=== PATIENT | female | born 1940 | race African-American/Black ===

== ENCOUNTER 2017-02-17 20:01 | Inpatient (IN) | payer OTHER ==
[~2017-02-17] VITALS: Ht 142.2 cm; Wt 43.3 kg
[~2017-02-17 20:01] MED LIST: ALLO100T PO; AMIO200T2 PO; AMLO5TAB2 PO; CLON0.1T PO; FURO20TA3 PO; LISI-334 PO; POTA10TA5 PO
[2017-02-17 21:21] LABS: BASO # 0.1 x10^3/uL (0.0-0.2); BASO % 1 % (0-3); EOS % 3 % (0-3); HEMATOCRIT 33.9 % (36.0-47.0); LYMPH # 1.4 x10^3/uL (1.0-4.8); LYMPH % 26 % (24-48); MEAN CORPUSCULAR HEMOGLOBIN 29 pg (25-35); MEAN CORPUSCULAR HGB CONC 33 g/dL (31-37); MEAN CORPUSCULAR VOLUME 90 fL (79-100); MONO % 9 % (0-9); NEUT % 61 % (31-73); PLATELET COUNT 222 x10^3/uL (140-400); RED BLOOD COUNT 3.77 x10^6/uL (3.50-5.40); RED CELL DISTRIBUTION WIDTH 16.3 % (11.5-14.5); WHITE BLOOD COUNT 5.4 x10^3/uL (4.0-11.0)
[2017-02-17 21:38] LABS: ALBUMIN 3.7 g/dL (3.4-5.0); ALBUMIN/GLOBULIN RATIO 0.8 (1.0-1.7); CALCIUM 11.3 mg/dL (8.5-10.1); CREATININE 1.4 mg/dL (0.6-1.0); GFR 43.9; PROTHROMBIN TIME PATIENT 12.1 SEC (11.7-14.0); TOTAL BILIRUBIN 0.6 mg/dL (0.2-1.0); TOTAL PROTEIN 8.4 g/dL (6.4-8.2)
[2017-02-17 21:40] LABS: POTASSIUM 2.9 mmol/L (3.5-5.1)
--- NOTE | 2017-02-17 21:42 | RAD ---
INDICATION: 77-year-old female with right-sided weakness COMPARISON: None TECHNIQUE: Axial, noncontrast CT images obtained through the head. One or more of the following individualized dose reduction techniques were utilized for this examination: 1. Automated exposure control; 2. Adjustment of the mA and/or kV according to patient size; 3. Use of iterative reconstruction technique. FINDINGS: No acute intracranial process is identified, specifically no acute blood products, midline shift, mass effect or extra-axial fluid collections. Ventricles and sulci appear appropriate for patient's age. Basilar cisterns are maintained. Diffuse periventricular and subcortical white matter low attenuation is nonspecific although likely sequelae of chronic microvascular ischemia. Intracranial vascular calcifications are present. The visualized paranasal sinuses are clear. Mastoid air cells are clear. No calvarial fracture is present. Overlying scalp is intact. IMPRESSION: No acute intracranial process. Findings suggestive of chronic microvascular ischemia. Electronically signed by: Ernestine Osborn (Feb 17, 2017 21:40:29)
[2017-02-17 22:16] LABS: BILIRUBIN,URINE NEGATIVE (NEG); GLUCOSE,URINE NEGATIVE (NEG); NITRITE,URINE NEGATIVE (NEG); PH,URINE 6.5; PROTEIN,URINE NEGATIVE (NEG-TRACE)
[2017-02-17 22:24] LABS: BACTERIA,URINE 0 /HPF (0-FEW); RBC,URINE OCC /HPF (0-2); SQUAMOUS EPITHELIAL CELL,UR FEW /LPF; WBC,URINE OCC /HPF (0-4)
[2017-02-17 22:31] LABS: BARBITURATES NEG (NEG); BENZODIAZEPINES NEG (NEG); CANNABINOIDS NEG (NEG); COCAINE NEG (NEG); METHADONE NEG (NEG); OPIATES NEG (NEG); PHENCYCLIDINE NEG (NEG)
[2017-02-17 22:32] LABS: ETHANOL, URINE NEG (NEG)
[2017-02-17] MEDS ORDERED: POTASSIUM CL 40MEQ IN 0.9%NACL 1,000 ML IV ONE (23:30)
[2017-02-17] MEDS ORDERED: POTASSIUM CHLORIDE 20 MEQ/15 ML ORAL LIQUID. PO ONE (23:30)
[2017-02-17] MEDS ORDERED: ASPIRIN 81 MG TAB.CHEW PO ONE (23:30)
[2017-02-18] VITALS (7 sets, daily range): BP systolic 139–170; BP diastolic 58–82
[2017-02-18] MEDS ORDERED: ACETAMINOPHEN 325 MG TABLET. PO PRN (01:15)
[2017-02-18] MEDS ORDERED: ONDANSETRON PF 4 MG/2 ML VIAL. IV PRN (01:15)
--- NOTE | 2017-02-18 02:13 | ED.ADGEN ---
Past Medical History Past Medical History: Hypertension, Other Past Surgical History: Hysterectomy Alcohol Use: Occasionally Drug Use: None Adult General Chief Complaint Chief Complaint: LOWER EXTREMITY SWELLING HPI HPI Patient is a 77 year old woman, history of hypertension, who presents to the emergency department with a complaint of "dragging my right foot". Patient states that she noted difficulty moving her right lower extremity that began this morning. It is unclear in the exact onset of symptoms. Patient states she also began experiencing some weakness and difficulty with fine motor control in her right upper extremity several days ago. Patient denies any history of CVA, denies any headache, any vision changes, any slurred speech, any chest pain, any shortness breath, any other areas of weakness. Denies any numbness or tingling. Denies any injuries, travel or surgery. Any missed doses of medications, any drugs, alcohol or cigarettes. Review of Systems Review of Systems Constitutional: Denies fever or chills. [] Eyes: Denies change in visual acuity. [] HENT: Denies nasal congestion or sore throat. [] Respiratory: Denies cough or shortness of breath. [] Cardiovascular: Denies chest pain or edema. [] GI: Denies abdominal pain, nausea, vomiting, bloody stools or diarrhea. [] : Denies dysuria. [] Musculoskeletal: Denies back pain or joint pain. [] Integument: Denies rash. [] Neurologic: Denies headache, weakness and decreased motor control in the right upper and right lower extremity. Endocrine: Denies polyuria or polydipsia. [] Lymphatic: Denies swollen glands. [] Psychiatric: Denies depression or anxiety. [] Current Medications Current Medications Current Medications Medications (Trade) Dose Ordered Sig/Camilo Start Time Stop Time Status Last Admin Dose Admin Aspirin (Children'S Aspirin) 324 mg 1X ONCE 02/17/17 23:30 02/17/17 23:31 DC 02/17/17 23:25 324 MG Potassium Chloride 40 meq 40 meq 1X ONCE 02/17/17 23:30 02/17/17 23:31 DC 02/17/17 23:27 40 MEQ Potassium Chloride/Sodium Chloride (KCl 40 Meq-NS 1,000 ml Iv Soln) 1,000 ml @ 75 mls/hr 1X ONCE 02/17/17 23:30 02/18/17 12:49 02/17/17 23:30 75 MLS/HR Allergies Allergies Allergies Coded Allergies Type Severity Reaction Last Updated Verified No Known Drug Allergies 11/12/14 No Physical Exam Physical Exam Constitutional: Well developed, well nourished, no acute distress, non-toxic appearance. [] HENT: Normocephalic, atraumatic, bilateral external ears normal, oropharynx moist, no oral exudates, nose normal. [] Eyes: PERRLA, EOMI, conjunctiva normal, no discharge. [] Neck: Normal range of motion, no tenderness, supple, no stridor. [] Cardiovascular:Heart rate regular rhythm, no murmur, S1, S2, rubs or gallops. [] Lungs & Thorax: Bilateral breath sounds clear to auscultation, no wheezing, rhonchi, rales. No chest or crepitus or tenderness. [] Abdomen: Bowel sounds normal, soft, no tenderness, no masses, no pulsatile masses. [] Skin: Warm, dry, no erythema, no rash. [] Back: No tenderness, no CVA tenderness. [] Extremities: No tenderness, no cyanosis, no clubbing, ROM intact, no edema. [] Neurologic: Alert and oriented X 3, patient with positive pronator drift on the right, ataxia with the right lower extremity, loss of 500 control in the right hand. Diminished sensation on the right upper and lower extremity. Cranial nerves are intact. Psychologic: Affect normal, judgement normal, mood normal. [] Current Patient Data Vital Signs Vital Signs Date Time Temp Pulse Resp B/P Pulse Ox O2 Delivery O2 Flow Rate FiO2 02/17/17 22:14 97.9 98 161/73 96 97.9 02/17/17 20:27 14 Room Air Lab Values Laboratory Tests Test 02/17/17 20:44 02/17/17 22:03 White Blood Count 5.4x10^3/uL (4.0-11.0) Red Blood Count 3.77x10^6/uL (3.50-5.40) Hemoglobin 11.0g/dL (12.0-15.5) L Hematocrit 33.9% (36.0-47.0) L Mean Corpuscular Volume 90fL (79-100) Mean Corpuscular Hemoglobin 29pg (25-35) Mean Corpuscular Hemoglobin Concent 33g/dL (31-37) Red Cell Distribution Width 16.3% (11.5-14.5) H Platelet Count 222x10^3/uL (140-400) Neutrophils (%) (Auto) 61% (31-73) Lymphocytes (%) (Auto) 26% (24-48) Monocytes (%) (Auto) 9% (0-9) Eosinophils (%) (Auto) 3% (0-3) Basophils (%) (Auto) 1% (0-3) Neutrophils # (Auto) 3.3x10^3uL (1.8-7.7) Lymphocytes # (Auto) 1.4x10^3/uL (1.0-4.8) Monocytes # (Auto) 0.5x10^3/uL (0.0-1.1) Eosinophils # (Auto) 0.2x10^3/uL (0.0-0.7) Basophils # (Auto) 0.1x10^3/uL (0.0-0.2) Prothrombin Time 12.1SEC (11.7-14.0) Prothrombin Time INR 1.0 (0.8-1.1) PTT 28SEC (24-38) Sodium Level 144mmol/L (136-145) Potassium Level 2.9mmol/L (3.5-5.1) *L Chloride Level 105mmol/L (98-107) Carbon Dioxide Level 28mmol/L (21-32) Anion Gap 11 (6-14) Blood Urea Nitrogen 13mg/dL (7-20) Creatinine 1.4mg/dL (0.6-1.0) H Estimated GFR (Cockcroft-Gault) 43.9 BUN/Creatinine Ratio 9 (6-20) Glucose Level 92mg/dL (70-99) Calcium Level 11.3mg/dL (8.5-10.1) H Total Bilirubin 0.6mg/dL (0.2-1.0) Aspartate Amino Transferase (AST) 53U/L (15-37) H Alanine Aminotransferase (ALT) 79U/L (14-59) H Alkaline Phosphatase 149U/L (46-116) H Troponin I Quantitative < 0.017ng/mL (0.000-0.055) UB-Dpm-T-Type Natriuretic Peptide 114pg/mL (0-449) Total Protein 8.4g/dL (6.4-8.2) H Albumin 3.7g/dL (3.4-5.0) Albumin/Globulin Ratio 0.8 (1.0-1.7) L Urine Collection Type Unknown Urine Color Yellow Urine Clarity Clear Urine pH 6.5 Urine Specific [place] 1.010 Urine Protein Negativemg/dL (NEG-TRACE) Urine Glucose (UA) Negativemg/dL (NEG) Urine Ketones (Stick) Negativemg/dL (NEG) Urine Blood Negative (NEG) Urine Nitrite Negative (NEG) Urine Bilirubin Negative (NEG) Urine Urobilinogen Dipstick 1.0mg/dL (0.2 mg/dL) Urine Leukocyte Esterase Negative (NEG) Urine RBC Occ/HPF (0-2) Urine WBC Occ/HPF (0-4) Urine Squamous Epithelial Cells Few/LPF Urine Bacteria 0/HPF (0-FEW) Urine Hyaline Casts Few/HPF Urine Mucus Slight/LPF Urine Opiates Screen Neg (NEG) Urine Methadone Screen Neg (NEG) Urine Barbiturates Neg (NEG) Urine Phencyclidine Screen Neg (NEG) Urine Amphetamine/Methamphetamine Neg (NEG) Urine Benzodiazepines Screen Neg (NEG) Urine Cocaine Screen Neg (NEG) Urine Cannabinoids Screen Neg (NEG) Urine Ethyl Alcohol Neg (NEG) Laboratory Tests 02/17/17 20:44 Laboratory Tests 02/17/17 20:44 EKG EKG EC: Sinus rhythm, heart rate 90 beats minute, upright axis, QTC of 472, VT of 176, QRS of 86, low limb lead voltage, contour abnormality is noted in the inferior leads. Abnormal ECG, does not meet STEMI criteria. As interpreted by me. [] Radiology/Procedures Radiology/Procedures [] [facility] [address] [place] [address] IMAGING REPORT Signed PATIENT: KIRK SILVA ACCOUNT: [id number] : 1940 LOCATION: ER AGE: 77 SEX: F EXAM STATUS: REG ER ORD. PHYSICIAN: JOSEPHINE MENCHACA DO REASON: R sided weakness PROCEDURE: HEAD WO CONTRAST INDICATION: 77-year-old female with right-sided weakness COMPARISON: None TECHNIQUE: Axial, noncontrast CT images obtained through the head. One or more of the following individualized dose reduction techniques were utilized for this examination: 1. Automated exposure control; 2. Adjustment of the mA and/or kV according to patient size; 3. Use of iterative reconstruction technique. FINDINGS: No acute intracranial process is identified, specifically no acute blood products, midline shift, mass effect or extra-axial fluid collections. Ventricles and sulci appear appropriate for patient's age. Basilar cisterns are maintained. Diffuse periventricular and subcortical white matter low attenuation is nonspecific although likely sequelae of chronic microvascular ischemia. Intracranial vascular calcifications are present. The visualized paranasal sinuses are clear. Mastoid air cells are clear. No calvarial fracture is present. Overlying scalp is intact. IMPRESSION: No acute intracranial process. Findings suggestive of chronic microvascular ischemia. Electronically signed by: Roxana Osborn (Feb 17, 2017 21:40:29) DICTATED and SIGNED BY: ROXANA OSBORN MD DATE: 02/17/172139 CC: ASHLEE CARRION MD; JOSEPHINE MENCHACA DO ~ Impressions: Chest x-ray: One view: Normal cardiopulmonary silhouette, no focal infiltrates, no effusions, no soft tissue or bony abnormalities identified. As interpreted by me. Right Ankle x-ray: Three-view: Degenerative changes noted, no evidence of acute fracture, subluxation, soft tissue or bony abnormalities identified. Right foot x-ray: Three-view: Degenerative changes noted, no evidence of acute fracture, civilization, soft tissue or bony abnormalities identified. Course & Med Decision Making Course & Med Decision Making Pertinent Labs and Imaging studies reviewed. (See chart for details) Patient's examination concerning for neurologic abnormality, CVA. CT of the head obtained, revealed no evidence of acute abnormalities. Laboratory studies obtained revealed hypokalemia with a potassium of 2.9. Potassium was repleted in the emergency department after patient's past swallow study without issue. No other concerning finding identified. Patient was agreeable for initial hospital for evaluation of ischemic CVA. As stated, symptoms began several days ago, and patient is outside the window for any intervention. NIH scale is 5 on initial evaluation. Symptoms are unchanged and reevaluation in the ED. Findings as above discussed with Dr. Betancur of neurology, no interventions at this time recommended, aside from initiation of Plavix as patient is is already on daily aspirin, he will evaluate the patient in the hospital, MRI and carotid Dopplers ordered. Findings as above discussed with Dr. Summers of internal medicine, patient accepted to her service as a full admission to the medical telemetry floor, with neurology consultation and continued evaluation as stated. Bridge orders entered per discussion. Dragon Disclaimer Dragon Disclaimer This electronic medical record was generated, in whole or in part, using a voice recognition dictation system. Departure Impression: Primary Impression: Right sided weakness Additional Impression: CVA (cerebral vascular accident) Disposition: ADMITTED INPATIENT Admitting Physician: Other Condition: STABLE Problem Qualifiers JOSEPHINE MENCHACA DO Feb 18, 2017 02:13
[2017-02-18] MEDS ORDERED: DOXA2TAB2 PO (03:42)
[2017-02-18] MEDS ORDERED: ASPI-482 PO (03:42)
[2017-02-18] MEDS ORDERED: AMLO10TA2 PO (03:42)
[2017-02-18] MEDS ORDERED: CLON0.1T PO (03:42)
[2017-02-18] MEDS ORDERED: OMEG300C PO (03:42)
--- NOTE | 2017-02-18 06:12 | EKG ---
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
--- NOTE | 2017-02-18 07:46 | RAD ---
Carotid ultrasound, 02/18/2017: History: Right-sided weakness Duplex evaluation of the carotid arteries in neck was performed including grayscale, color-flow and spectral Doppler analysis. There is extensive atherosclerotic plaquing in both common carotid arteries as well as at the carotid bifurcations. The plaques are partially calcified. Shadowing from the plaques obscuring portions of the underlying lumen, particularly at the bifurcation levels. On the right, there is a segment of the proximal to mid internal carotid artery in which no internal color flow can be visualized. The appearance suggests occlusion versus high-grade stenosis. Similar findings were present on the 09/03/2013 study. On the left, there is turbulent flow distal to the bifurcation plaque. The peak systolic velocity in this region is 60 cm/s with an end-diastolic velocity of 18 cm/s. The Doppler findings suggest narrowing in the 0-50% diameter range, while the color images suggest a greater degree of narrowing, in the 50-70% diameter range. On the previous study a focal moderate velocity acceleration up to 250 cm/s was seen in the proximal left internal carotid artery. The lack of demonstration of that jet on the current exam is probably on a technical basis. Alternatively, critical stenosis could be causing the velocities to decrease. Antegrade flow is present in both vertebral arteries in the neck. IMPRESSION: 1. Extensive calcific plaquing in the common carotid arteries and at both carotid bifurcations. 2. 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 3. Narrowing of the proximal left internal carotid artery in the 50-70% diameter range as described above. 4. CT angiography may be useful for further evaluation, if clinically indicated. Note: Stenosis calculations for CT, MRA and conventional angiography are based upon determination of the distal ICA diameter in accordance with the NASCET methodology. Stenosis calculations for Doppler studies are derived from validated velocity criteria which are known to correlate with NASCET methodology of determining stenosis.
--- NOTE | 2017-02-18 08:23 | RAD ---
Portable chest, 02/17/2017: History: Right-sided weakness, hypertension Comparison is made to a study from 11/10/2014. The heart size is normal. There is calcific plaquing of the aorta and its branches. The pulmonary vascularity is within normal limits. There are scattered parenchymal scars. No acute infiltrates are seen. There is no evidence of pleural fluid. The bony structures are demineralized. Scattered degenerative changes are present in the spine. IMPRESSION: No acute cardiopulmonary abnormality is detected.
--- NOTE | 2017-02-18 08:41 | RAD ---
Right foot, 3 views, 02/17/2017: History: Foot pain Comparison is made to a study from 08/15/2011. The bony structures are demineralized. There are mild scattered degenerative changes, including the first MTP joint. No fracture or destructive bony lesion is seen. Arterial calcifications are present. IMPRESSION: 1. Demineralization. 2. Mild degenerative change. 3. No acute bony abnormality is detected. Right ankle, 3 views, 02/17/2017: There is bony demineralization. No acute fracture or dislocation is identified. There is moderate diffuse soft tissue swelling about the ankle. IMPRESSION: No acute bony abnormality is detected.
[2017-02-18] MEDS ORDERED: ASPIRIN ENTERIC COATED 81 MG TABLET.DR. PO SCH (09:00)
--- NOTE | 2017-02-18 09:10 | PDOC1 ---
History and Physical Date of Admission Date of Admission DATE: 02/18/17 TIME: 09:02 Identification/Chief Complaint Chief Complaint right foot weakness Source Source: Chart review, Patient History of Present Illness History of Present Illness Ms. Rome, is a 77 year old woman, admit from ER, new right foot weakness. Problem began about 24 hours ago now. was over 12 hours when presented to ER Right foot was draggeing when she walked, she thinks it feels a little better no complaint of swallowing, and performed well in ER eval She has been compliant with meds, had no pain, PCP is Dr. August Prior Hx of tobaccoism Past Medical History Cardiovascular: CAD, HTN GI: No pertinent hx Heme/Onc: No pertinent hx Hepatobiliary: No pertinent hx Musculoskeletal: low back pain Rheumatologic: No pertinent hx Infectious disease: No pertinent hx, Gonorrhea Past Surgical History Past Surgical History: Hysterectomy Family History Family History: No Significant, Hypertension Social History Smoke: Quit ALCOHOL: none Drugs: None Current Problem List Problem List Problems Medical Problems: (1) CVA (cerebral vascular accident) Status: Acute (2) Right sided weakness Status: Acute Problems: Current Medications Current Medications Current Medications Aspirin (Children'S Aspirin) 324 mg 1X ONCE PO Last administered on 02/17/17 23:25; Start 02/17/17 at 23:30; Stop 02/17/17 at 23:31; Status DC Potassium Chloride 40 meq 40 meq 1X ONCE PO Last administered on 02/17/17 23: 27; Start 02/17/17 at 23:30; Stop 02/17/17 at 23:31; Status DC Potassium Chloride/Sodium Chloride (KCl 40 Meq-NS 1,000 ml Iv Soln) 1,000 ml @ 75 mls/hr 1X ONCE IV Last administered on 02/17/17 23:30; Start 02/17/17 at 23:30; Stop 02/18/17 at 12:49 Ondansetron HCl (Zofran) 4 mg PRN Q8HRS PRN IV NAUSEA/VOMITING; Start 02/18/17 at 01:15; Stop 02/19/17 at 01:14 Acetaminophen (Tylenol) 650 mg PRN Q4HRS PRN PO FEVER; Start 02/18/17 at 01:15 ; Stop 02/19/17 at 01:14 Clopidogrel Bisulfate (Plavix) 75 mg DAILYWBKFT PO ; Start 02/18/17 at 08:00 Allopurinol (Zyloprim) 100 mg DAILY PO ; Start 02/18/17 at 09:00 Amiodarone HCl (Cordarone) 200 mg DAILY PO ; Start 02/18/17 at 09:00 Amlodipine Besylate (Norvasc) 10 mg DAILY PO ; Start 02/18/17 at 09:00 Aspirin (Ecotrin) 81 mg DAILY PO ; Start 02/18/17 at 09:00 Clonidine HCl (Catapres) 0.1 mg Q8HRS PO ; Start 02/18/17 at 09:00 Doxazosin Mesylate (Cardura) 2 mg DAILY PO ; Start 02/18/17 at 09:00 Fish Oil (Fish Oil) 1,000 mg DAILY PO ; Start 02/18/17 at 09:00 Active Scripts Active Reported Fish Oil (Jackson-3 Fatty Acids) 300 Mg Capsule 300 Mg PO DAILY Amlodipine Besylate 10 Mg Tablet 10 Mg PO DAILY Doxazosin Mesylate 2 Mg Tablet 1 Tab PO DAILY Clonidine Hcl 0.1 Mg Tablet 0.1 Mg PO Q8HRS Aspir 81 (Aspirin) 81 Mg Tablet.dr 1 Tab PO DAILY Amiodarone Hcl 200 Mg Tablet 200 Mg PO DAILY Allopurinol 100 Mg Tablet 1 Tab PO DAILY Allergies Allergies: Coded Allergies: No Known Drug Allergies (Unverified , 11/12/14) ROS General: No: Appetite, Chills, Fatigue, Malaise, Night Sweats, Other PSYCHOLOGICAL ROS: No: Anxiety, Behavioral Disorder, Concentration difficultie , Decreased libido, Depression, Disorientation, Hallucinations, Hostility, Irritablity, Memory difficulties, Mood Swings, Obsessive thoughts, Other, Physical abuse, Sexual abuse, Sleep disturbances, Suicidal ideation Eyes: No Blurry vision, No Decreased vision, No Double vision, No Dry eyes, No Excessive tearing, No Eye Pain, No Itchy Eyes, No Loss of vision, No Other, No Photophobia, No Scotomata, No Uses contacts, No Uses glasses HEENT: No: Epistaxis, Heacaches, Hearing change, Nasal congestion, Nasal discharge, Oral lesions, Other, Sinus pain, Sneezing, Snoring, Sore Throat, Tinnitus, Vertigo, Visual Changes, Vocal changes Respiratory: No: Cough, Hemoptysis, Orthopnea, Other, Pleuritic Pain, SOB with excertion, Shortness of breath, Sputum Changes, Stridor, Tachypnea, Wheezing Cardiovascular: No Chest Pain, No Edema, No Lt Headedness, No Orthopnea, No Other, No Palpitations, No Paroxysmal Noc. Dyspnea Gastrointestinal: No Abdominal Pain, No Constipation, No Diarrhea, No Hematochezia, No Melena, No Nausea, No Other, No Vomiting Genitourinary: No , No , No , No , No , No , No , No Discharge, No Dysuria, No Flank Pain, No Frequency, No Hematuria, No Incontinence, No Other, No Pain, No Retention, No Urgency Musculoskeletal: Yes Gait Disturbance, No Joint Pain, No Joint Stiffness, No Joint Swelling, No Muscle Pain, No Muscular Weakness, No Other, No Pain In:, No Swelling In: Neurological: Yes Gait Disturbance, No Behavorial Changes, No Bowel/Bladder ControlChng, No Confusion, No Dizziness, No Headaches, No Impaired Coord/balance, No Memory Loss, No Numbness/ Tingling, No Other, No Seizures, No Speech Problems, No Tremors, No Visual Changes, No Weakness Skin: No Acne, No Dry Skin, No Eczema, No Hair Changes, No Lumps, No Mole Changes, No Mottling, No Nail Changes, No Other, No Pruritus, No Rash, No Skin Lesion Changes Physical Exam General: Alert, Oriented X3, Cooperative, No acute distress HEENT: Atraumatic, PERRLA, EOMI Lungs: Clear to auscultation (limited vol) Heart: S1S2, RRR Abdomen: Normal bowel sounds, Soft Rectal Exam: not examined, deferred Extremities: No clubbing, No edema, Normal pulses Skin: No breakdown, No significant lesion Neuro: Normal speech, Normal tone, Sensation intact, Other (right foot weak, not quite 5/5, arm str. 5/5 bilat, no facial droop) Psych/Mental Status: Mental status NL, Mood NL Vitals Vitals Vital Signs Date Time Temp Pulse Resp B/P Pulse Ox O2 Delivery O2 Flow Rate FiO2 02/18/17 07:00 98.5 89 17 170/82 100 Room Air 98.5 Labs Labs Laboratory Tests Test 02/17/17 20:44 02/17/17 22:03 White Blood Count 5.4x10^3/uL (4.0-11.0) Red Blood Count 3.77x10^6/uL (3.50-5.40) Hemoglobin 11.0g/dL (12.0-15.5) Hematocrit 33.9% (36.0-47.0) Mean Corpuscular Volume 90fL (79-100) Mean Corpuscular Hemoglobin 29pg (25-35) Mean Corpuscular Hemoglobin Concent 33g/dL (31-37) Red Cell Distribution Width 16.3% (11.5-14.5) Platelet Count 222x10^3/uL (140-400) Neutrophils (%) (Auto) 61% (31-73) Lymphocytes (%) (Auto) 26% (24-48) Monocytes (%) (Auto) 9% (0-9) Eosinophils (%) (Auto) 3% (0-3) Basophils (%) (Auto) 1% (0-3) Neutrophils # (Auto) 3.3x10^3uL (1.8-7.7) Lymphocytes # (Auto) 1.4x10^3/uL (1.0-4.8) Monocytes # (Auto) 0.5x10^3/uL (0.0-1.1) Eosinophils # (Auto) 0.2x10^3/uL (0.0-0.7) Basophils # (Auto) 0.1x10^3/uL (0.0-0.2) Prothrombin Time 12.1SEC (11.7-14.0) Prothromb Time International Ratio 1.0 (0.8-1.1) Activated Partial Thromboplast Time 28SEC (24-38) Sodium Level 144mmol/L (136-145) Potassium Level 2.9mmol/L (3.5-5.1) Chloride Level 105mmol/L (98-107) Carbon Dioxide Level 28mmol/L (21-32) Anion Gap 11 (6-14) Blood Urea Nitrogen 13mg/dL (7-20) Creatinine 1.4mg/dL (0.6-1.0) Estimated GFR (Cockcroft-Gault) 43.9 BUN/Creatinine Ratio 9 (6-20) Glucose Level 92mg/dL (70-99) Calcium Level 11.3mg/dL (8.5-10.1) Total Bilirubin 0.6mg/dL (0.2-1.0) Aspartate Amino Transf (AST/SGOT) 53U/L (15-37) Alanine Aminotransferase (ALT/SGPT) 79U/L (14-59) Alkaline Phosphatase 149U/L (46-116) Troponin I Quantitative < 0.017ng/mL (0.000-0.055) EB-Baf-K-Type Natriuretic Peptide 114pg/mL (0-449) Total Protein 8.4g/dL (6.4-8.2) Albumin 3.7g/dL (3.4-5.0) Albumin/Globulin Ratio 0.8 (1.0-1.7) Urine Collection Type Unknown Urine Color Yellow Urine Clarity Clear Urine pH 6.5 Urine Specific [place] 1.010 Urine Protein Negativemg/dL (NEG-TRACE) Urine Glucose (UA) Negativemg/dL (NEG) Urine Ketones (Stick) Negativemg/dL (NEG) Urine Blood Negative (NEG) Urine Nitrite Negative (NEG) Urine Bilirubin Negative (NEG) Urine Urobilinogen Dipstick 1.0mg/dL (0.2 mg/dL) Urine Leukocyte Esterase Negative (NEG) Urine RBC Occ/HPF (0-2) Urine WBC Occ/HPF (0-4) Urine Squamous Epithelial Cells Few/LPF Urine Bacteria 0/HPF (0-FEW) Urine Hyaline Casts Few/HPF Urine Mucus Slight/LPF Urine Opiates Screen Neg (NEG) Urine Methadone Screen Neg (NEG) Urine Barbiturates Neg (NEG) Urine Phencyclidine Screen Neg (NEG) Urine Amphetamine/Methamphetamine Neg (NEG) Urine Benzodiazepines Screen Neg (NEG) Urine Cocaine Screen Neg (NEG) Urine Cannabinoids Screen Neg (NEG) Urine Ethyl Alcohol Neg (NEG) Laboratory Tests Test 02/17/17 20:44 02/17/17 22:03 White Blood Count 5.4x10^3/uL (4.0-11.0) Red Blood Count 3.77x10^6/uL (3.50-5.40) Hemoglobin 11.0g/dL (12.0-15.5) Hematocrit 33.9% (36.0-47.0) Mean Corpuscular Volume 90fL (79-100) Mean Corpuscular Hemoglobin 29pg (25-35) Mean Corpuscular Hemoglobin Concent 33g/dL (31-37) Red Cell Distribution Width 16.3% (11.5-14.5) Platelet Count 222x10^3/uL (140-400) Neutrophils (%) (Auto) 61% (31-73) Lymphocytes (%) (Auto) 26% (24-48) Monocytes (%) (Auto) 9% (0-9) Eosinophils (%) (Auto) 3% (0-3) Basophils (%) (Auto) 1% (0-3) Neutrophils # (Auto) 3.3x10^3uL (1.8-7.7) Lymphocytes # (Auto) 1.4x10^3/uL (1.0-4.8) Monocytes # (Auto) 0.5x10^3/uL (0.0-1.1) Eosinophils # (Auto) 0.2x10^3/uL (0.0-0.7) Basophils # (Auto) 0.1x10^3/uL (0.0-0.2) Prothrombin Time 12.1SEC (11.7-14.0) Prothromb Time International Ratio 1.0 (0.8-1.1) Activated Partial Thromboplast Time 28SEC (24-38) Sodium Level 144mmol/L (136-145) Potassium Level 2.9mmol/L (3.5-5.1) Chloride Level 105mmol/L (98-107) Carbon Dioxide Level 28mmol/L (21-32) Anion Gap 11 (6-14) Blood Urea Nitrogen 13mg/dL (7-20) Creatinine 1.4mg/dL (0.6-1.0) Estimated GFR (Cockcroft-Gault) 43.9 BUN/Creatinine Ratio 9 (6-20) Glucose Level 92mg/dL (70-99) Calcium Level 11.3mg/dL (8.5-10.1) Total Bilirubin 0.6mg/dL (0.2-1.0) Aspartate Amino Transf (AST/SGOT) 53U/L (15-37) Alanine Aminotransferase (ALT/SGPT) 79U/L (14-59) Alkaline Phosphatase 149U/L (46-116) Troponin I Quantitative < 0.017ng/mL (0.000-0.055) [id number]-Vcs-[id number]-Type Natriuretic Peptide 114pg/mL (0-449) Total Protein 8.4g/dL (6.4-8.2) Albumin 3.7g/dL (3.4-5.0) Albumin/Globulin Ratio 0.8 (1.0-1.7) Urine Collection Type Unknown Urine Color Yellow Urine Clarity Clear Urine pH 6.5 Urine Specific [place] 1.010 Urine Protein Negativemg/dL (NEG-TRACE) Urine Glucose (UA) Negativemg/dL (NEG) Urine Ketones (Stick) Negativemg/dL (NEG) Urine Blood Negative (NEG) Urine Nitrite Negative (NEG) Urine Bilirubin Negative (NEG) Urine Urobilinogen Dipstick 1.0mg/dL (0.2 mg/dL) Urine Leukocyte Esterase Negative (NEG) Urine RBC Occ/HPF (0-2) Urine WBC Occ/HPF (0-4) Urine Squamous Epithelial Cells Few/LPF Urine Bacteria 0/HPF (0-FEW) Urine Hyaline Casts Few/HPF Urine Mucus Slight/LPF Urine Opiates Screen Neg (NEG) Urine Methadone Screen Neg (NEG) Urine Barbiturates Neg (NEG) Urine Phencyclidine Screen Neg (NEG) Urine Amphetamine/Methamphetamine Neg (NEG) Urine Benzodiazepines Screen Neg (NEG) Urine Cocaine Screen Neg (NEG) Urine Cannabinoids Screen Neg (NEG) Urine Ethyl Alcohol Neg (NEG) VTE Prophylaxis Ordered VTE Prophylaxis Devices: No VTE Pharmacological Prophylaxi: No Assessment/Plan Assessment/Plan Right foot weakness, new Hemiparesis, likely CVA on asa and Plavix, Hx A fib htn, chronic diastolic CHF some baseline weakness, acquired CKD 3 hypokalemia total protein evelated, with high total calcium, check SPEP, UPEP MILAGRO FLORES MD Feb 18, 2017 09:10
[2017-02-18] MEDS ORDERED: ALBUTEROL SULFATE 2.5 MG/3 ML NEBU. NEB PRN (09:15)
[2017-02-18] MEDS: OMEGA-3 FATTY ACIDS/FISH OIL 1,000 MG CAPSULE. PO SCH (10:29)
[2017-02-18] MEDS: CLOPIDOGREL BISULFATE 75 MG TABLET PO SCH (10:29)
[2017-02-18] MEDS: AMLODIPINE BESYLATE 10 MG TABLET PO SCH (10:29)
[2017-02-18] MEDS: ALLOPURINOL 100 MG TABLET. PO SCH (10:30)
[2017-02-18] MEDS: DOXAZOSIN MESYLATE 1 MG TABLET PO SCH (10:30)
[2017-02-18] MEDS: CLONIDINE HCL 0.1 MG TABLET PO SCH ×3 (10:30→20:55)
[2017-02-18] MEDS: AMIODARONE HCL 200 MG TABLET PO SCH (10:31)
--- NOTE | 2017-02-18 11:15 | RAD ---
PROCEDURE MRI of the brain without contrast 02/18/2017 HISTORY Right-sided weakness for 2 weeks. TECHNIQUE Unenhanced T1 weighted sagittal and axial, T2 weighted axial coronal and FLAIR, gradient echo, and diffusion weighted axial images of the brain were obtained. Intravenous gadolinium was not administered due to the patient's diminished GFR. FINDINGS Comparison is made to a CT scan of the head dated 02/17/2017. There is generalized parenchymal atrophy. Patchy, confluent and multiple areas of abnormally increased signal intensity are seen within the periventricular and subcortical white matter both cerebral hemispheres along with the yasmeen on the FLAIR and T2 weighted images consistent with areas of small vessel ischemic disease. Old areas of lacunar infarction are seen involving the left and right thalamus and the yasmeen. These measure 2 millimeters to 5 millimeters in size. Multiple small focal areas decreased signal intensity are seen scattered throughout the brain on the gradient echo images. These measure 1 to 4 millimeters in size. There is no surrounding edema or associated mass effect. These could represent cavernous angiomas or could reflect of the sequela of previous microhemorrhage. No acute parenchymal abnormality is seen. There is no MRI evidence of acute ischemia/infarction. No extra-axial fluid collection is noted. Mild to moderate mucosal thickening is seen scattered throughout the paranasal sinuses. 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 IMPRESSION No acute parenchymal abnormality is seen. Electronically signed by: Dominik Valle MD (Feb 18, 2017 11:13:49)
--- NOTE | 2017-02-18 11:54 | PDOC2 ---
NEUROLOGY CONSULT Date of Admission Date of Admission DATE: 02/18/17 TIME: 11:46 Reason for Consult Reason for Consult: Stroke symptoms Referring Physician Referring Physician: Dr. Caceres PCP: Dr. White Source Source: Caregiver, Chart review, Patient History of Present Illness History of Present Illness The patient is a 77-year-old right-handed female who came into the emergency department yesterday was symptoms began at least 12 hours before. Thus, she was not a candidate for tissue plasminogen activator. She complains of clumsiness of her right hand and dragging of the right foot. She denies the prior history of stroke, seizure, or head injury. She denies headache, diplopia, dysarthria, or dysphagia. Past Medical History Cardiovascular: HTN Past Surgical History Past Surgical History: Hysterectomy Family History Family History: No pertinent hx Social History Social History , non-smoker, nondrinker Current Medications Current Medications Current Medications Aspirin (Children'S Aspirin) 324 mg 1X ONCE PO Last administered on 02/17/17 23:25; Start 02/17/17 at 23:30; Stop 02/17/17 at 23:31; Status DC Potassium Chloride 40 meq 40 meq 1X ONCE PO Last administered on 02/17/17 23: 27; Start 02/17/17 at 23:30; Stop 02/17/17 at 23:31; Status DC Potassium Chloride/Sodium Chloride (KCl 40 Meq-NS 1,000 ml Iv Soln) 1,000 ml @ 75 mls/hr 1X ONCE IV Last administered on 02/17/17 23:30; Start 02/17/17 at 23:30; Stop 02/18/17 at 12:49 Ondansetron HCl (Zofran) 4 mg PRN Q8HRS PRN IV NAUSEA/VOMITING; Start 02/18/17 at 01:15; Stop 02/19/17 at 01:14 Acetaminophen (Tylenol) 650 mg PRN Q4HRS PRN PO FEVER; Start 02/18/17 at 01:15 ; Stop 02/19/17 at 01:14 Clopidogrel Bisulfate (Plavix) 75 mg DAILYWBKFT PO Last administered on 10:29; Start 02/18/17 at 08:00 Allopurinol (Zyloprim) 100 mg DAILY PO Last administered on 02/18/17 10:30; Start 02/18/17 at 09:00 Amiodarone HCl (Cordarone) 200 mg DAILY PO Last administered on 02/18/17 10:31 ; Start 02/18/17 at 09:00 Amlodipine Besylate (Norvasc) 10 mg DAILY PO Last administered on 02/18/17 10: 29; Start 02/18/17 at 09:00 Aspirin (Ecotrin) 81 mg DAILY PO Last administered on 02/18/17 10:31; Start at 09:00 Clonidine HCl (Catapres) 0.1 mg Q8HRS PO Last administered on 02/18/17 10:30; Start 02/18/17 at 09:00 Doxazosin Mesylate (Cardura) 2 mg DAILY PO Last administered on 02/18/17 10:30 ; Start 02/18/17 at 09:00 Fish Oil (Fish Oil) 1,000 mg DAILY PO Last administered on 02/18/17 10:29; Start 02/18/17 at 09:00 Albuterol Sulfate (Ventolin Neb Soln) 2.5 mg PRN QID PRN NEB SHORTNESS OF BREATH; Start 02/18/17 at 09:15 Active Scripts Active Reported Fish Oil (Garland-3 Fatty Acids) 300 Mg Capsule 300 Mg PO DAILY Amlodipine Besylate 10 Mg Tablet 10 Mg PO DAILY Doxazosin Mesylate 2 Mg Tablet 1 Tab PO DAILY Clonidine Hcl 0.1 Mg Tablet 0.1 Mg PO Q8HRS Aspir 81 (Aspirin) 81 Mg Tablet.dr 1 Tab PO DAILY Amiodarone Hcl 200 Mg Tablet 200 Mg PO DAILY Allopurinol 100 Mg Tablet 1 Tab PO DAILY Allergies Allergies: Coded Allergies: No Known Drug Allergies (Unverified , 11/12/14) ROS Review of System Negative for fevers, chills, weight loss, shortness of breath, chest pain, indigestion, hematochezia, melena, dysuria. Full 14-point review systems is negative. Physical Exam Physical Examination PHYSICAL EXAMINATION: Vital signs: see above. General appearance is normal and in no acute distress. HEENT: Normocephalic and nontraumatic. Eyes, nose, ears, and throat are unremarkable. Neck is supple. No lymphadenopathy. No bruits are heard over the carotid artery. No crepitus. NEUROLOGICAL EXAMINATION: Mental Status Examination: Alert. Oriented to time, place, and person. Answers questions and follows commends. Pupils are equal round and reactive to light and accommodation. Extraocular movements are intact. Visual field exam shows no defect on the direct confrontation. No motor or sensory deficits on the facial exam. Uvula in the midline and the soft palate elevated symmetrically. No deviation of the tongue to any direction. Gross hearing is normal. Shoulder shrug normal. Muscle tone is normal. Muscle strength is 4/5 right foot. Deep tendon reflexes are 2+ all around. Plantar reflex is with flexion response bilaterally. Wevodr-af-lera test performance is accurate. There is right dysdiadochokinesia. Gait not tested. Sensory exam shows no deficits. No cerebellar signs are elicited. Vitals VITALS Vital Signs Date Time Temp Pulse Resp B/P Pulse Ox O2 Delivery O2 Flow Rate FiO2 02/18/17 11:00 98.0 88 18 164/80 96 Room Air 98.0 Labs Labs Laboratory Tests Test 02/17/17 20:44 02/17/17 22:03 White Blood Count 5.4x10^3/uL (4.0-11.0) Red Blood Count 3.77x10^6/uL (3.50-5.40) Hemoglobin 11.0g/dL (12.0-15.5) Hematocrit 33.9% (36.0-47.0) Mean Corpuscular Volume 90fL (79-100) Mean Corpuscular Hemoglobin 29pg (25-35) Mean Corpuscular Hemoglobin Concent 33g/dL (31-37) Red Cell Distribution Width 16.3% (11.5-14.5) Platelet Count 222x10^3/uL (140-400) Neutrophils (%) (Auto) 61% (31-73) Lymphocytes (%) (Auto) 26% (24-48) Monocytes (%) (Auto) 9% (0-9) Eosinophils (%) (Auto) 3% (0-3) Basophils (%) (Auto) 1% (0-3) Neutrophils # (Auto) 3.3x10^3uL (1.8-7.7) Lymphocytes # (Auto) 1.4x10^3/uL (1.0-4.8) Monocytes # (Auto) 0.5x10^3/uL (0.0-1.1) Eosinophils # (Auto) 0.2x10^3/uL (0.0-0.7) Basophils # (Auto) 0.1x10^3/uL (0.0-0.2) Prothrombin Time 12.1SEC (11.7-14.0) Prothromb Time International Ratio 1.0 (0.8-1.1) Activated Partial Thromboplast Time 28SEC (24-38) Sodium Level 144mmol/L (136-145) Potassium Level 2.9mmol/L (3.5-5.1) Chloride Level 105mmol/L (98-107) Carbon Dioxide Level 28mmol/L (21-32) Anion Gap 11 (6-14) Blood Urea Nitrogen 13mg/dL (7-20) Creatinine 1.4mg/dL (0.6-1.0) Estimated GFR (Cockcroft-Gault) 43.9 BUN/Creatinine Ratio 9 (6-20) Glucose Level 92mg/dL (70-99) Calcium Level 11.3mg/dL (8.5-10.1) Total Bilirubin 0.6mg/dL (0.2-1.0) Aspartate Amino Transf (AST/SGOT) 53U/L (15-37) Alanine Aminotransferase (ALT/SGPT) 79U/L (14-59) Alkaline Phosphatase 149U/L (46-116) Troponin I Quantitative < 0.017ng/mL (0.000-0.055) RG-Iuk-K-Type Natriuretic Peptide 114pg/mL (0-449) Total Protein 8.4g/dL (6.4-8.2) Albumin 3.7g/dL (3.4-5.0) Albumin/Globulin Ratio 0.8 (1.0-1.7) Urine Collection Type Unknown Urine Color Yellow Urine Clarity Clear Urine pH 6.5 Urine Specific [place] 1.010 Urine Protein Negativemg/dL (NEG-TRACE) Urine Glucose (UA) Negativemg/dL (NEG) Urine Ketones (Stick) Negativemg/dL (NEG) Urine Blood Negative (NEG) Urine Nitrite Negative (NEG) Urine Bilirubin Negative (NEG) Urine Urobilinogen Dipstick 1.0mg/dL (0.2 mg/dL) Urine Leukocyte Esterase Negative (NEG) Urine RBC Occ/HPF (0-2) Urine WBC Occ/HPF (0-4) Urine Squamous Epithelial Cells Few/LPF Urine Bacteria 0/HPF (0-FEW) Urine Hyaline Casts Few/HPF Urine Mucus Slight/LPF Urine Opiates Screen Neg (NEG) Urine Methadone Screen Neg (NEG) Urine Barbiturates Neg (NEG) Urine Phencyclidine Screen Neg (NEG) Urine Amphetamine/Methamphetamine Neg (NEG) Urine Benzodiazepines Screen Neg (NEG) Urine Cocaine Screen Neg (NEG) Urine Cannabinoids Screen Neg (NEG) Urine Ethyl Alcohol Neg (NEG) Laboratory Tests Test 02/17/17 20:44 02/17/17 22:03 White Blood Count 5.4x10^3/uL (4.0-11.0) Red Blood Count 3.77x10^6/uL (3.50-5.40) Hemoglobin 11.0g/dL (12.0-15.5) Hematocrit 33.9% (36.0-47.0) Mean Corpuscular Volume 90fL (79-100) Mean Corpuscular Hemoglobin 29pg (25-35) Mean Corpuscular Hemoglobin Concent 33g/dL (31-37) Red Cell Distribution Width 16.3% (11.5-14.5) Platelet Count 222x10^3/uL (140-400) Neutrophils (%) (Auto) 61% (31-73) Lymphocytes (%) (Auto) 26% (24-48) Monocytes (%) (Auto) 9% (0-9) Eosinophils (%) (Auto) 3% (0-3) Basophils (%) (Auto) 1% (0-3) Neutrophils # (Auto) 3.3x10^3uL (1.8-7.7) Lymphocytes # (Auto) 1.4x10^3/uL (1.0-4.8) Monocytes # (Auto) 0.5x10^3/uL (0.0-1.1) Eosinophils # (Auto) 0.2x10^3/uL (0.0-0.7) Basophils # (Auto) 0.1x10^3/uL (0.0-0.2) Prothrombin Time 12.1SEC (11.7-14.0) Prothromb Time International Ratio 1.0 (0.8-1.1) Activated Partial Thromboplast Time 28SEC (24-38) Sodium Level 144mmol/L (136-145) Potassium Level 2.9mmol/L (3.5-5.1) Chloride Level 105mmol/L (98-107) Carbon Dioxide Level 28mmol/L (21-32) Anion Gap 11 (6-14) Blood Urea Nitrogen 13mg/dL (7-20) Creatinine 1.4mg/dL (0.6-1.0) Estimated GFR (Cockcroft-Gault) 43.9 BUN/Creatinine Ratio 9 (6-20) Glucose Level 92mg/dL (70-99) Calcium Level 11.3mg/dL (8.5-10.1) Total Bilirubin 0.6mg/dL (0.2-1.0) Aspartate Amino Transf (AST/SGOT) 53U/L (15-37) Alanine Aminotransferase (ALT/SGPT) 79U/L (14-59) Alkaline Phosphatase 149U/L (46-116) Troponin I Quantitative < 0.017ng/mL (0.000-0.055) BI-Qvp-K-Type Natriuretic Peptide 114pg/mL (0-449) Total Protein 8.4g/dL (6.4-8.2) Albumin 3.7g/dL (3.4-5.0) Albumin/Globulin Ratio 0.8 (1.0-1.7) Urine Collection Type Unknown Urine Color Yellow Urine Clarity Clear Urine pH 6.5 Urine Specific [place] 1.010 Urine Protein Negativemg/dL (NEG-TRACE) Urine Glucose (UA) Negativemg/dL (NEG) Urine Ketones (Stick) Negativemg/dL (NEG) Urine Blood Negative (NEG) Urine Nitrite Negative (NEG) Urine Bilirubin Negative (NEG) Urine Urobilinogen Dipstick 1.0mg/dL (0.2 mg/dL) Urine Leukocyte Esterase Negative (NEG) Urine RBC Occ/HPF (0-2) Urine WBC Occ/HPF (0-4) Urine Squamous Epithelial Cells Few/LPF Urine Bacteria 0/HPF (0-FEW) Urine Hyaline Casts Few/HPF Urine Mucus Slight/LPF Urine Opiates Screen Neg (NEG) Urine Methadone Screen Neg (NEG) Urine Barbiturates Neg (NEG) Urine Phencyclidine Screen Neg (NEG) Urine Amphetamine/Methamphetamine Neg (NEG) Urine Benzodiazepines Screen Neg (NEG) Urine Cocaine Screen Neg (NEG) Urine Cannabinoids Screen Neg (NEG) Urine Ethyl Alcohol Neg (NEG) Images Images CT head: negative MRI brain: FINDINGS Comparison is made to a CT scan of the head dated 02/17/2017. There is generalized parenchymal atrophy. Patchy, confluent and multiple areas of abnormally increased signal intensity are seen within the periventricular and subcortical white matter both cerebral hemispheres along with the yasmeen on the FLAIR and T2 weighted images consistent with areas of small vessel ischemic disease. Old areas of lacunar infarction are seen involving the left and right thalamus and the yasmeen. These measure 2 millimeters to 5 millimeters in size. Multiple small focal areas decreased signal intensity are seen scattered throughout the brain on the gradient echo images. These measure 1 to 4 millimeters in size. There is no surrounding edema or associated mass effect. These could represent cavernous angiomas or could reflect of the sequela of previous microhemorrhage. No acute parenchymal abnormality is seen. There is no MRI evidence of acute ischemia/infarction. No extra-axial fluid collection is noted. Mild to moderate mucosal thickening is seen scattered throughout the paranasal sinuses. 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 IMPRESSION No acute parenchymal abnormality is seen. Carotids: 1. Extensive calcific plaquing in the common carotid arteries and at both carotid bifurcations. 2. 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 3. Narrowing of the proximal left internal carotid artery in the 50-70% diameter range as described above. 4. CT angiography may be useful for further evaluation, if clinically indicated. Assessment/Plan Assessment/Plan Impression: Although the brain MRI shows no stroke, clinically this is a left hemispheric stroke given the findings in both the right arm in the right leg. I cannot explain the dysdiadochokinesia on a peripheral problems such as some sort of simultaneous cervical and lumbar radiculopathy, neuropathy, or myopathy. Furthermore, she appears to have some left carotid stenosis and with the right- sided symptoms in her body, this would be congruent. Recommendations: I increased for aspirin dose Check CT imaging [facility] modalities Await echocardiogram Thank you for letting me help the patient care. KIRSTEN KUMAR MD Feb 18, 2017 11:54
--- NOTE | 2017-02-18 15:52 | CARD ---
APPROVED REPORT EXAM: Two-dimensional and M-mode echocardiogram with Doppler and color Doppler. Other Information Quality : Good INDICATION CVA Symptoms 2D DIMENSIONS RVDd2.3 (2.9-3.5cm)Left Atrium(2D)2.9 (1.6-4.0cm) IVSd0.9 (0.7-1.1cm)Aortic Root(2D)2.4 (2.0-3.7cm) LVDd4.4 (3.9-5.9cm)LVOT Diameter1.6 (1.8-2.4cm) PWd0.9 (0.7-1.1cm)LVDs2.1 (2.5-4.0cm) FS (%) 30.0 %SV72.9 ml LVEF(%)60.0 (>50%) Aortic Valve AoV Peak Alvino.140.1cm/sAoV VTI25.3cm AO Peak GR.7.9mmHgLVOT Peak Alvino.119.6cm/s LVOT VTI 19.43cmAO Mean GR.4mmHg ANITRA (VMAX)1.65cm2 Mitral Valve MV E Hjofimfd19.7cm/sMV DECEL [id number] MV A Iadivhyw70.3cm/sMV QKZ38yq E/A Ratio0.6MVA (PHT)2.29cm2 TDI E/Lateral E'9.6E/Medial E'16.4 Tricuspid Valve TR P. Frlkrfha568ra/sRAP [id number] TR Peak Gr.40lqZhSCKT09xpGf Pulmonary Vein S1 Pnxrvzae16.2cm/sD2 Tcsunvky16.7cm/s PVa [id number] LEFT VENTRICLE The left ventricle is normal size. There is normal left ventricular wall thickness. The left ventricu lar systolic function is normal and the ejection fraction is within normal range. The Ejection Fracti on is 60-65%. There is normal LV segmental wall motion. Transmitral Doppler flow pattern is Grade I-a bnormal relaxation pattern. RIGHT VENTRICLE The right ventricle is normal size. The right ventricular systolic function is normal. ATRIA The left atrium size is normal. The right atrium size is normal. The interatrial septum is intact wit h no evidence for an atrial septal defect or patent foramen ovale as noted on 2-D or Doppler imaging. AORTIC VALVE The aortic valve is mildly thickened but opens well. Doppler and Color Flow revealed no significant a ortic regurgitation. There is no significant aortic valvular stenosis. MITRAL VALVE The mitral valve is calcified but opens well. Mitral annular calcification is mild. There is no evide nce of mitral valve prolapse. There is no mitral valve stenosis. Doppler and Color-flow revealed trac e to mild mitral regurgitation. TRICUSPID VALVE The tricuspid valve is normal in structure and function. Doppler and Color Flow revealed trace to mil d tricuspid regurgitation. There is moderate pulmonary hypertension. The PA pressure was estimated at 45 mmHg. There is no tricuspid valve stenosis. PULMONIC VALVE Doppler and Color Flow revealed mild pulmonic valvular regurgitation. There is no pulmonic valvular s tenosis. GREAT VESSELS The aortic root is normal in size. The ascending aorta is normal in size. The IVC is normal in size a nd collapses >50% with inspiration. PERICARDIAL EFFUSION There is no evidence of significant pericardial effusion. Critical Notification Critical Value: No <Conclusion> The left ventricular systolic function is normal and the ejection fraction is within normal range. T he Ejection Fraction is 60-65%. There is normal LV segmental wall motion. Doppler and Color Flow revealed trace to mild tricuspid regurgitation. There is moderate pulmonary hy pertension. The PA pressure was estimated at 45 mmHg.
[2017-02-18] MEDS ORDERED: IOHEXOL 350 MG/ML 100ML VIAL. IV ONE (16:00)
[2017-02-18] MEDS ORDERED: CONTRAST GIVEN MC PRN (16:00)
[2017-02-18 18:14] LABS: CREATININE 1.1 mg/dL (0.6-1.0)
[2017-02-19 03:00] VITALS: BP 142/66
[2017-02-19 04:24] LABS: BASO # 0.1 x10^3/uL (0.0-0.2); BASO % 1 % (0-3); EOS % 4 % (0-3); HEMATOCRIT 29.8 % (36.0-47.0); HEMOGLOBIN 9.7 g/dL (12.0-15.5); LYMPH # 1.5 x10^3/uL (1.0-4.8); LYMPH % 27 % (24-48); MEAN CORPUSCULAR HEMOGLOBIN 29 pg (25-35); MEAN CORPUSCULAR HGB CONC 33 g/dL (31-37); MEAN CORPUSCULAR VOLUME 90 fL (79-100); MONO % 10 % (0-9); NEUT % 57 % (31-73); PLATELET COUNT 204 x10^3/uL (140-400); RED BLOOD COUNT 3.32 x10^6/uL (3.50-5.40); RED CELL DISTRIBUTION WIDTH 16.2 % (11.5-14.5); WHITE BLOOD COUNT 5.6 x10^3/uL (4.0-11.0)
[2017-02-19 04:43] LABS: ALBUMIN 2.7 g/dL (3.4-5.0); ALBUMIN/GLOBULIN RATIO 0.7 (1.0-1.7); CALCIUM 10.4 mg/dL (8.5-10.1); CREATININE 1.3 mg/dL (0.6-1.0); GFR 47.8; TOTAL BILIRUBIN 0.6 mg/dL (0.2-1.0); TOTAL PROTEIN 6.5 g/dL (6.4-8.2)
[2017-02-19 04:50] LABS: CHOLESTEROL/HDL RATIO 2.1
[2017-02-19] MEDS: CLONIDINE HCL 0.1 MG TABLET PO SCH ×2 (05:49→14:30)
--- NOTE | 2017-02-19 06:18 | ACF ---
Admission Forms Criteria HYPONATREMIA; HYPERNATREMIA; HYPOKALEMIA; HYPERKALEMIA; HYPOCALCEMIA; HYPERCALCEMIA Clinical Indications for Inpatient Care (Place 'X' for any and all applicable criteria): Ongoing inpatient care may be indicated for ANY ONE of the following [G](1)(2)(3 )(5): [ ]I. Hyponatremia with ANY ONE of the following: [ ]a) Sodium less than 130 mEq/L (mmol/L) (new) (6)(22) [ ]b) Sodium less than 135 mEq/L (mmol/L) with ANY ONE of the following: [ ]i) Severe medical etiology requiring inpatient management (eg, heart failure, hypovolemia) [ ]ii) Altered mental status [ ]iii) Seizures [ ]II. Hypernatremia with ANY ONE of the following: [ ]a) Sodium greater than 155 mEq/L (mmol/L) [ ]b) Sodium greater than 150 mEq/L (mmol/L) with ANY ONE of the following: [ ] i) Altered mental status [ ]ii) Seizures [ ]iii) Severe medical etiology (eg, hypovolemia, diabetes insipidus) [ ]iv) Severe weakness [ ]v) Severe medical etiology (eg, hemolysis, infection, drug overdose) [X]III. Hypokalemia with ANY ONE of the following: [ ]a) Potassium less than 2.5 mEq/L (mmol/L) despite outpatient and emergency treatment [X]b) Potassium less than 3.0 mEq/L (mmol/L) with ANY ONE of the following: [X]i) Weakness [ ]ii) Cardiac abnormality (eg, arrhythmia, conduction disturbance) [ ]iii) Cardiac ischemia [ ]iv) Ileus [ ]v) Ongoing medical cause requiring inpatient management. ( e.g., acute renal wasting, SIADH) [ ]vi) Other severe symptoms [ ] IV. Hyperkalemia with ANY ONE of the following: [ ]a) Potassium greater than 6.5 mEq/L (mmol/L) [ ]b) Potassium greater than 5 mEq/L (mmol/L) with ANY ONE of the following: [ ]i) Severe ECG findings [H] [ ]ii) Acute worsening of renal failure (creatinine greater than 2.5 mg/dL (221 micromoles/L) or significant elevation for age and size) [ ] V. Hypocalcemia with ANY ONE of the following: [ ]a) Calcium less than 7 mg/dL (1.75 mmol/L) despite outpatient and emergency treatment(19) [ ]b) Calcium less than 8 mg/dL (2 mmol/L) with significant symptoms or findings; examples include: [ ]i) Cardiac abnormality (eg, arrhythmia or conduction disturbance) [ ]ii) Altered mental status [ ]iii) Seizures [ ]iv) Breathing difficulty [ ]v) Muscle spasms [ ]. Hypercalcemia with ANY ONE of the following: [ ]a) Calcium greater than 14 mg/dL (3.5 mmol/L) [ ]b) Calcium greater than 12 mg/dL (3 mmol/L) with ANY ONE of the following: [ ]i) Significant dehydration or hypovolemia as indicated by ANY ONE of the following(2): [ ]1. Clinically significant dehydration as indicated by ANY ONE of the following: [ ]A. Acute loss of weight from baseline (5% of body weight in adults, 9% in pediatric patients) [ ]B. Hemodynamic instability [ ]C. Acute renal failure [ ]D. Serum sodium greater than 150 mEq/L (mmol/L) [ ]2) Dehydration that is persistent indicated by ALL of the following: [ ]A. Oral rehydration therapy not tolerated or insufficient to adequately correct dehydration [ ]B. Appropriate intravenous treatment (eg, fluids ) does not readily correct dehydration ie, after 12 to 24 hours of treatment) [ ]ii) Significant symptoms or findings; examples include: [ ]1) Altered mental status [ ]2) Cardiac abnormality (eg, arrhythmia, conduction disturbance) [ ]3) Cardiac abnormality (eg, arrhythmia, conduction disturbance) The original [facility] content created by [facility] has been revised. The portions of the content which have been revised are identified through the use of italic text or in bold, and [facility] has neither reviewed nor approved the modified material. All other unmodified content is copyright [facility] Please see references footnoted in the original [facility] [employer] edition 2016 Admission Criteria Met?: Yes SHANNON HU Feb 19, 2017 06:18
[2017-02-19 07:00] VITALS: BP 152/74
--- NOTE | 2017-02-19 07:51 | RAD ---
CTA of the neck and head with contrast, 02/18/2017: History: Left carotid stenosis. Multidetector CT imaging was performed prior to and following an IV bolus injection of iodinated contrast material. The limited precontrast scans were obtained for subtraction purposes. Multiplanar reconstructions were produced including 3-D volume rendered reconstructions of the major arteries. There is moderate calcific plaquing of the aortic arch and cervicocephalic arteries. No high-grade stenosis is identified at the origins of the cervicocephalic arteries from the aortic arch. There is extensive calcific plaquing in both subclavian arteries The right common carotid artery in the neck is widely patent. There is moderate calcific plaquing at the right carotid bifurcation. The right internal carotid artery is occluded just distal to its origin. It remains occluded up through the cavernous sinus level. There is reconstitution of right anterior cerebral and middle cerebral artery branches via collateral circulation from the anterior and posterior communicating arteries. The right anterior cerebral and middle cerebral arteries and their major branches show no specific abnormality. The left common carotid artery in the neck is widely patent. There is extensive calcific plaquing at the left carotid bifurcation. This is causing approximately 60% diameter narrowing at the origin of the left internal carotid artery. The left internal carotid artery in the upper neck is widely patent. There is moderate calcific plaquing involving its cavernous segment without evidence of high-grade stenosis. The left anterior cerebral and middle cerebral arteries and their major branches are unremarkable. Both vertebral arteries in the neck are widely patent. There is mild calcific plaquing at their origins as well as distally at the skull base. The basilar artery is widely patent. The posterior cerebral arteries and their major branches show no abnormality. There are patent posterior communicating arteries bilaterally, larger on the right. Incidental note is made of emphysematous changes in the lungs. There is mild mucosal thickening in some of the paranasal sinuses. There are moderate multilevel degenerative changes in the cervical spine. IMPRESSION: 1. Moderate generalized atherosclerotic calcific plaquing. 2. 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 3. Reconstitution of the right anterior cerebral and middle cerebral arteries via the anterior and posterior communicating arteries. 4. Extensive calcific plaquing at the left carotid bifurcation with approximately 60% diameter narrowing of the proximal left internal carotid artery.
[2017-02-19] MEDS: OMEGA-3 FATTY ACIDS/FISH OIL 1,000 MG CAPSULE. PO SCH (08:45)
[2017-02-19] MEDS: AMLODIPINE BESYLATE 10 MG TABLET PO SCH (08:53)
[2017-02-19] MEDS: DOXAZOSIN MESYLATE 1 MG TABLET PO SCH (08:53)
[2017-02-19] MEDS: CLOPIDOGREL BISULFATE 75 MG TABLET PO SCH (08:54)
[2017-02-19] MEDS: ALLOPURINOL 100 MG TABLET. PO SCH (08:54)
[2017-02-19] MEDS: AMIODARONE HCL 200 MG TABLET PO SCH (08:56)
[2017-02-19] MEDS ORDERED: ASPIRIN ENTERIC COATED 81 MG TABLET.DR. PO SCH (09:00)
--- NOTE | 2017-02-19 10:57 | PDOC ---
PROGRESS NOTES Assessment Problems Medical Problems: (1) CVA (cerebral vascular accident) Status: Acute (2) Right sided weakness Status: Acute Clinical left hemispheric stroke, negative MRI. Subcritical left carotid stenosis, right carotid occlusion Plan I increased her aspirin dose, I would rather try this then switching to Plavix is the patient indicates she has had trouble with this in the past. Rehabilitation modalities Okay for discharge unless PT/OT don't see the same improvement I did Subjective no complaints, feels much better Objective Vital Signs Date Time Temp Pulse Resp B/P Pulse Ox O2 Delivery O2 Flow Rate FiO2 02/19/17 08:56 75 152/74 02/19/17 07:00 98.4 18 96 Room Air 98.4 Intake and Output 02/19/17 07:00 Intake Total 1990 ml Balance 1990 ml Intake Oral 1990 ml # Voids 4 PHYSICAL EXAM Alert. Oriented to time, place and person. PERRL. EOMI. CN: no focal findings. Muscle tone: normal. Muscle strength: 4/5 DTR: 1+ Plantar reflex: flexor Gait: arthritic, Patient says this is her baseline. Sensory exam: no abnormal findings. No cerebellar signs elicited. Review of Relevant I have reviewed the following items minh (where applicable) has been applied. Labs Laboratory Tests Test 02/17/17 20:44 02/17/17 22:03 02/18/17 11:10 02/18/17 17:35 White Blood Count 5.4x10^3/uL (4.0-11.0) Red Blood Count 3.77x10^6/uL (3.50-5.40) Hemoglobin 11.0g/dL (12.0-15.5) Hematocrit 33.9% (36.0-47.0) Mean Corpuscular Volume 90fL (79-100) Mean Corpuscular Hemoglobin 29pg (25-35) Mean Corpuscular Hemoglobin Concent 33g/dL (31-37) Red Cell Distribution Width 16.3% (11.5-14.5) Platelet Count 222x10^3/uL (140-400) Neutrophils (%) (Auto) 61% (31-73) Lymphocytes (%) (Auto) 26% (24-48) Monocytes (%) (Auto) 9% (0-9) Eosinophils (%) (Auto) 3% (0-3) Basophils (%) (Auto) 1% (0-3) Neutrophils # (Auto) 3.3x10^3uL (1.8-7.7) Lymphocytes # (Auto) 1.4x10^3/uL (1.0-4.8) Monocytes # (Auto) 0.5x10^3/uL (0.0-1.1) Eosinophils # (Auto) 0.2x10^3/uL (0.0-0.7) Basophils # (Auto) 0.1x10^3/uL (0.0-0.2) Prothrombin Time 12.1SEC (11.7-14.0) Prothromb Time International Ratio 1.0 (0.8-1.1) Activated Partial Thromboplast Time 28SEC (24-38) Sodium Level 144mmol/L (136-145) Potassium Level 2.9mmol/L (3.5-5.1) Chloride Level 105mmol/L (98-107) Carbon Dioxide Level 28mmol/L (21-32) Anion Gap 11 (6-14) Blood Urea Nitrogen 13mg/dL (7-20) Creatinine 1.4mg/dL (0.6-1.0) 1.1mg/dL (0.6-1.0) Estimated GFR (Cockcroft-Gault) 43.9 58.0 BUN/Creatinine Ratio 9 (6-20) Glucose Level 92mg/dL (70-99) Calcium Level 11.3mg/dL (8.5-10.1) Total Bilirubin 0.6mg/dL (0.2-1.0) Aspartate Amino Transf (AST/SGOT) 53U/L (15-37) Alanine Aminotransferase (ALT/SGPT) 79U/L (14-59) Alkaline Phosphatase 149U/L (46-116) Troponin I Quantitative < 0.017ng/mL (0.000-0.055) OE-Pco-[id number]-Type Natriuretic Peptide 114pg/mL (0-449) Total Protein 8.4g/dL (6.4-8.2) Albumin 3.7g/dL (3.4-5.0) Albumin/Globulin Ratio 0.8 (1.0-1.7) Urine Collection Type Unknown Urine Color Yellow Urine Clarity Clear Urine pH 6.5 Urine Specific [place] 1.010 Urine Protein Negativemg/dL (NEG-TRACE) Urine Glucose (UA) Negativemg/dL (NEG) Urine Ketones (Stick) Negativemg/dL (NEG) Urine Blood Negative (NEG) Urine Nitrite Negative (NEG) Urine Bilirubin Negative (NEG) Urine Urobilinogen Dipstick 1.0mg/dL (0.2 mg/dL) Urine Leukocyte Esterase Negative (NEG) Urine RBC Occ/HPF (0-2) Urine WBC Occ/HPF (0-4) Urine Squamous Epithelial Cells Few/LPF Urine Bacteria 0/HPF (0-FEW) Urine Hyaline Casts Few/HPF Urine Mucus Slight/LPF Urine Opiates Screen Neg (NEG) Urine Methadone Screen Neg (NEG) Urine Barbiturates Neg (NEG) Urine Phencyclidine Screen Neg (NEG) Urine Amphetamine/Methamphetamine Neg (NEG) Urine Benzodiazepines Screen Neg (NEG) Urine Cocaine Screen Neg (NEG) Urine Cannabinoids Screen Neg (NEG) Urine Ethyl Alcohol Neg (NEG) Magnesium Level 2.0mg/dL (1.8-2.4) Creatine Kinase 90U/L (26-192) Test 02/19/17 04:00 White Blood Count 5.6x10^3/uL (4.0-11.0) Red Blood Count 3.32x10^6/uL (3.50-5.40) Hemoglobin 9.7g/dL (12.0-15.5) Hematocrit 29.8% (36.0-47.0) Mean Corpuscular Volume 90fL (79-100) Mean Corpuscular Hemoglobin 29pg (25-35) Mean Corpuscular Hemoglobin Concent 33g/dL (31-37) Red Cell Distribution Width 16.2% (11.5-14.5) Platelet Count 204x10^3/uL (140-400) Neutrophils (%) (Auto) 57% (31-73) Lymphocytes (%) (Auto) 27% (24-48) Monocytes (%) (Auto) 10% (0-9) Eosinophils (%) (Auto) 4% (0-3) Basophils (%) (Auto) 1% (0-3) Neutrophils # (Auto) 3.2x10^3uL (1.8-7.7) Lymphocytes # (Auto) 1.5x10^3/uL (1.0-4.8) Monocytes # (Auto) 0.6x10^3/uL (0.0-1.1) Eosinophils # (Auto) 0.2x10^3/uL (0.0-0.7) Basophils # (Auto) 0.1x10^3/uL (0.0-0.2) Sodium Level 141mmol/L (136-145) Potassium Level 4.0mmol/L (3.5-5.1) Chloride Level 108mmol/L (98-107) Carbon Dioxide Level 26mmol/L (21-32) Anion Gap 7 (6-14) Blood Urea Nitrogen 13mg/dL (7-20) Creatinine 1.3mg/dL (0.6-1.0) Estimated GFR (Cockcroft-Gault) 47.8 BUN/Creatinine Ratio 10 (6-20) Glucose Level 92mg/dL (70-99) Calcium Level 10.4mg/dL (8.5-10.1) Ionized Calcium 1.52mmol/L (1.13-1.32) Total Bilirubin 0.6mg/dL (0.2-1.0) Aspartate Amino Transf (AST/SGOT) 42U/L (15-37) Alanine Aminotransferase (ALT/SGPT) 62U/L (14-59) Alkaline Phosphatase 112U/L (46-116) Total Protein 6.5g/dL (6.4-8.2) Albumin 2.7g/dL (3.4-5.0) Albumin/Globulin Ratio 0.7 (1.0-1.7) Triglycerides Level 43mg/dL (0-150) Cholesterol Level 177mg/dL (0-200) LDL Cholesterol, Calculated 83mg/dL (0-100) VLDL Cholesterol, Calculated 9mg/dL (0-40) HDL Cholesterol 85mg/dL (40-60) Cholesterol/HDL Ratio 2.1 Laboratory Tests Test 02/18/17 11:10 02/18/17 17:35 02/19/17 04:00 Magnesium Level 2.0mg/dL (1.8-2.4) Creatine Kinase 90U/L (26-192) Creatinine 1.1mg/dL (0.6-1.0) 1.3mg/dL (0.6-1.0) Estimated GFR (Cockcroft-Gault) 58.0 47.8 White Blood Count 5.6x10^3/uL (4.0-11.0) Red Blood Count 3.32x10^6/uL (3.50-5.40) Hemoglobin 9.7g/dL (12.0-15.5) Hematocrit 29.8% (36.0-47.0) Mean Corpuscular Volume 90fL (79-100) Mean Corpuscular Hemoglobin 29pg (25-35) Mean Corpuscular Hemoglobin Concent 33g/dL (31-37) Red Cell Distribution Width 16.2% (11.5-14.5) Platelet Count 204x10^3/uL (140-400) Neutrophils (%) (Auto) 57% (31-73) Lymphocytes (%) (Auto) 27% (24-48) Monocytes (%) (Auto) 10% (0-9) Eosinophils (%) (Auto) 4% (0-3) Basophils (%) (Auto) 1% (0-3) Neutrophils # (Auto) 3.2x10^3uL (1.8-7.7) Lymphocytes # (Auto) 1.5x10^3/uL (1.0-4.8) Monocytes # (Auto) 0.6x10^3/uL (0.0-1.1) Eosinophils # (Auto) 0.2x10^3/uL (0.0-0.7) Basophils # (Auto) 0.1x10^3/uL (0.0-0.2) Sodium Level 141mmol/L (136-145) Potassium Level 4.0mmol/L (3.5-5.1) Chloride Level 108mmol/L (98-107) Carbon Dioxide Level 26mmol/L (21-32) Anion Gap 7 (6-14) Blood Urea Nitrogen 13mg/dL (7-20) BUN/Creatinine Ratio 10 (6-20) Glucose Level 92mg/dL (70-99) Calcium Level 10.4mg/dL (8.5-10.1) Ionized Calcium 1.52mmol/L (1.13-1.32) Total Bilirubin 0.6mg/dL (0.2-1.0) Aspartate Amino Transf (AST/SGOT) 42U/L (15-37) Alanine Aminotransferase (ALT/SGPT) 62U/L (14-59) Alkaline Phosphatase 112U/L (46-116) Total Protein 6.5g/dL (6.4-8.2) Albumin 2.7g/dL (3.4-5.0) Albumin/Globulin Ratio 0.7 (1.0-1.7) Triglycerides Level 43mg/dL (0-150) Cholesterol Level 177mg/dL (0-200) LDL Cholesterol, Calculated 83mg/dL (0-100) VLDL Cholesterol, Calculated 9mg/dL (0-40) HDL Cholesterol 85mg/dL (40-60) Cholesterol/HDL Ratio 2.1 Medications Current Medications Aspirin (Children'S Aspirin) 324 mg 1X ONCE PO Last administered on 02/17/17 23:25; Start 02/17/17 at 23:30; Stop 02/17/17 at 23:31; Status DC Potassium Chloride 40 meq 40 meq 1X ONCE PO Last administered on 02/17/17 23: 27; Start 02/17/17 at 23:30; Stop 02/17/17 at 23:31; Status DC Potassium Chloride/Sodium Chloride (KCl 40 Meq-NS 1,000 ml Iv Soln) 1,000 ml @ 75 mls/hr 1X ONCE IV Last administered on 02/17/17 23:30; Start 02/17/17 at 23:30; Stop 02/18/17 at 12:49; Status DC Ondansetron HCl (Zofran) 4 mg PRN Q8HRS PRN IV NAUSEA/VOMITING; Start 02/18/17 at 01:15; Stop 02/19/17 at 01:14; Status DC Acetaminophen (Tylenol) 650 mg PRN Q4HRS PRN PO FEVER; Start 02/18/17 at 01:15 ; Stop 02/19/17 at 01:14; Status DC Clopidogrel Bisulfate (Plavix) 75 mg DAILYWBKFT PO Last administered on 08:54; Start 02/18/17 at 08:00 Allopurinol (Zyloprim) 100 mg DAILY PO Last administered on 02/19/17 08:54; Start 02/18/17 at 09:00 Amiodarone HCl (Cordarone) 200 mg DAILY PO Last administered on 02/19/17 08:56 ; Start 02/18/17 at 09:00 Amlodipine Besylate (Norvasc) 10 mg DAILY PO Last administered on 02/19/17 08: 53; Start 02/18/17 at 09:00 Aspirin (Ecotrin) 81 mg DAILY PO Last administered on 02/18/17 10:31; Start at 09:00; Stop 02/18/17 at 11:56; Status DC Clonidine HCl (Catapres) 0.1 mg Q8HRS PO Last administered on 02/19/17 05:49; Start 02/18/17 at 09:00 Doxazosin Mesylate (Cardura) 2 mg DAILY PO Last administered on 02/19/17 08:53 ; Start 02/18/17 at 09:00 Fish Oil (Fish Oil) 1,000 mg DAILY PO Last administered on 02/19/17 08:45; Start 02/18/17 at 09:00 Albuterol Sulfate (Ventolin Neb Soln) 2.5 mg PRN QID PRN NEB SHORTNESS OF BREATH; Start 02/18/17 at 09:15 Aspirin (Ecotrin) 325 mg DAILY PO ; Start 02/19/17 at 09:00; Stop 02/19/17 at 09 :54; Status DC Iohexol (Omnipaque 350 Mg/ml) 60 ml 1X ONCE IV Last administered on 02/18/17 16:18; Start 02/18/17 at 16:00; Stop 02/18/17 at 16:01; Status DC Info (Do NOT chart on this entry -- for MONITORING) 1 each PRN DAILY PRN MC SEE COMMENTS; Start 02/18/17 at 16:00; Stop 02/20/17 at 15:59 Aspirin (Ecotrin) 325 mg DAILYWBKFT PO ; Start 02/20/17 at 08:00 Active Scripts Active Reported Fish Oil ([place]-3 Fatty Acids) 300 Mg Capsule 300 Mg PO DAILY Amlodipine Besylate 10 Mg Tablet 10 Mg PO DAILY Doxazosin Mesylate 2 Mg Tablet 1 Tab PO DAILY Clonidine Hcl 0.1 Mg Tablet 0.1 Mg PO Q8HRS Aspir 81 (Aspirin) 81 Mg Tablet.dr 1 Tab PO DAILY Amiodarone Hcl 200 Mg Tablet 200 Mg PO DAILY Allopurinol 100 Mg Tablet 1 Tab PO DAILY Vitals/I & O Vital Sign - Last 24 Hours 02/18/17 02/18/17 02/18/17 02/18/17 11:00 12:07 14:14 15:00 Temp 98.0 98.2 98.0 98.2 Pulse 88 80 69 Resp 18 17 B/P 164/80 147/57 146/67 Pulse Ox 96 98 100 O2 Delivery Room Air Room Air Room Air 02/18/17 02/18/17 02/18/17 02/18/17 19:00 20:00 20:55 23:00 Temp 98.7 98.6 98.7 98.6 Pulse 73 73 76 Resp 18 B/P 139/58 139/58 154/71 Pulse Ox 100 100 O2 Delivery Room Air Room Air Room Air 02/19/17 02/19/17 02/19/17 02/19/17 03:00 05:49 07:00 08:53 Temp 98.6 98.4 98.6 98.4 Pulse 65 67 75 75 Resp 16 18 B/P 142/66 146/69 152/74 152/74 Pulse Ox 95 96 O2 Delivery Room Air Room Air 02/19/17 02/19/17 08:53 08:56 Pulse 75 75 B/P 152/74 152/74 Intake and Output 02/18/17 02/18/17 02/19/17 15:00 23:00 07:00 Intake Total 490 ml 900 ml 600 ml Balance 490 ml 900 ml 600 ml Images CTA: 1. Moderate generalized atherosclerotic calcific plaquing. 2. 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 3. Reconstitution of the right anterior cerebral and middle cerebral arteries via the anterior and posterior communicating arteries. 4. Extensive calcific plaquing at the left carotid bifurcation with approximately 60% diameter narrowing of the proximal left internal carotid artery. Echo: LEFT VENTRICLE The left ventricle is normal size. There is normal left ventricular wall thickness. The left ventricular systolic function is normal and the ejection fraction is within normal range. The Ejection Fraction is 60-65%. There is normal LV segmental wall motion. Transmitral Doppler flow pattern is Grade I- abnormal relaxation pattern. RIGHT VENTRICLE The right ventricle is normal size. The right ventricular systolic function is normal. ATRIA The left atrium size is normal. The right atrium size is normal. The interatrial septum is intact with no evidence for an atrial septal defect or patent foramen ovale as noted on 2-D or Doppler imaging. AORTIC VALVE The aortic valve is mildly thickened but opens well. Doppler and Color Flow revealed no significant aortic regurgitation. There is no significant aortic valvular stenosis. MITRAL VALVE The mitral valve is calcified but opens well. Mitral annular calcification is mild. There is no evidence of mitral valve prolapse. There is no mitral valve stenosis. Doppler and Color-flow revealed trace to mild mitral regurgitation. TRICUSPID VALVE The tricuspid valve is normal in structure and function. Doppler and Color Flow revealed trace to mild tricuspid regurgitation. There is moderate pulmonary hypertension. The PA pressure was estimated at 45 mmHg. There is no tricuspid valve stenosis. PULMONIC VALVE Doppler and Color Flow revealed mild pulmonic valvular regurgitation. There is no pulmonic valvular stenosis. GREAT VESSELS The aortic root is normal in size. The ascending aorta is normal in size. The IVC is normal in size and collapses >50% with inspiration. PERICARDIAL EFFUSION There is no evidence of significant pericardial effusion. Critical Notification Critical Value: No <Conclusion> The left ventricular systolic function is normal and the ejection fraction is within normal range. The Ejection Fraction is 60-65%. There is normal LV segmental wall motion. Doppler and Color Flow revealed trace to mild tricuspid regurgitation. There is moderate pulmonary hypertension. The PA pressure was estimated at 45 mmHg. KIRSTEN KUMAR MD Feb 19, 2017 10:56
[2017-02-19 11:00] VITALS: BP 149/63
[2017-02-19] MEDS ORDERED: ASPIRIN ENTERIC COATED 325 MG TABLET.DR. PO SCH (11:00)
--- NOTE | 2017-02-19 13:02 | PDOC3 ---
Discharge Summary Visit Information Date of Admission: Feb 18, 2017 Date of Discharge: Feb 19, 2017 Admitting Diagnosis: right leg weakness Final Diagnosis Clinical left hemispheric stroke, negative MRI. Subcritical left carotid stenosis, right carotid occlusion Problems Medical Problems: (1) CVA (cerebral vascular accident) Status: Acute (2) Right sided weakness Status: Acute Brief Hospital Course Allergies Allergies Coded Allergies Type Severity Reaction Last Updated Verified No Known Drug Allergies 11/12/14 No Vital Signs Vital Signs Date Time Temp Pulse Resp B/P Pulse Ox O2 Delivery O2 Flow Rate FiO2 02/19/17 08:56 75 152/74 02/19/17 07:00 98.4 18 96 Room Air 98.4 Lab Results Laboratory Tests Test 02/17/17 20:44 02/17/17 22:03 02/18/17 11:10 02/18/17 17:35 White Blood Count 5.4x10^3/uL (4.0-11.0) Red Blood Count 3.77x10^6/uL (3.50-5.40) Hemoglobin 11.0g/dL (12.0-15.5) Hematocrit 33.9% (36.0-47.0) Mean Corpuscular Volume 90fL (79-100) Mean Corpuscular Hemoglobin 29pg (25-35) Mean Corpuscular Hemoglobin Concent 33g/dL (31-37) Red Cell Distribution Width 16.3% (11.5-14.5) Platelet Count 222x10^3/uL (140-400) Neutrophils (%) (Auto) 61% (31-73) Lymphocytes (%) (Auto) 26% (24-48) Monocytes (%) (Auto) 9% (0-9) Eosinophils (%) (Auto) 3% (0-3) Basophils (%) (Auto) 1% (0-3) Neutrophils # (Auto) 3.3x10^3uL (1.8-7.7) Lymphocytes # (Auto) 1.4x10^3/uL (1.0-4.8) Monocytes # (Auto) 0.5x10^3/uL (0.0-1.1) Eosinophils # (Auto) 0.2x10^3/uL (0.0-0.7) Basophils # (Auto) 0.1x10^3/uL (0.0-0.2) Prothrombin Time 12.1SEC (11.7-14.0) Prothromb Time International Ratio 1.0 (0.8-1.1) Activated Partial Thromboplast Time 28SEC (24-38) Sodium Level 144mmol/L (136-145) Potassium Level 2.9mmol/L (3.5-5.1) Chloride Level 105mmol/L (98-107) Carbon Dioxide Level 28mmol/L (21-32) Anion Gap 11 (6-14) Blood Urea Nitrogen 13mg/dL (7-20) Creatinine 1.4mg/dL (0.6-1.0) 1.1mg/dL (0.6-1.0) Estimated GFR (Cockcroft-Gault) 43.9 58.0 BUN/Creatinine Ratio 9 (6-20) Glucose Level 92mg/dL (70-99) Calcium Level 11.3mg/dL (8.5-10.1) Total Bilirubin 0.6mg/dL (0.2-1.0) Aspartate Amino Transf (AST/SGOT) 53U/L (15-37) Alanine Aminotransferase (ALT/SGPT) 79U/L (14-59) Alkaline Phosphatase 149U/L (46-116) Troponin I Quantitative < 0.017ng/mL (0.000-0.055) [id number]-Type Natriuretic Peptide 114pg/mL (0-449) Total Protein 8.4g/dL (6.4-8.2) Albumin 3.7g/dL (3.4-5.0) Albumin/Globulin Ratio 0.8 (1.0-1.7) Urine Collection Type Unknown Urine Color Yellow Urine Clarity Clear Urine pH 6.5 Urine Specific [place] 1.010 Urine Protein Negativemg/dL (NEG-TRACE) Urine Glucose (UA) Negativemg/dL (NEG) Urine Ketones (Stick) Negativemg/dL (NEG) Urine Blood Negative (NEG) Urine Nitrite Negative (NEG) Urine Bilirubin Negative (NEG) Urine Urobilinogen Dipstick 1.0mg/dL (0.2 mg/dL) Urine Leukocyte Esterase Negative (NEG) Urine RBC Occ/HPF (0-2) Urine WBC Occ/HPF (0-4) Urine Squamous Epithelial Cells Few/LPF Urine Bacteria 0/HPF (0-FEW) Urine Hyaline Casts Few/HPF Urine Mucus Slight/LPF Urine Opiates Screen Neg (NEG) Urine Methadone Screen Neg (NEG) Urine Barbiturates Neg (NEG) Urine Phencyclidine Screen Neg (NEG) Urine Amphetamine/Methamphetamine Neg (NEG) Urine Benzodiazepines Screen Neg (NEG) Urine Cocaine Screen Neg (NEG) Urine Cannabinoids Screen Neg (NEG) Urine Ethyl Alcohol Neg (NEG) Magnesium Level 2.0mg/dL (1.8-2.4) Creatine Kinase 90U/L (26-192) Test 02/19/17 04:00 White Blood Count 5.6x10^3/uL (4.0-11.0) Red Blood Count 3.32x10^6/uL (3.50-5.40) Hemoglobin 9.7g/dL (12.0-15.5) Hematocrit 29.8% (36.0-47.0) Mean Corpuscular Volume 90fL (79-100) Mean Corpuscular Hemoglobin 29pg (25-35) Mean Corpuscular Hemoglobin Concent 33g/dL (31-37) Red Cell Distribution Width 16.2% (11.5-14.5) Platelet Count 204x10^3/uL (140-400) Neutrophils (%) (Auto) 57% (31-73) Lymphocytes (%) (Auto) 27% (24-48) Monocytes (%) (Auto) 10% (0-9) Eosinophils (%) (Auto) 4% (0-3) Basophils (%) (Auto) 1% (0-3) Neutrophils # (Auto) 3.2x10^3uL (1.8-7.7) Lymphocytes # (Auto) 1.5x10^3/uL (1.0-4.8) Monocytes # (Auto) 0.6x10^3/uL (0.0-1.1) Eosinophils # (Auto) 0.2x10^3/uL (0.0-0.7) Basophils # (Auto) 0.1x10^3/uL (0.0-0.2) Sodium Level 141mmol/L (136-145) Potassium Level 4.0mmol/L (3.5-5.1) Chloride Level 108mmol/L (98-107) Carbon Dioxide Level 26mmol/L (21-32) Anion Gap 7 (6-14) Blood Urea Nitrogen 13mg/dL (7-20) Creatinine 1.3mg/dL (0.6-1.0) Estimated GFR (Cockcroft-Gault) 47.8 BUN/Creatinine Ratio 10 (6-20) Glucose Level 92mg/dL (70-99) Calcium Level 10.4mg/dL (8.5-10.1) Ionized Calcium 1.52mmol/L (1.13-1.32) Total Bilirubin 0.6mg/dL (0.2-1.0) Aspartate Amino Transf (AST/SGOT) 42U/L (15-37) Alanine Aminotransferase (ALT/SGPT) 62U/L (14-59) Alkaline Phosphatase 112U/L (46-116) Total Protein 6.5g/dL (6.4-8.2) Albumin 2.7g/dL (3.4-5.0) Albumin/Globulin Ratio 0.7 (1.0-1.7) Triglycerides Level 43mg/dL (0-150) Cholesterol Level 177mg/dL (0-200) LDL Cholesterol, Calculated 83mg/dL (0-100) VLDL Cholesterol, Calculated 9mg/dL (0-40) HDL Cholesterol 85mg/dL (40-60) Cholesterol/HDL Ratio 2.1 Laboratory Tests Test 02/18/17 17:35 02/19/17 04:00 Creatinine 1.1mg/dL (0.6-1.0) 1.3mg/dL (0.6-1.0) Estimated GFR (Cockcroft-Gault) 58.0 47.8 White Blood Count 5.6x10^3/uL (4.0-11.0) Red Blood Count 3.32x10^6/uL (3.50-5.40) Hemoglobin 9.7g/dL (12.0-15.5) Hematocrit 29.8% (36.0-47.0) Mean Corpuscular Volume 90fL (79-100) Mean Corpuscular Hemoglobin 29pg (25-35) Mean Corpuscular Hemoglobin Concent 33g/dL (31-37) Red Cell Distribution Width 16.2% (11.5-14.5) Platelet Count 204x10^3/uL (140-400) Neutrophils (%) (Auto) 57% (31-73) Lymphocytes (%) (Auto) 27% (24-48) Monocytes (%) (Auto) 10% (0-9) Eosinophils (%) (Auto) 4% (0-3) Basophils (%) (Auto) 1% (0-3) Neutrophils # (Auto) 3.2x10^3uL (1.8-7.7) Lymphocytes # (Auto) 1.5x10^3/uL (1.0-4.8) Monocytes # (Auto) 0.6x10^3/uL (0.0-1.1) Eosinophils # (Auto) 0.2x10^3/uL (0.0-0.7) Basophils # (Auto) 0.1x10^3/uL (0.0-0.2) Sodium Level 141mmol/L (136-145) Potassium Level 4.0mmol/L (3.5-5.1) Chloride Level 108mmol/L (98-107) Carbon Dioxide Level 26mmol/L (21-32) Anion Gap 7 (6-14) Blood Urea Nitrogen 13mg/dL (7-20) BUN/Creatinine Ratio 10 (6-20) Glucose Level 92mg/dL (70-99) Calcium Level 10.4mg/dL (8.5-10.1) Ionized Calcium 1.52mmol/L (1.13-1.32) Total Bilirubin 0.6mg/dL (0.2-1.0) Aspartate Amino Transf (AST/SGOT) 42U/L (15-37) Alanine Aminotransferase (ALT/SGPT) 62U/L (14-59) Alkaline Phosphatase 112U/L (46-116) Total Protein 6.5g/dL (6.4-8.2) Albumin 2.7g/dL (3.4-5.0) Albumin/Globulin Ratio 0.7 (1.0-1.7) Triglycerides Level 43mg/dL (0-150) Cholesterol Level 177mg/dL (0-200) LDL Cholesterol, Calculated 83mg/dL (0-100) VLDL Cholesterol, Calculated 9mg/dL (0-40) HDL Cholesterol 85mg/dL (40-60) Cholesterol/HDL Ratio 2.1 Brief Hospital Course Ms. Rome is a 77 old female, presented with right foot weakness, had been present for over a day, TPA not indicated, symptoms much better at 24 hours, Neuro eval, increased her aspirin dose, deemed better then switching to Plavix as the patient indicates she has had trouble with this in the past. Rehabilitation modalities PT/OT - cont home health hypercalcemia, ionized 1.5 PTH and vit D levels ordered, PCP to follow up , pt declined extending her hospital stay to workup. carotid IMPRESSION: 1. Extensive calcific plaquing in the common carotid arteries and at both carotid bifurcations. 2. 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 3. Narrowing of the proximal left internal carotid artery in the 50-70% diameter range as described above. 4. CT angiography may be useful for further evaluation, if clinically indicated. Discharge Information Condition at Discharge: Improved Follow Up: Weeks Disposition/Orders: D/C to Home w/ HH Scheduled Allopurinol (Allopurinol) 1 TAB PO DAILY (Reported) Amiodarone Hcl (Amiodarone Hcl) 200 MG PO DAILY (Reported) Amlodipine Besylate (Amlodipine Besylate) 10 MG PO DAILY (Reported) Aspirin (Aspir 81) 1 TAB PO DAILY (Reported) Clonidine Hcl (Clonidine Hcl) 0.1 MG PO Q8HRS (Reported) Doxazosin Mesylate (Doxazosin Mesylate) 1 TAB PO DAILY (Reported) [place]-3 Fatty Acids (Fish Oil) 300 MG PO DAILY (Reported) Discontinued Medications Amlodipine Besylate (Amlodipine Besylate) 1 TAB PO BID (Reported) Clonidine Hcl (Clonidine Hcl) 0.1 MG PO BID (Reported) Patient Instructions Patient Instructions time > 30minutes MILAGRO FLORES MD Feb 19, 2017 13:02
[2017-02-19] MEDS ORDERED: ASPI325T11 PO (14:28)
[2017-02-19 15:00] VITALS: BP 138/74
[2017-02-20 03:15] LABS: PTH INTACT 53 pg/mL (15-65)
[2017-02-20 15:27] LABS: ALPHA 1 0.2 g/dL (0.0-0.4); ALPHA 2 0.7 g/dL (0.4-1.0); BETA 0.8 g/dL (0.7-1.3); GAMMA 1.5 g/dL (0.4-1.8); M-SPIKE 0.6 g/dL (Not Observed); PROTEIN TOTAL 6.5 g/dL (6.0-8.5)
== END 2017-02-19 16:43 | disposition home health service (06) | DRG 65 ==
LOC: ER 20:01 → ED HOLD 23:57 → 5 NORTH 02-18 01:22
PROVIDERS: ADMIT Internal Medicine Hematology & Oncology; ATTEND Internal Medicine Hematology & Oncology
DX: I63.9 Cerebral infarction, unspecified (principal); G81.90 Hemiplegia, unspecified affecting unspecified side; I50.32 Chronic diastolic (congestive) heart failure; I13.0 Hypertensive heart and chronic kidney disease with heart failure and stage 1 through stage 4 chronic kidney disease, or unspecified chronic kidney disease; N18.3 Chronic kidney disease, stage 3 (moderate); E83.52 Hypercalcemia; E87.6 Hypokalemia; I25.10 Atherosclerotic heart disease of native coronary artery without angina pectoris; M54.5 Low back pain; I48.91 Unspecified atrial fibrillation; I65.23 Occlusion and stenosis of bilateral carotid arteries; Z82.49 Family history of ischemic heart disease and other diseases of the circulatory system; Z90.710 Acquired absence of both cervix and uterus; Z87.891 Personal history of nicotine dependence; Z79.82 Long term (current) use of aspirin
CPT/HCPCS: 36415; 70450; 70496; 70498; 70551; 71010; 73610; 73630; 80053; 80061; 81001; 82306; 82310; 82550; 82565; 83735; 83880; 83970; 84165; 84484; 85027; 85610; 85730; 93005; 93306; 93880; 94250; 94760; 96374; G0481; J3480; Q9967; 92610; 97116; 99285-25

== ENCOUNTER 2017-02-24 06:48 | Emergency (ER) | payer OTHER ==
[~2017-02-24] VITALS: Ht 142.2 cm; Wt 43.1 kg
[~2017-02-24 06:48] MED LIST changes: +AMLO10TA2 PO; +ASPI-482 PO; +ASPI325T11 PO; +DOXA2TAB2 PO; +OMEG300C PO
--- NOTE | 2017-02-24 07:13 | PHYS DOC ---
Past Medical History Past Medical History: Hypertension, Other Past Surgical History: Hysterectomy Alcohol Use: Occasionally Drug Use: None Adult General Chief Complaint Chief Complaint: LOWER EXT PAIN HPI HPI 77-year-old female presenting to the emergency department with right de leon pain. This been present for approximately greater than one week. It is worse with walking. Improved with rest. She had x-rays of the ankle and foot obtained one week ago which were negative . She denies any trauma. Her pain is throbbing, nonradiating, moderate. She denies any numbness weakness or tingling. Review of systems is negative for chest pain shortness of breath abdominal pain numbness weakness or tingling. All other review of systems is negative unless otherwise noted in history of present illness. Review of Systems Review of Systems SEE ABOVE. Allergies Allergies Allergies Coded Allergies Type Severity Reaction Last Updated Verified No Known Drug Allergies 11/12/14 No Physical Exam Physical Exam Constitutional: Well developed, well nourished, no acute distress, non-toxic appearance. [] HENT: Normocephalic, atraumatic, bilateral external ears normal, oropharynx moist, no oral exudates, nose normal. Eyes: PERRLA, EOMI, conjunctiva normal, no discharge. [] Neck: Normal range of motion, no tenderness, supple, no stridor. Cardiovascular:Heart rate regular rhythm, no murmur [] Lungs & Thorax: Bilateral breath sounds clear to auscultation [] Abdomen: Bowel sounds normal, soft, no tenderness, no masses, no pulsatile masses. Skin: Warm, dry, no erythema, no rash. [] Back: No tenderness, no CVA tenderness. Extremities: The patient's right lower extremity is warm and well perfused with 2 second cap refill. Normal motor and sensory function distally. She has extremely dry skin on the anterior portion of her right de leon where her pain is. It is not warm to touch. No erythema present. Not swollen. No ecchymosis lacerations or abrasions present. Neurologic: Alert and oriented X 3, normal motor function, normal sensory function, no focal deficits noted. [] Psychologic: Affect normal, judgement normal, mood normal. Current Patient Data Vital Signs Vital Signs Date Time Temp Pulse Resp B/P Pulse Ox O2 Delivery O2 Flow Rate FiO2 02/24/17 07:01 97.8 107 16 100 Room Air 97.8 EKG EKG [] Radiology/Procedures Radiology/Procedures [] Course & Med Decision Making Course & Med Decision Making Pertinent Labs and Imaging studies reviewed. (See chart for details) [] 77-year-old female presenting to the emergency department with right de leon pain. X-rays were obtained during previous examination for the same pain which were negative. On examination the patient had a neurovascularly intact foot. She did have extremely dry skin on the anterior portion of her de leon. No evidence of trauma to the extremity. I recommended using topical lotion for her dry skin. Otherwise no evidence of acute injury or pathology. I then referred the patient back to her primary care physician on Saturday for further evaluation workup and care. Dragon Disclaimer Dragon Disclaimer This electronic medical record was generated, in whole or in part, using a voice recognition dictation system. Departure Departure Impression: Primary Impression: Dry skin Additional Impression: Leg pain, right Disposition: HOME, SELF-CARE Condition: STABLE Referrals: ASHLEE CARRION MD (PCP) Additional Instructions: Thank you for allowing us to participate in your care today. Use lotion on your dry skin. Follow-up with your doctor on Saturday. Followup with your primary care physician in 3 days if your symptoms do not improve. If you do not have a primary care provider you can ask for a list of our primary care providers. Return to the emergency department you have any new or concerning findings. This should be evaluated by the primary care physician and any necessary consulting services for continued management within a few days after discharge. Return to emergency room if you have any new or concerning symptoms including but not limited to fever, chills, nausea, vomiting, intractable pain, any new rashes, chest pain, shortness of air, uncontrolled bleeding, difficulty breathing, and/or vision loss. Problem Qualifiers BHARGAVI MORE MD Feb 24, 2017 07:13
[2017-02-24 07:22] VITALS: BP 158/85
== END 2017-02-24 07:25 | disposition home or self-care (01) ==
LOC: ER 06:48
DX: M79.604 Pain in right leg (principal); I10 Essential (primary) hypertension; Z90.710 Acquired absence of both cervix and uterus
CPT/HCPCS: 99281

== ENCOUNTER 2017-02-28 08:39 | Emergency (ER) | payer OTHER ==
[~2017-02-28] VITALS: Ht 147.3 cm; Wt 44.0 kg
--- NOTE | 2017-02-28 09:14 | RAD ---
Right shoulder, 3 views, 02/28/2017: History: Fall, shoulder pain The bony structures are demineralized. There is an impacted fracture of the right humeral neck. There is slight anterior displacement of the distal fracture fragment. There is subacromial spurring with degenerative change at the acromioclavicular and glenohumeral articulations. Scattered arterial calcifications are present. IMPRESSION: 1. Demineralization. 2. Acute impacted right humeral neck fracture.
[2017-02-28] MEDS ORDERED: HYDROCODONE/APAP 5/325MG TABLET. PO ONE (09:45)
[2017-02-28 09:58] LABS: BASO % 1 % (0-3); EOS % 0 % (0-3); HEMATOCRIT 31.1 % (36.0-47.0); HEMOGLOBIN 10.4 g/dL (12.0-15.5); LYMPH # 0.5 x10^3/uL (1.0-4.8); LYMPH % 7 % (24-48); MEAN CORPUSCULAR HEMOGLOBIN 30 pg (25-35); MEAN CORPUSCULAR HGB CONC 33 g/dL (31-37); MEAN CORPUSCULAR VOLUME 89 fL (79-100); MONO % 11 % (0-9); NEUT % 81 % (31-73); PLATELET COUNT 203 x10^3/uL (140-400); RED BLOOD COUNT 3.51 x10^6/uL (3.50-5.40); RED CELL DISTRIBUTION WIDTH 16.6 % (11.5-14.5); WHITE BLOOD COUNT 7.1 x10^3/uL (4.0-11.0)
[2017-02-28 10:07] LABS: PROTHROMBIN TIME PATIENT 12.3 SEC (11.7-14.0)
[2017-02-28 10:09] LABS: CALCIUM 10.8 mg/dL (8.5-10.1); CREATININE 1.2 mg/dL (0.6-1.0); GFR 52.4; POTASSIUM 3.7 mmol/L (3.5-5.1)
--- NOTE | 2017-02-28 10:14 | RAD ---
CT of the head without contrast, 02/28/2017: History: Fall, dizziness Comparison is made to a study from 02/17/2017. There are unchanged extensive patchy lucencies in the deep white matter bilaterally compatible with chronic ischemic change. There is mild cerebral atrophy. The ventricles are mildly enlarged on a compensatory basis. There is no shift of the midline structures. There is no evidence of acute intracranial hemorrhage or mass effect. There is extensive hyperostosis interna. A small amount of fluid is noted in the right sphenoid sinus. IMPRESSION: 1. Chronic findings as described above. 2. No acute intracranial abnormality is detected. PQRS Compliance Statement: One or more of the following individualized dose reduction techniques were utilized for this examination: 1. Automated exposure control 2. Adjustment of the mA and/or kV according to patient size 3. Use of iterative reconstruction technique
--- NOTE | 2017-02-28 10:40 | EKG ---
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
[2017-02-28] MEDS ORDERED: HYDR-971 PO (11:05)
--- NOTE | 2017-02-28 11:06 | PHYS DOC ---
Past Medical History Past Medical History: High Cholesterol, Hypertension, Other Past Surgical History: Hysterectomy Alcohol Use: Occasionally Drug Use: None Adult General Chief Complaint Chief Complaint: SHOULDER INJURY HPI HPI Patient is a 77 year old female who presents with right shoulder injury. Patient states last evening around 1999 she was watching TV, stood suddenly to go to the restroom, believes she briefly lost consciousness & fell to the ground. She experienced brief dizziness before syncope, denies chest pain, palpitations, shortness of breath. Family denied seizure activity or postictal state. She was able to ambulate in the home after the incident occurred. Today her dominant right shoulder continues to cause pain. Denies any lightheadedness today. Denies any other injuries. Unsure whether she hit her head. Denies use of blood thinners. Does not regularly fall. Lives at home. Review of Systems Review of Systems Constitutional: Denies fever or chills Eyes: Denies change in visual acuity HENT: Denies nasal congestion or sore throat Respiratory: Denies cough or shortness of breath Cardiovascular: Denies chest pain or edema GI: Denies abdominal pain, nausea, vomiting, or diarrhea : Denies dysuria or hematuria Musculoskeletal: Denies back pain, reports right shoulder pain Integument: Denies rash or skin lesions Neurologic: Reports syncope. Denies headache, focal weakness or sensory changes Current Medications Current Medications Current Medications Medications (Trade) Dose Ordered Sig/Camilo Start Time Stop Time Status Last Admin Dose Admin Acetaminophen/ Hydrocodone Bitart (Lortab 5/325) 1 tab 1X ONCE 02/28/17 09:45 02/28/17 09:46 DC 02/28/17 10:27 1 TAB Allergies Allergies Allergies Coded Allergies Type Severity Reaction Last Updated Verified No Known Drug Allergies 02/28/17 No Physical Exam Physical Exam Constitutional: Well developed, well nourished, no acute distress, non-toxic appearance. HENT: Normocephalic, atraumatic, bilateral external ears normal, oropharynx moist, nose normal. Eyes: PERRLA, EOMI, conjunctiva normal, no discharge. Neck: supple, no stridor. no midline c-spine tenderness. Cardiovascular: RRR, no murmurs, no edema. Lungs & Thorax: LCTAB, no wheezing, no respiratory distress. Abdomen: soft, nontender, nondistended. Skin: Warm, dry, no erythema, no rash. Back: No spinal tenderness or step offs. Extremities: right shoulder no swelling or deformity, mild tenderness diffusely over shoulder joint & proximal humerus, limited ROM secondary to pain with abduction, internal rotation, forward flexion. no elbow or wrist tenderness, radial pulse 2+, sensation intact to axillary nerve, normal radial/median/ulnar nerve sensory & motor function.. Neurologic: Alert and oriented X 3, CN2-12 grossly intact, symmetric strength/ sensation to UE & LE, no focal deficits noted. Psychologic: Affect normal, judgement normal, mood normal. Current Patient Data Vital Signs Vital Signs Date Time Temp Pulse Resp B/P Pulse Ox O2 Delivery O2 Flow Rate FiO2 02/28/17 11:53 88 20 181/80 97 02/28/17 08:55 98.6 Room Air 98.6 Lab Values Laboratory Tests Test 02/28/17 09:40 White Blood Count 7.1x10^3/uL (4.0-11.0) Red Blood Count 3.51x10^6/uL (3.50-5.40) Hemoglobin 10.4g/dL (12.0-15.5) L Hematocrit 31.1% (36.0-47.0) L Mean Corpuscular Volume 89fL (79-100) Mean Corpuscular Hemoglobin 30pg (25-35) Mean Corpuscular Hemoglobin Concent 33g/dL (31-37) Red Cell Distribution Width 16.6% (11.5-14.5) H Platelet Count 203x10^3/uL (140-400) Neutrophils (%) (Auto) 81% (31-73) H Lymphocytes (%) (Auto) 7% (24-48) L Monocytes (%) (Auto) 11% (0-9) H Eosinophils (%) (Auto) 0% (0-3) Basophils (%) (Auto) 1% (0-3) Neutrophils # (Auto) 5.7x10^3uL (1.8-7.7) Lymphocytes # (Auto) 0.5x10^3/uL (1.0-4.8) L Monocytes # (Auto) 0.8x10^3/uL (0.0-1.1) Eosinophils # (Auto) 0.0x10^3/uL (0.0-0.7) Basophils # (Auto) 0.0x10^3/uL (0.0-0.2) Prothrombin Time 12.3SEC (11.7-14.0) Prothrombin Time INR 1.0 (0.8-1.1) PTT 28SEC (24-38) Sodium Level 142mmol/L (136-145) Potassium Level 3.7mmol/L (3.5-5.1) Chloride Level 105mmol/L (98-107) Carbon Dioxide Level 27mmol/L (21-32) Anion Gap 10 (6-14) Blood Urea Nitrogen 11mg/dL (7-20) Creatinine 1.2mg/dL (0.6-1.0) H Estimated GFR (Cockcroft-Gault) 52.4 Glucose Level 106mg/dL (70-99) H Calcium Level 10.8mg/dL (8.5-10.1) H Troponin I Quantitative < 0.017ng/mL (0.000-0.055) AC-Byf-R-Type Natriuretic Peptide 98pg/mL (0-449) Laboratory Tests 02/28/17 09:40 Laboratory Tests 02/28/17 09:40 EKG EKG Interpreted by me: Normal sinus rhythm rate 86, no acute ST or T wave changes, normal intervals, no ectopy. [] Radiology/Procedures Radiology/Procedures PROCEDURE: SHOULDER 2+V RIGHT Right shoulder, 3 views, 02/28/2017: History: Fall, shoulder pain The bony structures are demineralized. There is an impacted fracture of the right humeral neck. There is slight anterior displacement of the distal fracture fragment. There is subacromial spurring with degenerative change at the acromioclavicular and glenohumeral articulations. Scattered arterial calcifications are present. IMPRESSION: 1. Demineralization. 2. Acute impacted right humeral neck fracture. DICTATED and SIGNED BY: JOHNATHAN JERNIGAN MD DATE: 02/28/17 0709 PROCEDURE: HEAD WO CONTRAST CT of the head without contrast, 02/28/2017: History: Fall, dizziness Comparison is made to a study from 02/17/2017. There are unchanged extensive patchy lucencies in the deep white matter bilaterally compatible with chronic ischemic change. There is mild cerebral atrophy. The ventricles are mildly enlarged on a compensatory basis. There is no shift of the midline structures. There is no evidence of acute intracranial hemorrhage or mass effect. There is extensive hyperostosis interna. A small amount of fluid is noted in the right sphenoid sinus. IMPRESSION: 1. Chronic findings as described above. 2. No acute intracranial abnormality is detected. PQRS Compliance Statement: One or more of the following individualized dose reduction techniques were utilized for this examination: 1. Automated exposure control 2. Adjustment of the mA and/or kV according to patient size 3. Use of iterative reconstruction technique DICTATED and SIGNED BY: JOHNATHAN JERNIGAN MD DATE: 02/28/17 1008[] Course & Med Decision Making Course & Med Decision Making Pertinent Labs and Imaging studies reviewed. (See chart for details) Patient presents with syncopal episode & shoulder pain. X-ray shows proximal humerus fracture. Pain well controlled here. Workup demonstrates no serious etiology of her syncope & she remains asymptomatic 12 hours after the event which was precipitated by sudden standing from sitting position. She feels well & would like to go home. Discussed orthopedic injury with Dr. Varela, he recommends sling here, follow up in clinic tomorrow morning at 0900 for likely operative repair at that time, NPO after midnight tonight in preparation for this event. Patient agrees with plan. Gave prescription for norco, no drinking alcohol or driving, given sedation precautions may increase fall risk. Also instructed to follow up with PCP regarding syncope. Return for recurrence of syncope, neurovascular compromise, otherwise worsening condition. Discharged home in stable condition. [] Dragon Disclaimer Dragon Disclaimer This electronic medical record was generated, in whole or in part, using a voice recognition dictation system. Departure Departure Impression: Primary Impression: Fracture of humerus, proximal, right, closed Additional Impressions: Syncope Essential hypertension Disposition: 01 HOME, SELF-CARE Condition: STABLE Referrals: ASHLEE CARRION MD (PCP) JENNY VARELA MD Patient Instructions: Humerus Fracture, Treated with Immobilization, Easy-to- Read, Syncope, [id number] Additional Instructions: You were seen in the emergency department today for arm pain & you have a fracture of your humerus. Please wear the sling for comfort. You can take norco for severe pain. No drinking alcohol or driving while taking this medication; it can make you sleepy & more likely to fall. Please drink fluid to stay hydrated & stand slowly from sitting position. Tomorrow morning please go to the orthopedic clinic at 9:[address] appointment with Dr. Varela. Do not eat or drink anything after midnight. You may have surgery tomorrow. Come back for severe chest pain or shortness of breath, additional fainting episode, numbness or weakness in right arm, cold fingers on right hand, any otherwise worsening condition. Scripts Hydrocodone/Apap 5-325 ([place] 5-325 Tablet)1 Each Tablet1 Tab PO PRN Q6HRS PRN PAIN #10 TAB Prov:LATIA REIS MD 02/28/17 Problem Qualifiers LATIA REIS MD Feb 28, 2017 11:06
[2017-02-28 11:53] VITALS: BP 181/80
== END 2017-02-28 11:54 | disposition home or self-care (01) ==
LOC: ER 08:39
DX: S42.291A Other displaced fracture of upper end of right humerus, initial encounter for closed fracture (principal); R55 Syncope and collapse; I10 Essential (primary) hypertension; E78.00 Pure hypercholesterolemia, unspecified; W18.39XA Other fall on same level, initial encounter; Y93.89 Activity, other specified; Y92.89 Other specified places as the place of occurrence of the external cause; Y99.8 Other external cause status
CPT/HCPCS: 36415; 70450; 73030; 80048; 83880; 84484; 85027; 85610; 85730; 93005; 99285-25

== ENCOUNTER 2017-03-01 13:51 | Inpatient (IN) | payer OTHER ==
[~2017-03-01] VITALS: Ht 147.3 cm; Wt 46.4 kg
[2017-03-01] VITALS (7 sets, daily range): BP systolic 146–166; BP diastolic 60–67
[~2017-03-01 13:51] MED LIST changes: +CEFAZOLIN 1GM IVPB FOR OMNI 50 ML IV ONE; +FENTANYL PF 100 MCG/2 ML VIAL. IV PRN; +HYDR-971 PO; +HYDROMORPHONE 2 MG/ML VIAL. IV PRN; +IV RINGERS,LACTATED 1000ML 1,000 ML IV SCH; +LIDOCAINE 1% 1 ML SYRINGE. ID PRN; +MORPHINE SULFATE 2 MG/ML DISP.SYRIN. IV PRN; +ONDANSETRON PF 4 MG/2 ML VIAL. IV PRN; +PROCHLORPERAZINE 10 MG/2 ML VIAL. IV PRN
[2017-03-01] MEDS ORDERED: CEFAZOLIN 1GM IVPB FOR OMNI 50 ML IV ONE (14:19)
[2017-03-01] MEDS ORDERED: FENTANYL PF 100 MCG/2 ML VIAL. ONE (17:01)
[2017-03-01] MEDS ORDERED: PROPOFOL 20 ML IV ONE (17:04)
[2017-03-01] MEDS ORDERED: PHENYLEPHRINE 10 MG/ML VIAL. ONE (17:04)
[2017-03-01] MEDS ORDERED: DEXAMETHASONE SOD PHOS 20 MG/5 ML VIAL. ONE (17:04)
[2017-03-01] MEDS ORDERED: LIDOCAINE 2% 100 MG/5 ML DISP.SYRIN. ONE (17:04)
[2017-03-01] MEDS ORDERED: SEVOFLURANE > 120 MINUTES. IH ONE (17:04)
[2017-03-01] MEDS ORDERED: ONDANSETRON PF 4 MG/2 ML VIAL. ONE (17:04)
[2017-03-01] MEDS ORDERED: BUPIVACAINE-EPI 0.25%-1:200000 MPF 30 ML VIAL. ONE (18:06)
[2017-03-01] MEDS ORDERED: OXYCODONE/APAP 5/325 TABLET. PO PRN (21:00)
[2017-03-01] MEDS ORDERED: FENTANYL PF 100 MCG/2 ML VIAL. IV PRN ×2 (21:00)
[2017-03-01] MEDS ORDERED: HYDROCODONE/APAP 10/325 TABLET. PO PRN (21:00)
[2017-03-01] MEDS ORDERED: PROCHLORPERAZINE 5 MG TABLET. PO PRN (21:00)
[2017-03-01] MEDS ORDERED: HYDROCODONE/APAP 5/325MG TABLET. PO PRN (21:00)
[2017-03-01] MEDS ORDERED: MORPHINE SULFATE 2 MG/ML DISP.SYRIN. IV PRN ×2 (21:00)
[2017-03-01] MEDS ORDERED: ZOLPIDEM 5 MG TABLET. PO PRN (21:00)
[2017-03-01] MEDS ORDERED: HYDROMORPHONE 2 MG/ML VIAL. IV PRN (21:00)
[2017-03-01] MEDS ORDERED: OXYCODONE/APAP 7.5/325 TABLET. PO PRN (21:00)
[2017-03-01] MEDS ORDERED: 0.9 % SODIUM CHLORIDE 10 ML DISP.SYRIN. IV PRN (21:00)
[2017-03-01] MEDS ORDERED: CALCIUM CARBONATE 500 MG TAB.CHEW PO PRN (21:00)
[2017-03-01] MEDS ORDERED: HYDROCODONE/APAP 7.5/325MG TABLET. PO PRN (21:00)
[2017-03-01] MEDS ORDERED: ACETAMINOPHEN 325 MG TABLET. PO PRN (21:00)
[2017-03-01] MEDS ORDERED: PROCHLORPERAZINE 10 MG/2 ML VIAL. IV PRN (21:00)
[2017-03-01] MEDS ORDERED: ONDANSETRON PF 4 MG/2 ML VIAL. IV PRN (21:00)
[2017-03-01] MEDS ORDERED: TRAMADOL 50 MG TABLET. PO PRN ×2 (21:00)
[2017-03-01] MEDS ORDERED: IV RINGERS,LACTATED 1000ML 1,000 ML IV SCH (21:00)
[2017-03-01] MEDS ORDERED: DEXTROSE 50% 25 GM / 50ML DISP.SYRIN. IV PRN (21:00)
--- NOTE | 2017-03-01 21:07 | PDOC ---
BRIEF OPERATIVE NOTE Date: Mar 01, 2017 Pre-Op Diagnosis proximal humerus fx Post-Op Diagnosis same plus rotator cuff arthropathy Procedure Performed right reverse total shoulder Surgeon Nichole Anesthesia Type: General Blood Loss 200cc Findings above Complications none JENNY ROA MD Mar 01, 2017 21:07
--- NOTE | 2017-03-01 21:31 | RAD ---
PROCEDURE Right shoulder radiographs. HISTORY Postoperative. COMPARISON None. FINDINGS True AP and scapular Y-view of the right shoulder. There is a reverse right total shoulder arthroplasty. Relationship of the glenoid component to the humeral component appears anatomic. On the AP view, there are mild ossific density adjacent to the medial and lateral aspect of the proximal humerus, may be osteophyte or possibly small ossific fragments. IMPRESSION Reverse right total shoulder arthroplasty as described above. Electronically signed by: Ramu Roberts MD (Mar 01, 2017 21:30:25)
[2017-03-01] MEDS: CLONIDINE HCL 0.1 MG TABLET PO SCH (23:23)
[2017-03-01] MEDS: CEFAZOLIN SODIUM 1 GM in IV NORMAL SALINE 50ML 50 ML IV SCH (23:23)
[2017-03-01] MEDS: IV DEXTROSE 5 %-0.45 % NACL 1,000 ML IV SCH (23:23)
[2017-03-01] MEDS: CELECOXIB 200 MG CAPSULE. PO SCH (23:23)
[2017-03-02 00:15] VITALS: BP 129/54
[2017-03-02 01:15] VITALS: BP 131/54
[2017-03-02 03:00] VITALS: BP 144/59
--- NOTE | 2017-03-02 04:00 | OP ---
DATE OF SURGERY: 03/01/2017 PREOPERATIVE DIAGNOSIS: Displaced right proximal humerus fracture. POSTOPERATIVE DIAGNOSES: Displaced right proximal humerus fracture plus right shoulder rotator cuff arthropathy. PROCEDURE: Conversion for a planned operative fixation proximal humerus fracture to a right reverse total shoulder arthroplasty for fracture. SURGEON: Santy Varela MD ANESTHESIA: General. ESTIMATED BLOOD LOSS: About 200 mL. COMPLICATIONS: None. OPERATIVE INDICATIONS: The patient is a 77-year-old female with previous good function report of her right shoulder that is now nonfunctional following a fall. X-rays show displacement of a proximal humerus fracture. The patient was comfortable enough to go to home from the Emergency Room yesterday, but presented to my office today for discussion of her treatment options. She states that she has been very healthy and active and really does desire to have ____ use of her arm, except that there is some surgical risk associated with this procedure including possibility of infection, nerve or blood vessel damage, medical or other anesthetic complications among others. We talked about the fact that the humeral head appeared to be significantly misaligned and would be expected to result in significant limitations for her potentially if not corrected, but certainly that needs to be weighed against any potential medical risks of the procedure and all her questions were answered. She is willing to proceed with operative evaluation and treatment. DESCRIPTION OF PROCEDURE: The patient was identified, procedure verified, patient placed in the supine position on the operating table. After adequate amounts of general endotracheal anesthesia were administered, she was placed in a semi beach chair position with the T-max attachment and headrest, and the right shoulder was prepped and draped in standard sterile fashion. After timeout was performed, the patient and procedure identified and verified, a deltopectoral approach was used to gain access to the anterior of the shoulder. She was noted to have obvious fracture and a very obvious malalignment of the humeral head with essentially the articular surface being malaligned nearly 180 degrees. In addition, while there was some subscapularis tendon attachment intact towards the inferior aspect aside from a small teres minor attachment to one of the fragments essentially no rotator cuff attachment whatsoever to the humeral head. In addition, she had displayed significant signs of erosion and ____ of the acromion as the wear surface is essentially showing rotator cuff arthropathy. At this point, I was very concerned ____ with adequate fixation of the proximal humerus fracture that she was not going to really ____ her desired function and decided to convert to a reverse total shoulder arthroplasty as a more appropriate procedure. Therefore, an intramedullary guide was used with starting hand reamers up to a size 13 ____ for a cut of the humeral head that accomplished reverse total shoulder arthroplastic implant. Tissue attachments were preserved much as possible at the lesser tuberosity area and a trial 13 mm component was tentatively placed based on overall good placement and stability, and decided to proceed with exposure of the glenoid, any remaining anterior labrum and other scar tissue was cleared away with rongeur and electrocautery. A guidewire was placed slightly inferior about 10 degree ____ centered in the inferior aspect of the glenoid. Drilling was carried out over the guidewire to allow cannulated reaming to secure good bleeding bone for the trabecular metal glenoid component ____ was selected. Drilling was carried out in the superior aspect ____ and screws were placed to the base of the coracoid and down into the scapular spine, both 36 mm in length and both with excellent bite. Locking caps were then used to secure the screw placement and a 36-mm glenosphere was impacted to engage the Dragan taper. The trial stem was then placed and trial fit with a 0 and a +3 standard liner, which was noted to provide excellent stability and motion. Trial humeral stem was then removed. Thorough irrigation carried out with normal saline solution and low viscosity Palacos cement was used to cement a size 12 trabecular metal humeral component distally while avoiding any penetration of cement to the trabecular metal itself and the bony fragments were brought back together following placement of a +3 standard 36 mm diameter liner, which again provided equivalent stability and motion and desired bony fragments were repaired with #2 Ethibond suture and gave excellent apposition to each other and to the trabecular metal surfaces of the implant. Irrigation was again carried out with normal saline solution. Layered closure accomplished with buried #1 and 2-0 Vicryl and skin closure with gisselle. Sterile dressings were applied. The patient was placed in a sling, extubated and transferred to postop holding in stable condition having tolerated the procedure well. SANTY VARELA MD DR: MEHNAZ/layton JOB#: [id number] / [id number]
[2017-03-02] MEDS: CEFAZOLIN SODIUM 1 GM in IV NORMAL SALINE 50ML 50 ML IV SCH ×2 (05:57→12:28)
[2017-03-02] MEDS: CLONIDINE HCL 0.1 MG TABLET PO SCH (05:57)
[2017-03-02] MEDS ORDERED: MAGNESIUM HYDROXIDE 2,400 MG/30 ML ORAL.SUSP. PO PRN (06:00)
[2017-03-02 07:00] VITALS: BP 141/58
[2017-03-02] MEDS ORDERED: ASPIRIN ENTERIC COATED 325 MG TABLET.DR. PO SCH (08:00)
[2017-03-02] MEDS: IV DEXTROSE 5 %-0.45 % NACL 1,000 ML IV SCH (08:33)
[2017-03-02] MEDS: CELECOXIB 200 MG CAPSULE. PO SCH (08:35)
[2017-03-02] MEDS ORDERED: AMIODARONE HCL 200 MG TABLET. PO SCH (09:00)
[2017-03-02] MEDS ORDERED: DOXAZOSIN MESYLATE 1 MG TABLET. PO SCH (09:00)
[2017-03-02] MEDS ORDERED: ALLOPURINOL 100 MG TABLET. PO SCH (09:00)
[2017-03-02] MEDS ORDERED: SENNOSIDES/DOCUSATE 8.6/50MG TABLET. PO SCH (09:00)
[2017-03-02] MEDS ORDERED: MULTIVITAMIN with MINERAL TABLET. PO SCH (09:00)
[2017-03-02] MEDS ORDERED: FERROUS SULFATE 325 MG TABLET. PO SCH (09:00)
[2017-03-02] MEDS ORDERED: AMLODIPINE BESYLATE 10 MG TABLET. PO SCH (09:00)
[2017-03-02 10:58] VITALS: BP 117/49
[2017-03-02 12:10] LABS: HEMATOCRIT 25.7 % (36.0-47.0); HEMOGLOBIN 8.5 g/dL (12.0-15.5)
[2017-03-02] MEDS ORDERED: BISACODYL 10 MG SUPP.RECT. PR PRN (16:00)
--- NOTE | 2017-03-04 09:56 | DS ---
DATE OF DISCHARGE: 03/02/2017 PRINCIPAL DIAGNOSIS: Right proximal humerus fracture and rotator cuff arthropathy. PROCEDURE: Right reverse total shoulder arthroplasty for fracture. DISCHARGE MEDICATIONS: Include [place] 7.5/325 one p.o. q. 6h. p.r.n. pain. Resume home medications. Follow up with Dr. Varela in 10-14 days. ACTIVITY RESTRICTIONS: Include sling for comfort only. The patient may use the arm as tolerated, except avoid reaching around her back, for example, ____. I am going to start her on some formal physical therapy after I see her back postoperatively. She may shower as long as the incision is clean, dry, and covered. No soaking. DISCHARGE INSTRUCTIONS: Report any redness, drainage, fever, chills, uncontrolled pain, or other problems. BRIEF DESCRIPTION OF HOSPITAL COURSE: The patient fell and injured her right shoulder on and was diagnosed with proximal humerus fracture. 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 She came in as an outpatient with same day admission to undergo a planned fixation of a proximal humerus fracture, which was changed to a reverse total shoulder arthroplasty because of the rotator cuff arthropathy findings. She did extremely well postoperatively, really had very little pain and had required very little pain medication itself. Pain was well controlled medically, she was otherwise stable, and got around well safely with her activities of daily living in terms of transfers and ambulation with physical therapy. She remained medically stable and as a result, was discharged home in stable condition. JENNY VARELA MD DR: MEHNAZ/layton JOB#: [id number] / [id number] ASHLEE Gonzalez MD, ANNE MD
== END 2017-03-02 13:56 | disposition home or self-care (01) | DRG 483 ==
LOC: SURG 13:51 → 4 NORTH 21:18
PROVIDERS: ADMIT Orthopaedic Surgery; ATTEND Orthopaedic Surgery
PROC: 0RRJ00Z Replacement of Right Shoulder Joint with Reverse Ball and Socket Synthetic Substitute, Open Approach (ICD-10-PCS; principal; 2017-03-01 16:25)
DX: S42.201A Unspecified fracture of upper end of right humerus, initial encounter for closed fracture (principal); W19.XXXA Unspecified fall, initial encounter; M12.9 Arthropathy, unspecified; Y93.89 Activity, other specified; Y92.89 Other specified places as the place of occurrence of the external cause; Y99.8 Other external cause status
CPT/HCPCS: 36415; 70450; 73030; 76000; 80048; 83880; 84484; 85014; 85018; 85027; 85610; 85730; 93005; J0690; J1100; J2405; J2704; J3010; 97530

== ENCOUNTER 2017-08-27 12:28 | Emergency (ER) | payer OTHER ==
[~2017-08-27] VITALS: Ht 121.9 cm; Wt 48.5 kg
[~2017-08-27 12:28] MED LIST changes: -CEFAZOLIN 1GM IVPB FOR OMNI 50 ML IV ONE; -FENTANYL PF 100 MCG/2 ML VIAL. IV PRN; -HYDROMORPHONE 2 MG/ML VIAL. IV PRN; -IV RINGERS,LACTATED 1000ML 1,000 ML IV SCH; -LIDOCAINE 1% 1 ML SYRINGE. ID PRN; -MORPHINE SULFATE 2 MG/ML DISP.SYRIN. IV PRN; -ONDANSETRON PF 4 MG/2 ML VIAL. IV PRN; -PROCHLORPERAZINE 10 MG/2 ML VIAL. IV PRN
--- NOTE | 2017-08-27 12:52 | PHYS DOC ---
Past Medical History Past Medical History: High Cholesterol, Hypertension Past Surgical History: Hysterectomy Alcohol Use: None Drug Use: None Adult General Chief Complaint Chief Complaint: CHEST WALL PAIN HPI HPI Patient is a 77 year old and Brazilian female who presents with left sided chest pain. She states her last night around 6 PM and is sharp in nature and doesn't radiate, it is located behind her left breast. She denies any nausea vomiting or shortness of breath associated with this. She states nothing she does makes it better or worse. She did take 81 mg of aspirin and states that might of help the pain last night. She has a past medical history dyslipidemia and hypertension. She has a previous history of smoking and quit approximately 8 years ago and prior to that smoked approximate half a pack per day. She denies any cardiac workup in the past. She states she's never had pain or discomfort like this before. Review of Systems Review of Systems Constitutional: Denies fever or chills [] Eyes: Denies change in visual acuity, redness, or eye pain [] HENT: Denies nasal congestion or sore throat [] Respiratory: Denies cough or shortness of breath [] Cardiovascular: No additional information not addressed in HPI [] GI: Denies abdominal pain, nausea, vomiting, bloody stools or diarrhea [] : Denies dysuria or hematuria [] Musculoskeletal: Denies back pain or joint pain [] Integument: Denies rash or skin lesions [] Neurologic: Denies headache, focal weakness or sensory changes [] Endocrine: Denies polyuria or polydipsia [] Current Medications Current Medications Current Medications Medications (Trade) Dose Ordered Sig/[facility] Start Time Stop Time Status Last Admin Dose Admin Aspirin (Elissa Aspirin) 325 mg 1X ONCE 08/27/17 13:15 08/27/17 13:16 DC 08/27/17 13:31 325 MG Allergies Allergies Allergies Coded Allergies Type Severity Reaction Last Updated Verified No Known Drug Allergies 05/01/17 No Physical Exam Physical Exam Constitutional: Well developed, well nourished, no acute distress, non-toxic appearance. [] HENT: Normocephalic, atraumatic, bilateral external ears normal, oropharynx moist, no oral exudates, nose normal. [] Eyes: PERRLA, EOMI, conjunctiva normal, no discharge. [] Neck: Normal range of motion, no tenderness, supple, no stridor. [] Cardiovascular:Heart rate regular rhythm, no murmur [] Lungs & Thorax: Bilateral breath sounds clear to auscultation [] Abdomen: Bowel sounds normal, soft, no tenderness, no masses, no pulsatile masses. [] Skin: Warm, dry, no erythema, no rash. [] Back: No tenderness, no CVA tenderness. [] Extremities: No tenderness, no cyanosis, no clubbing, ROM intact, no edema. [] Neurologic: Alert and oriented X 3, normal motor function, normal sensory function, no focal deficits noted. [] Psychologic: Affect normal, judgement normal, mood normal. [] Current Patient Data Vital Signs Vital Signs Date Time Temp Pulse Resp B/P (MAP) Pulse Ox O2 Delivery O2 Flow Rate FiO2 08/27/17 14:41 69 18 149/69 (95) 98 Room Air 08/27/17 12:44 98.0 98.0 Lab Values Laboratory Tests Test 08/27/17 13:14 08/27/17 13:18 White Blood Count 5.7 x10^3/uL (4.0-11.0) Red Blood Count 3.53 x10^6/uL (3.50-5.40) Hemoglobin 10.9 g/dL (12.0-15.5) L Hematocrit 32.8 % (36.0-47.0) L Mean Corpuscular Volume 93 fL (79-100) Mean Corpuscular Hemoglobin 31 pg (25-35) Mean Corpuscular Hemoglobin Concent 33 g/dL (31-37) Red Cell Distribution Width 16.0 % (11.5-14.5) H Platelet Count 180 x10^3/uL (140-400) Neutrophils (%) (Auto) 72 % (31-73) Lymphocytes (%) (Auto) 14 % (24-48) L Monocytes (%) (Auto) 12 % (0-9) H Eosinophils (%) (Auto) 1 % (0-3) Basophils (%) (Auto) 2 % (0-3) Neutrophils # (Auto) 4.1 x10^3uL (1.8-7.7) Lymphocytes # (Auto) 0.8 x10^3/uL (1.0-4.8) L Monocytes # (Auto) 0.7 x10^3/uL (0.0-1.1) Eosinophils # (Auto) 0.0 x10^3/uL (0.0-0.7) Basophils # (Auto) 0.1 x10^3/uL (0.0-0.2) Prothrombin Time 13.2 SEC (11.7-14.0) Prothrombin Time INR 1.1 (0.8-1.1) Sodium Level 139 mmol/L (136-145) Potassium Level 3.8 mmol/L (3.5-5.1) Chloride Level 103 mmol/L (98-107) Carbon Dioxide Level 26 mmol/L (21-32) Anion Gap 10 (6-14) Blood Urea Nitrogen 19 mg/dL (7-20) Creatinine 1.3 mg/dL (0.6-1.0) H Estimated GFR (Cockcroft-Gault) 47.8 Glucose Level 113 mg/dL (70-99) H Calcium Level 10.7 mg/dL (8.5-10.1) H Magnesium Level 2.0 mg/dL (1.8-2.4) Total Bilirubin 0.6 mg/dL (0.2-1.0) Direct Bilirubin 0.2 mg/dL (0.0-0.2) Aspartate Amino Transferase (AST) 47 U/L (15-37) H Alanine Aminotransferase (ALT) 90 U/L (14-59) H Alkaline Phosphatase 171 U/L (46-116) H Creatine Kinase 77 U/L (26-192) Creatine Kinase MB (Mass) 0.6 ng/mL (0.0-3.6) Creatine Kinase MB Relative Index 0.8 % (0-4) Troponin I Quantitative < 0.017 ng/mL (0.000-0.055) AM-Wij-L-Type Natriuretic Peptide 125 pg/mL (0-449) Total Protein 7.7 g/dL (6.4-8.2) Albumin 3.5 g/dL (3.4-5.0) Lipase 180 U/L (73-393) Urine Collection Type Unknown Urine Color Yellow Urine Clarity Cloudy Urine pH 6.0 Urine Specific [place] 1.010 Urine Protein 100 mg/dL (NEG-TRACE) Urine Glucose (UA) Negative mg/dL (NEG) Urine Ketones (Stick) Negative mg/dL (NEG) Urine Blood Negative (NEG) Urine Nitrite Negative (NEG) Urine Bilirubin Negative (NEG) Urine Urobilinogen Dipstick 1.0 mg/dL (0.2 mg/dL) Urine Leukocyte Esterase Small (NEG) Urine RBC 0 /HPF (0-2) Urine WBC 0 /HPF (0-4) Urine Squamous Epithelial Cells Occ /LPF Urine Bacteria 0 /HPF (0-FEW) Laboratory Tests 08/27/17 13:14 Laboratory Tests 08/27/17 13:14 EKG EKG EKG shows sinus rhythm with rate of [address] elevations, T-wave inversions noted in lead 3, early re-pole noted in V2, QTC 443 ms, as interpreted by me. Radiology/Procedures Radiology/Procedures [facility] [address] [place], [place] [id number] IMAGING REPORT Signed PATIENT: KIRK SILVA ACCOUNT: [id number] : 1940 LOCATION: ER AGE: 77 SEX: F EXAM STATUS: REG ER ORD. PHYSICIAN: KACY MAI MD REASON: chest pain PROCEDURE: PORTABLE CHEST 1V EXAM: Chest, single view. HISTORY: Chest pain. COMPARISON: 02/17/2017. FINDINGS: A frontal view of the chest is obtained. There is mild diffuse increased interstitial opacity. There is bilateral basilar atelectasis. There is no consolidation, effusion or pneumothorax. The heart is normal in size for portable technique. There is a reverse right shoulder arthroplasty. There are healed rib fractures. There is bone demineralization. IMPRESSION: Stable mild diffuse increased interstitial opacity. This may be due to chronic interstitial change or trace congestion. DICTATED and SIGNED BY: SABA MORENO MD DATE: 08/27/17 1412 CC: ASHLEE CARRION MD; KACY MAI MD ~ Impressions: Chest pain Course & Med Decision Making Course & Med Decision Making Pertinent Labs and Imaging studies reviewed. (See chart for details) EKG is similar to one performed on February 28, 2017, chest x-ray is nonacute labs also nonacute. Her vitals within normal limits she is not tachypneic and her chest pain is not pleuritic in nature. I recommend admission and cardiology consultation to the patient wants to be discharged home. She is agreed to sign out AMA. The risks were explained to her and she states she understands them. She's being sent with discharge instructions to follow-up with cardiology return back to ER if she changes her mind or her pain gets worse. Dragon Disclaimer Dragon Disclaimer This electronic medical record was generated, in whole or in part, using a voice recognition dictation system. Departure Departure Impression: Primary Impression: Chest pain Disposition: AGAINST MEDICAL ADVICE Condition: STABLE Referrals: ASHLEE CARRION MD (PCP) MARCO ANTONIO MELLO MD Patient Instructions: Chest Pain (Nonspecific)-Brief Additional Instructions: You were seen today for your chest discomfort. I recommended you be admitted to the hospital for further additional tests and evaluation. You have decided that you rather go home and not be admitted and leave AGAINST MEDICAL ADVICE. You were aware of the risks that your chest pain could be serious and he might be having a heart attack and could or become severely disabled. Since your leaving the emergency department I recommend that you return back to ER if your pain gets worse or you change your mind. You need to follow-up with her primary care physician and a shake maker. Please call Dr. Mello and schedule a follow -up appointment. Problem Qualifiers Primary Impression: Chest pain Chest pain type: unspecified Qualified Codes: R07.9 - Chest pain, unspecified KACY MAI MD Aug 27, 2017 12:52
[2017-08-27] MEDS ORDERED: ASPIRIN 325 MG TABLET PO ONE (13:15)
[2017-08-27 13:30] LABS: BASO # 0.1 x10^3/uL (0.0-0.2); BASO % 2 % (0-3); EOS % 1 % (0-3); HEMATOCRIT 32.8 % (36.0-47.0); HEMOGLOBIN 10.9 g/dL (12.0-15.5); LYMPH # 0.8 x10^3/uL (1.0-4.8); LYMPH % 14 % (24-48); MEAN CORPUSCULAR HEMOGLOBIN 31 pg (25-35); MEAN CORPUSCULAR HGB CONC 33 g/dL (31-37); MEAN CORPUSCULAR VOLUME 93 fL (79-100); MONO % 12 % (0-9); NEUT % 72 % (31-73); PLATELET COUNT 180 x10^3/uL (140-400); RED BLOOD COUNT 3.53 x10^6/uL (3.50-5.40); WHITE BLOOD COUNT 5.7 x10^3/uL (4.0-11.0)
[2017-08-27 13:31] LABS: BILIRUBIN,URINE NEGATIVE (NEG); GLUCOSE,URINE NEGATIVE (NEG); NITRITE,URINE NEGATIVE (NEG); PROTEIN,URINE 100 mg/dL (NEG-TRACE)
[2017-08-27 13:39] LABS: INR 1.1 (0.8-1.1); PROTHROMBIN TIME PATIENT 13.2 SEC (11.7-14.0)
[2017-08-27 13:40] LABS: CALCIUM 10.7 mg/dL (8.5-10.1); CREATININE 1.3 mg/dL (0.6-1.0); GFR 47.8; POTASSIUM 3.8 mmol/L (3.5-5.1)
[2017-08-27 13:47] LABS: ALBUMIN 3.5 g/dL (3.4-5.0); DIRECT BILIRUBIN 0.2 mg/dL (0.0-0.2); TOTAL BILIRUBIN 0.6 mg/dL (0.2-1.0); TOTAL PROTEIN 7.7 g/dL (6.4-8.2)
[2017-08-27 13:51] LABS: BACTERIA,URINE 0 /HPF (0-FEW); RBC,URINE 0 /HPF (0-2); SQUAMOUS EPITHELIAL CELL,UR OCC /LPF; WBC,URINE 0 /HPF (0-4)
[2017-08-27 13:56] LABS: CKMB MASS 0.6 ng/mL (0.0-3.6)
--- NOTE | 2017-08-27 14:15 | RAD ---
EXAM: Chest, single view. HISTORY: Chest pain. COMPARISON: 02/17/2017. FINDINGS: A frontal view of the chest is obtained. There is mild diffuse increased interstitial opacity. There is bilateral basilar atelectasis. There is no consolidation, effusion or pneumothorax. The heart is normal in size for portable technique. There is a reverse right shoulder arthroplasty. There are healed rib fractures. There is bone demineralization. IMPRESSION: Stable mild diffuse increased interstitial opacity. This may be due to chronic interstitial change or trace congestion.
[2017-08-27 15:11] VITALS: BP 158/77
--- NOTE | 2017-08-27 15:36 | EKG ---
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
[2017-08-27 16:33] LABS: CKMB MASS 0.7 ng/mL (0.0-3.6)
== END 2017-08-27 15:51 | disposition left against medical advice (07) ==
LOC: ER 12:28
DX: R07.89 Other chest pain (principal); E78.00 Pure hypercholesterolemia, unspecified; I10 Essential (primary) hypertension; Z90.710 Acquired absence of both cervix and uterus; Z87.891 Personal history of nicotine dependence
CPT/HCPCS: 36415; 71010; 80048; 80076; 81001; 82553; 83690; 83735; 83880; 84484; 85025; 85610; 87086; 93005; 99285-25

== ENCOUNTER 2018-05-29 09:59 | Emergency (ER) | payer OTHER ==
[2018-05-29 10:52] LABS: ADD MAN DIFF? NO
[2018-05-29 10:58] LABS: BASO % 1 % (0-3); EOS % 1 % (0-3); HEMOGLOBIN 10.7 g/dL (12.0-15.5); LYMPH # 0.4 x10^3/uL (1.0-4.8); LYMPH % 8 % (24-48); MEAN CORPUSCULAR HEMOGLOBIN 32 pg (25-35); MEAN CORPUSCULAR HGB CONC 33 g/dL (31-37); MEAN CORPUSCULAR VOLUME 96 fL (79-100); MONO # 0.5 x10^3/uL (0.0-1.1); MONO % 9 % (0-9); NEUT # 4.4 x10^3uL (1.8-7.7); NEUT % 82 % (31-73); PLATELET COUNT 162 x10^3/uL (140-400); RED BLOOD COUNT 3.34 x10^6/uL (3.50-5.40); WHITE BLOOD COUNT 5.4 x10^3/uL (4.0-11.0)
[2018-05-29 11:09] LABS: INR 1.1 (0.8-1.1); PROTHROMBIN TIME PATIENT 13.8 SEC (11.7-14.0)
[2018-05-29 11:22] LABS: ANION GAP 12 (6-14); BLOOD UREA NITROGEN 25 mg/dL (7-20); BUN/CREATININE RATIO 15 (6-20); CALCIUM 10.4 mg/dL (8.5-10.1); CARBON DIOXIDE 22 mmol/L (21-32); CHLORIDE 105 mmol/L (98-107); CREATININE 1.7 mg/dL (0.6-1.0); GLUCOSE 137 mg/dL (70-99); POTASSIUM 3.4 mmol/L (3.5-5.1); SODIUM 139 mmol/L (136-145)
[2018-05-29 11:23] LABS: ALBUMIN 3.1 g/dL (3.4-5.0); ALBUMIN/GLOBULIN RATIO 0.7 (1.0-1.7); ALK PHOS 159 U/L (46-116); ALT (SGPT) 61 U/L (14-59); AST (SGOT) 39 U/L (15-37); CKMB INDEX 0.5 % (0-4); CREATINE KINASE 197 U/L (26-192); LIPASE 164 U/L (73-393); MAGNESIUM 1.9 mg/dL (1.8-2.4); TOTAL BILIRUBIN 0.4 mg/dL (0.2-1.0); TOTAL PROTEIN 7.5 g/dL (6.4-8.2)
[2018-05-29 11:36] LABS: TROPONINI < 0.017 ng/mL (0.000-0.055)
[2018-05-29 11:49] LABS: BILIRUBIN,URINE NEGATIVE (NEG); CLARITY,URINE CLEAR; COLOR,URINE YELLOW; GLUCOSE,URINE NEGATIVE (NEG); NITRITE,URINE NEGATIVE (NEG); PH,URINE 5.5; PROTEIN,URINE >=300 mg/dL (NEG-TRACE)
[2018-05-29 11:58] LABS: HYALINE CASTS, URINE MODERATE /HPF; SQUAMOUS EPITHELIAL CELL,UR MOD /LPF
[2018-05-29 12:00] LABS: BACTERIA,URINE MOD /HPF (0-FEW)
[2018-05-29] MEDS: IV NORMAL SALINE 500ML BAG 500 ML IV (13:23)
[2018-05-29] MEDS: POTASSIUM CHLORIDE 20 MEQ TABLET.ER. PO (13:24)
== END 2018-05-29 14:13 | disposition home or self-care (01) ==
LOC: ER 09:59
DX: R55 Syncope and collapse (principal); E78.00 Pure hypercholesterolemia, unspecified; I10 Essential (primary) hypertension; Z90.710 Acquired absence of both cervix and uterus; W07.XXXA Fall from chair, initial encounter; Y93.89 Activity, other specified; Y92.89 Other specified places as the place of occurrence of the external cause; Y99.8 Other external cause status
CPT/HCPCS: 36415; 70450; 71045; 80053; 81001; 82553; 83690; 83735; 84484; 85025; 85610; 93005; 96360; 96361; 99284; 99285-25; J7040

== ENCOUNTER → 2018-09-24 | Outpatient (CLI) | payer OTHER ==
[2018-08-13 15:00] VITALS: BP 152/66
[~2018-09-24] MED LIST changes: -AMIO200T2 PO; +AMIO200T4 PO; -AMLO10TA2 PO; +AMLO10TA6 PO; -AMLO5TAB2 PO; +AMLO5TAB7 PO; +POTA10TA12 PO; -POTA10TA5 PO
[2018-09-24 14:07] LABS: GFR 37.5
[2018-09-24 14:15] LABS: CREATININE 1.6 mg/dL (0.6-1.0)
--- NOTE | 2018-09-25 09:06 | RAD ---
CT of the cervical spine without contrast, 09/24/2018: History: Follow-up C2 fracture Noncontrast scans were obtained with multiplanar reconstructions produced. Comparison is made to a study from 08/09/2018. The C2 fracture at the level of the base of the odontoid process is again identified. The degree of anterior subluxation of the odontoid process relative to the body of C2 has increased from approximately 3-4 mm to 6-7 mm. Narrowing of the central spinal canal at the mid C2 level has worsened. The thecal sac now measures approximately 6-7 mm in AP diameter compared to a measurement of 9 mm on the previous study. The C2 fracture is again noted to extend into the lateral mass and foramen transversarium on the left. C1 remains intact with its anterior arch maintaining its normal relationship to the odontoid process. The lateral masses at C1 are therefore subluxed anteriorly. The articulations between C1 and the occipital condyles are normal. Extensive multilevel degenerative changes are again noted in the mid and lower cervical spine. There is fusion of the C3 and C4 vertebral bodies and facet joints. No additional high-grade central spinal stenosis is seen. Slight loss of height of the T2 vertebral body is unchanged. IMPRESSION: 1. Anterior displacement of the fractured odontoid process relative to the C2 vertebral body has worsened slightly with increasing central spinal stenosis at the mid C2 level. 2. Moderate to severe multilevel cervical spondylosis. Note: The findings were called to Dr. Naylor's nurse at 9:02 AM on 09/25/2018. She will relay these findings to Dr. Ferraro. PQRS Compliance Statement: One or more of the following individualized dose reduction techniques were utilized for this examination: 1. Automated exposure control 2. Adjustment of the mA and/or kV according to patient size 3. Use of iterative reconstruction technique
== END | disposition home or self-care (01) ==
LOC: CT 13:30
PROVIDERS: ATTEND Neurological Surgery
DX: S12.100A Unspecified displaced fracture of second cervical vertebra, initial encounter for closed fracture (principal); M48.02 Spinal stenosis, cervical region; M47.892 Other spondylosis, cervical region; X58.XXXA Exposure to other specified factors, initial encounter; Y93.89 Activity, other specified; Y92.89 Other specified places as the place of occurrence of the external cause; Y99.8 Other external cause status
CPT/HCPCS: 36415; 72125; 82565; 84520

== ENCOUNTER → 2018-11-03 | Outpatient (CLI) | payer OTHER ==
[2018-08-13 15:00] VITALS: BP 152/66
[~2018-11-03] MED LIST changes: +HYDR-3164 PO; -HYDR-971 PO
--- NOTE | 2018-11-03 16:28 | KCIC ---
CT study of the cervical spine without contrast Clinical indications: C2 fracture follow-up. COMPARISON: CT study of the cervical spine dated September 24, 2018. TECHNIQUE: Noncontrast helical CT scanning of the cervical spine was performed. Multiplanar 2-D reconstructions were generated. PQRS compliance Statement One or more of the following individualized dose reduction techniques were utilized for this study: 1. Automated exposure control 2. Adjustment of the mA and/or kV according to patient size 3. Use of iterative reconstruction technique FINDINGS: Again seen is an oblique fracture through the base of the odontoid process. The odontoid process is displaced anteriorly by 7.5 mm. The fracture is displaced by 7.5 mm on the previous CT study. The AP dimension of the spinal canal at this level is 7.5 mm. This is unchanged as well. Fracture remains nonhealed. The edges of the fracture are sclerotic and therefore the fracture is nonunited. No discitis or osteolytic process is evident. There is a compression fracture of the T2 vertebral body. It measures 9 mm in vertical dimension. It measured 9.5 mm previously. Therefore, there has been no significant change in the vertical compression of this fracture since the previous study. 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 The odontoid process is displaced anteriorly by 7.5 mm. This is unchanged. Stable compression fracture of T2. Note-this report was called to the nurse for Dr. Onur Redmond at 4:25 PM on November 03, 2018. Electronically signed by: Abdullahi Fenton MD (11/03/2018 4:25 PM) [facility]
== END | disposition home or self-care (01) ==
LOC: KCIC CT 09:26
PROVIDERS: ATTEND Neurological Surgery
DX: S12.100A Unspecified displaced fracture of second cervical vertebra, initial encounter for closed fracture (principal); S22.029A Unspecified fracture of second thoracic vertebra, initial encounter for closed fracture; X58.XXXA Exposure to other specified factors, initial encounter; Y93.89 Activity, other specified; Y92.89 Other specified places as the place of occurrence of the external cause; Y99.8 Other external cause status
CPT/HCPCS: 72125

== ENCOUNTER → 2018-11-27 | Outpatient (CLI) | payer OTHER ==
[2018-08-13 15:00] VITALS: BP 152/66
--- NOTE | 2018-11-27 16:46 | KCIC ---
Thyroid ultrasound 11/27/2018 INDICATION: 78-year-old female with thyroid nodules. COMPARISON: CT cervical spine November 03, 2018 TECHNIQUE: Sonographic evaluation of the thyroid gland was performed utilizing grayscale and color Doppler. FINDINGS: Right thyroid lobe measures 2.7 x 2.8 x 1.8 cm. Thyroid gland is homogeneous in echotexture without significant hyperemia. 1. Cystic nodule in the superior right thyroid lobe measures 7 x 6 x 6 mm. Nodule with circumscribed with internal echogenic foci with comet tail artifact. Findings are not suspicious. 2. There is a circumscribed cystic nodule measuring 15 x 10 x 11 mm with internal echogenic foci with comet tail artifact. Internal contents are prominently anechoic. Findings are not suspicious. Left thyroid lobe measures 2.8 x 1.7 x 1.6 cm. Left gland is homogeneous echotexture without significant hyperemia. 1. There is a 16 x 12 x 9 mm solid, well marginated nodule which is wider than it is tall without internal echogenic foci without significant posterior shadowing. Internal contents are predominantly hypoechoic. Findings are highly suspicious. 2. There is a 4 x 3 x 4 mm cystic nodule in the superior left thyroid lobe. 3. There is a 6 x 6 x 6 mm solid, circumscribed nodule in the inferior left thyroid lobe which is mildly suspicious. Thyroid isthmus is normal measuring 6 mm. 1. There is a 13 x 8 x 11 mm mixed cystic solid nodule with circumscribed margins. Internal contents are predominantly isoechoic to hyperechoic. Thin calcifications are present. Findings are wider than tall. Findings are moderately suspicious. IMPRESSION: There is a suspicious thyroid nodule in the left thyroid lobe measuring 16 x 12 x 9 mm. Recommend ultrasound-guided fine-needle aspiration for further evaluation. There is a moderately suspicious business nodule measuring 13 x 8 x 11 mm. One-year follow-up thyroid ultrasound may be of benefit. Electronically signed by: Alpa Richardson MD (11/27/2018 4:42 PM) [facility]
== END | disposition home or self-care (01) ==
LOC: KCIC US 10:55
PROVIDERS: ATTEND Internal Medicine Nephrology
DX: E04.2 Nontoxic multinodular goiter (principal)
CPT/HCPCS: 76536

== ENCOUNTER → 2019-01-01 | Outpatient (CLI) | payer OTHER ==
[2018-08-13 15:00] VITALS: BP 152/66
--- NOTE | 2019-01-01 15:42 | RAD ---
Osseous skeletal survey 01/01/2019 CLINICAL INDICATION: Monoclonal gammopathy of unknown significance. COMPARISON: CT cervical spine 09/24/2018 FINDINGS: There is extensive diffuse bony demineralization significantly limiting evaluation for lytic lesions. Lateral view skull: No suspicious lytic lesions. Cervical spine: Markedly limited due to overlying c-collar. Two-view chest: Reverse total right shoulder arthroplasty. There are multilevel mild severe endplate compression deformities of the midthoracic spine. 2 view lumbar spine: There are no discrete lytic lesions. Grade 1 anterolisthesis L4-L5. Mild superior plate compression deformities at L3 and L4. AP pelvis: No discrete lytic lesion. Bilateral humeri: Reverse right shoulder arthroplasty with cemented humeral stem. No definite discrete lytic lesion. Bilateral forearm: No evidence of discrete lytic lesion. Bilateral femur: No discrete lytic lesion. Bilateral tibia and fibula: No discrete lytic lesion. IMPRESSION: 1. Significantly limited examination due to extensive osteopenia. 2. Within these limitations, no evidence of discrete lytic lesion. If there is continued clinical concern, MRI is recommended. Electronically signed by: Marco Antonio Maldonado MD (01/01/2019 3:37 PM) [facility]
== END | disposition home or self-care (01) ==
LOC: RAD 10:29
PROVIDERS: ATTEND Internal Medicine Hematology & Oncology
DX: D47.2 Monoclonal gammopathy (principal); E83.52 Hypercalcemia; M85.80 Other specified disorders of bone density and structure, unspecified site; Z96.651 Presence of right artificial knee joint
CPT/HCPCS: 77075

== ENCOUNTER → 2019-01-01 | Outpatient (CLI) | payer OTHER ==
[2018-08-13 15:00] VITALS: BP 152/66
[~2019-01-01] MED LIST changes: -AMLO10TA6 PO; +AMLO10TA8 PO; +AMLO5TAB10 PO; -AMLO5TAB7 PO
--- NOTE | 2019-01-01 15:04 | RAD ---
PQRS Compliance Statement: One or more of the following individualized dose reduction techniques were utilized for this examination: 1. Automated exposure control 2. Adjustment of the mA and/or kV according to patient size 3. Use of iterative reconstruction technique CT CERVICAL SPINE WITHOUT CONTRAST Clinical Indication: C2 RING FX Comparison: CT cervical spine without contrast November 03, 2018. Technique: Noncontrast helical CT of the cervical spine was performed. Axial, sagittal, and coronal reconstructions were obtained. Findings: Redemonstrated nonunited oblique fracture of the base of the odontoid. The odontoid is anteriorly displaced 7 mm which is unchanged. The craniovertebral junction is intact. There is diffuse demineralization. There is mild grade 1 anterolisthesis of C4 on C5 and C7 on T1. Facet joints are intact, hypertrophic. C3/C4 facet joints are fused bilaterally. There is severe disc space narrowing of C3/C4 and C5/C6. Increased from prior study, there is central canal stenosis on the right at the posterior bony ring of C1 and at the base of C2. AP diameter along the right portion of the canal is about 6 mm. Uncinate process hypertrophy of C5/C6. Central canal stenosis of C5/C6 is mild. There is severe left and mild right neural foraminal narrowing. The thyroid is heterogeneous. Bilateral carotid artery calcifications. Severe calcification of the carotid bulbs bilaterally. The visualized lung apices are clear. IMPRESSION: 1. Unchanged nonunited oblique fracture of the base of the odontoid. 2. Central canal stenosis on the right at the posterior bony ring of C1 and base of C2. 3. No acute fracture. Electronically signed by: Boo Martinez MD (01/01/2019 2:59 PM) [id number]
== END ==
LOC: CT 10:26
PROVIDERS: ATTEND Neurological Surgery
DX: S12.120K Other displaced dens fracture, subsequent encounter for fracture with nonunion (principal); M81.0 Age-related osteoporosis without current pathological fracture; M48.02 Spinal stenosis, cervical region; I65.23 Occlusion and stenosis of bilateral carotid arteries; Z98.1 Arthrodesis status; X58.XXXD Exposure to other specified factors, subsequent encounter
CPT/HCPCS: 72125

== ENCOUNTER → 2019-01-19 | Outpatient (CLI) | payer OTHER ==
[2018-08-13 15:00] VITALS: BP 152/66
--- NOTE | 2019-01-19 14:35 | RAD ---
Ultrasound-guided thyroid biopsy #1, 01/19/2019: HISTORY: Suspicious thyroid nodules Previous imaging demonstrated a multinodular gland. We were asked to biopsy a nodule in isthmus as well as an adjacent dominant nodule in the medial aspect of the left lobe of the gland. We first targeted the nodule in the isthmus. Under local anesthesia, aseptic conditions and sonographic guidance a 25-gauge needle was passed into this nodule via an anterolateral approach. 3 separate aspirates were obtained from this nodule in this manner and sent to pathology for evaluation. Ultrasound-guided thyroid biopsy #2, 01/19/2019: We then targeted the adjacent dominant nodule in the medial aspect of the left lobe of the gland. Under sonographic guidance and utilizing a similar anterolateral approach, 3 separate 25-gauge aspirates were obtained from this nodule and sent to pathology for evaluation. Hemostasis was then obtained. The patient tolerated the procedures well and left the department in stable condition. The pathology results are pending. Electronically signed by: Jacky Lion MD (01/19/2019 2:32 PM) [facility]
--- NOTE | 2019-01-22 12:12 | PATHOLOGY ---
Note [facility] Accession Number: [id number] TESTS RESULT FLAG UNITS REF RANGE LAB Clinician Provided Cytology Information No. of containers..01 Other (Miscellaneous) Source: ISTHMUS THYROID DIAGNOSIS: ISTHMUS THYROID NEGATIVE FOR MALIGNANT CELLS. THIS INTERPRETATION INCLUDES EVALUATION OF A CELL BLOCK. COMMENT, THE ASPIRATE CONSISTS OF FOAM CELLS AND SOME COLLOID LIKELY CYSTIC CONTENTS ONLY. THYROID FOLLICULAR CELLS ARE NOT PRESENT FOR EVALUATION AND HENCE THE TISSUE MAY NOT BE METAL MINER BLASTING. SUGGEST FOLLOW UP CLINICALLY INDICATED. Signed out by: 02 Vinicio Bazzi MD, Pathologist NPI- [id number] Performed by: Boo Garland, Hub Borer ([facility]) Gross description: 01 30ML, CLEAR, COLORLESS /LCS FLAG LEGEND: L-Low Normal,H-High Normal,LL-Alert Low,HH-Alert High <-Panic Low,>-Panic High,A-Abnormal,AA-Critical Abnormal Performed at: [facility] [address] [place] [address] [address] [place] [address] Abisai Trujillo MD, ANTHONYMATTIE [facility] [address] Geoffrey Vann MD, Specimen Comment: A courtesy copy of this report has been sent to Specimen Comment: [phone]. Specimen Comment: [id number] Specimen Comment: Report sent to Performed at: 01 [facility] [address], [place], [place] [id number] MD Abisai Trujillo MD Phone: [phone]
--- NOTE | 2019-01-22 12:12 | PATHOLOGY ---
Note [facility] Accession Number: [id number] TESTS RESULT FLAG UNITS REF RANGE LAB Clinician Provided Cytology Information No. of containers..01 Other (Miscellaneous) Source: LEFT THYROID DIAGNOSIS: LEFT THYROID NEGATIVE FOR MALIGNANT CELLS. BETHESDA CATEGORY II. SPECIMEN CONSISTS OF BENIGN FOLLICULAR CELLS, HEMOSIDERIN-LADEN MACROPHAGES, COLLOID, AND BLOOD. THIS PATTERN IS CONSISTENT WITH A COLLOID NODULE. THIS INTERPRETATION INCLUDES EVALUATION OF A CELL BLOCK. COMMENT, THE MATERIAL ASPIRATED MAY NOT BE DETECTIVE NARCOTICS AND VICE. SUGGEST CLINICAL CORRELATION AND FOLLOW UP CLINICALLY INDICATED. Pathologist ICD10: 02 E04.1 Signed out by: Vinicio Bazzi MD, Pathologist NPI- [id number] Performed by: Boo Garland, Oracle Application Architect ([facility]) Gross description: 01 30ML, RED, CLEAR /LCS FLAG LEGEND: L-Low Normal,H-High Normal,LL-Alert Low,HH-Alert High <-Panic Low,>-Panic High,A-Abnormal,AA-Critical Abnormal Performed at: [facility] [address] [place] [address] Abisai Trujillo MD, 02 ANTHONYJOSH [facility] [address] [place] [id number] Geoffrey Vann MD, Specimen Comment: [id number] Performed at: [address] [place], [place] [address] [address], [place], [place] [id number] MD Abisai Trujillo MD Phone: [phone]
== END | disposition home or self-care (01) ==
LOC: US 12:15
PROVIDERS: ATTEND Surgery
DX: E04.1 Nontoxic single thyroid nodule (principal); I11.9 Hypertensive heart disease without heart failure; Z90.710 Acquired absence of both cervix and uterus; Z98.890 Other specified postprocedural states
CPT/HCPCS: 10005; 10006; 60300; 76942; 88173; 88305

== ENCOUNTER 2019-02-09 07:10 | Outpatient (CLI) | payer OTHER ==
[2019-02-09] VITALS (11 sets, daily range): BP systolic 121–165; BP diastolic 62–78
[~2019-02-09] VITALS: Ht 149.9 cm; Wt 38.6 kg
[2019-02-09] MEDS ORDERED: HYDR-2868 PO (07:34)
[2019-02-09] MEDS ORDERED: ACET325T9 PO (07:34)
[2019-02-09] MEDS ORDERED: ATOR20TA58 PO (07:34)
[2019-02-09] MEDS ORDERED: ALLO100T PO (07:34)
[2019-02-09] MEDS ORDERED: POLY17PO29 PO (07:34)
[2019-02-09] MEDS ORDERED: ASPI-630 PO (07:34)
[2019-02-09 07:58] LABS: BASO # 0.1 x10^3/uL (0.0-0.2); BASO % 1 % (0-3); EOS # 0.2 x10^3/uL (0.0-0.7); EOS % 2 % (0-3); HEMATOCRIT 34.3 % (36.0-47.0); HEMOGLOBIN 11.3 g/dL (12.0-15.5); LYMPH # 1.3 x10^3/uL (1.0-4.8); LYMPH % 17 % (24-48); MEAN CORPUSCULAR HEMOGLOBIN 31 pg (25-35); MEAN CORPUSCULAR HGB CONC 33 g/dL (31-37); MEAN CORPUSCULAR VOLUME 93 fL (79-100); MONO # 0.6 x10^3/uL (0.0-1.1); MONO % 8 % (0-9); NEUT # 5.4 x10^3uL (1.8-7.7); NEUT % 72 % (31-73); PLATELET COUNT 359 x10^3/uL (140-400); RED BLOOD COUNT 3.68 x10^6/uL (3.50-5.40); RED CELL DISTRIBUTION WIDTH 15.6 % (11.5-14.5); WHITE BLOOD COUNT 7.5 x10^3/uL (4.0-11.0)
[2019-02-09 08:05] LABS: PROTHROMBIN TIME PATIENT 13.2 SEC (11.7-14.0)
[2019-02-09] MEDS ORDERED: LIDOCAINE WITH 8.4% SOD BICARB 3 ML DISP.SYRIN. ONE (08:19)
[2019-02-09] MEDS ORDERED: fentaNYL PF VIAL 100 MCG/2 ML VIAL ONE (08:46)
[2019-02-09] MEDS ORDERED: MIDAZOLAM HCL/PF 2 MG/2 ML VIAL. ONE (08:46)
[2019-02-09] MEDS ORDERED: LIDOCAINE WITH 8.4% SOD BICARB 3 ML DISP.SYRIN. IJ ONE (09:15)
[2019-02-09] MEDS ORDERED: fentaNYL PF VIAL 100 MCG/2 ML VIAL IV ONE (09:15)
[2019-02-09] MEDS ORDERED: MIDAZOLAM HCL/PF 2 MG/2 ML VIAL. IV ONE (09:15)
--- NOTE | 2019-02-09 09:20 | PDOC ---
BRIEF OPERATIVE NOTE Pre-Op Diagnosis MGUS Post-Op Diagnosis same Procedure Performed CT Bone Marrow biopsy Surgeon Clemente Anesthesia Type: Conscious Sedation Specimens Obtained 2 x 3cc aspirates and 1 x 10g core Complications No immediate KAVEH ISAAC MD Feb 09, 2019 09:20
--- NOTE | 2019-02-09 09:21 | PDOC1 ---
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 here for outpatient bone marrow biopsy Past Medical History Past Medical History see nursing pre-operative assessment Current Medications Current Medications Current Medications Lidocaine/Sodium Bicarbonate (Buffered Lidocaine 1%) 3 ml STK-MED ONCE .ROUTE ; Start 02/09/19 at 08:19; Stop 02/09/19 at 08:20; Status DC Midazolam HCl (Versed) 2 mg STK-MED ONCE .ROUTE ; Start 02/09/19 at 08:46; Stop 02/09/19 at 08:47; Status DC Fentanyl Citrate (Fentanyl 2ml Vial) 100 mcg STK-MED ONCE .ROUTE ; Start at 08:46; Stop 02/09/19 at 08:47; Status DC Lidocaine/Sodium Bicarbonate (Buffered Lidocaine 1%) 3 ml 1X ONCE IJ Last administered on 02/09/19at 09:14; Start 02/09/19 at 09:15; Stop 02/09/19 at 09:16 ; Status DC Midazolam HCl (Versed) 2 mg 1X ONCE IV Last administered on 02/09/19at 09:14; Start 02/09/19 at 09:15; Stop 02/09/19 at 09:16; Status DC Fentanyl Citrate (Fentanyl 2ml Vial) 100 mcg 1X ONCE IV Last administered on at 09:15; Start 02/09/19 at 09:15; Stop 02/09/19 at 09:16; Status DC Active Scripts Active Reported Miralax (Polyethylene Glycol 3350) 17 Gm Powd.pack 1 Packet PO DAILY Tylenol (Acetaminophen) 325 Mg Tablet 1 Tab PO PRN Q4HRS Aspirin 81 Mg Tab.chew 1 Tab PO DAILY Hydralazine Hcl 25 Mg Tablet 1 Tab PO BID Atorvastatin Calcium 20 Mg Tablet 1 Tab PO DAILY Allopurinol 100 Mg Tablet 1 Tab PO DAILY Amlodipine Besylate 10 Mg Tablet 10 Mg PO DAILY Amiodarone Hcl 200 Mg Tablet 200 Mg PO DAILY Allergies Allergies: Coded Allergies: No Known Drug Allergies (Unverified , 05/01/17) Physical Exam Vital Signs Vital Signs Date Time Temp Pulse Resp B/P (MAP) Pulse Ox O2 Delivery O2 Flow Rate FiO2 02/09/19 09:15 89 16 100 Nasal Cannula 2.0 02/09/19 07:00 98.3 149/67 (94) 98.3 Other see nursing pre-operative assessment Assessment Assessment MGUS Plan Plan CT bone Marrow biopsy KAVEH ISAAC MD Feb 09, 2019 09:21
--- NOTE | 2019-02-09 09:22 | PDOC ---
MODERATE SEDATION ASSESSMENT RISKS/ALTERNATIVES Risks/Alternatives Risks and alternatives of this type of sedation and procedure discussed with: RISK/ALTERNATIVES: Patient H & P ON CHART H & P H & P on chart and reviewed for co-morbid conditions and appropriate labs. H&P ON CHART: Yes STATUS PREG STATUS ASSESSED: Yes MEDS/ALLERGIES REVIEWED Meds/Allergies Reviewed Medications and Allergies including time and route of recently administered narcotics and sedatives. MEDS/ALLERGIES REVIEWED: Yes ASA RATING ASA RATING: III AIRWAY ASSESSMENT Airway Assessment Airway patency, oral function limitations, presence of caps, crowns, dentures, partials, and ability to extend neck assessed. AIRWAY ASSESSMENT: Yes MALLAMPATI SCORE MALLAMPATI SCORE: III PRE-SEDATION ASSESSMENT PRE-SEDATION ASSESSMENT: Yes KAVEH ISAAC MD Feb 09, 2019 09:22
--- NOTE | 2019-02-09 11:45 | NUR ---
Discharge Note: [facility] Discharge instructions and discharge home medications reviewed with Patient and daughter and a copy given. All questions have been answered and understanding verbalized. The following instructions and handouts were given: Follow up with Dr. Malone as scheduled. Dressing instructions. Discontinued lines and drains: Peripheral IV intact. Patient discharged to Home or Self Care with Family Member via Wheelchair
--- NOTE | 2019-02-10 08:51 | RAD ---
Procedure: CT-guided bone marrow aspiration and biopsy Clinical Indication: 79-year-old with MGUS Sedation: Conscious sedation was administered with a total intraprocedural [id number] time of 11 minutes. The patient was monitored by a qualified independent observer throughout the time of sedation. Please refer to the medical record for exact doses of medications utilized to achieve moderate sedation. Antibiotics: None Fluoro Time: Not applicable Contrast: None Sterility: The procedure was performed in its entirety using appropriate elements of sterile technique. Consent: The procedure was explained in its entirety to the patient or the patients designated financial service representative by a member of the treatment team, including a discussion of the risks, benefits and commonly accepted alternatives to the procedure, as well as the expected consequences of no therapy whatsoever. Discussion of the risks included, but was not limited to, those that are most frequent and those that are rare but possibly severe or life-threatening, as well as the possibility of unforeseen complications. Technique and Findings: Following informed consent, the patient was prepped and draped in usual sterile fashion. Preliminary CT scan of the area of interest was performed. 1% Lidocaine was used to achieve local anesthesia. Under periodic CT surveillance, an 11-gauge needle was advanced through the cortex of the posterior superior iliac spine and 2 separate 2 mL marrow aspirates were obtained and preserved on site by the pathology laboratory technologist. A single 11-gauge core biopsy specimen was then obtained and preserved in formalin. The needle was then removed and hemostasis was achieved with manual compression. Complications: No immediate Impression: 1. CT-guided bone marrow aspiration and biopsy as described PQRS Compliance Statement: One or more of the following individualized dose reduction techniques were utilized for this examination: 1. Automated exposure control 2. Adjustment of the mA and/or kV according to patient size 3. Use of iterative reconstruction technique
--- NOTE | 2019-02-25 18:06 | PATHOLOGY ---
[facility] Accession Number: [id number] . 01 Material submitted: . PART A: BONE MARROW BIOPSY PART B: BONE MARROW CLOT PART C: BONE MARROW ASPRIATE SLIDES PART D: PERIPHERAL BLOOD PART E: BONE MARROW FLOW . 01 Clinical history: . MGUS . 02 Diagnosis: Peripheral smear: - Normocytic normochromic anemia, mild. . Bone marrow, aspirate smears, clot sections, and core biopsy: - Normocellular to focally mildly hypercellular marrow showing trilineage hematopoiesis, no significant dyspoiesis, and a mild polyclonal plasmacytosis with a small monoclonal plasma cell population identified by flow cytometric analysis. See description and comment. - Mildly increased reticuloendothelial iron stores. LBQ/02/25/2019 . 02 Comment: The peripheral smear shows a mild normochromic normocytic anemia. The bone marrow is normocellular to focally mildly hypercellular and shows trilineage hematopoiesis, no significant dyspoiesis, and a mild polyclonal plasmacytosis. Plasma cells comprise approximately 10- 15% of nucleated marrow cells. Flow cytometry identified a small population of monoclonal plasma cells showing cytoplasmic kappa light chain restriction representing 24% of total plasma cells. As such, the monoclonal plasma cell population in the marrow would appear to comprise no more than 5% of nucleated marrow cells. The case is also examined by Dr. Granados, who concurs with the diagnosis. (JPM/db; 02/24/2019) . Special stains performed: Iron stain on C and B1 and B2 Reticulin stain on A1 . Immunoperoxidase stains for CD138 on A1, B1 and B2 In situ hybridization for kappa and lambda light chain on A1, B1 and B2 . 02 Electronically signed: . Prabhu Sierra MD, Pathologist NPI- [id number] . 01 Gross description: . A. The specimen is received in formalin, labeled "Jeane Rome BM BX". Received blood coagulum measuring 1.2 x 0.9 x 0.1 cm in aggregate dimensions of six a slight amount of light winston bone measuring 0.4 x 0.3 x 0.2 cm area specimen is submitted entirely in cassette A1, following light decalcification. . B. The specimen is received in formalin, labeled "Jeane Rome BM aspirate clot". Received is blood coagulum measuring 3.0 x 2.0 x 0.4 cm in aggregate dimensions. The specimen is filtered and entirely submitted in cassettes B1 and B2. (CAA; 02/09/2019) QAC/QAC . 02 Microscopic: . The WBC count is 7.5 K/CMM, and the automated WBC differential reveals 72% neutrophils, 17% lymphs, 8% monos, 2% eos, and 1% baso. The RBC count is 3.68 M/CMM, hemoglobin 11.3 G/DL, hematocrit 34.3%, MCV 93 FL, MCH 31 PG, MCHC 33 G/DL, and the RDW is 15.6%. The platelet count is 359 K/CMM. Additional laboratory studies are obtained from Dr. Malone' office. Serum protein electrophoresis shows a restrictive band (M-spike) migrating in the gamma region of approximately 0.7 G/DL. Serum immunofixation shows an IgG kappa monoclonal band. The serum IgA is 308 MG/DL, IgG 1723 MG/DL, and IgM 124 MG/DL. The serum kappa free light chain is 70.7 MG/L, lambda free light chain 26.8 MG/L, and the kappa/lambda free light chain ratio is 2.64. Urine protein electrophoresis shows a monoclonal band in the gamma globulin region. . Peripheral Blood: The peripheral smear is reviewed. The WBC count is normal. The WBC differential reveals a predominance of segmented neutrophils, with smaller populations of lymphocytes and monocytes and occasional eosinophils noted. Neutrophils do not show dysplastic changes. There is no significant neutrophilic left shift. There are no circulating blasts. There is no leukoerythroblastic reaction. The lymphocyte population consists predominantly of small lymphocytes. There are several large granular lymphocytes noted. There are no circulating plasma cells. Red blood cells predominantly appear normochromic and normocytic. Red blood cells show mild poikilocytosis with several ovalocytes and a few spiculated red blood cells and red blood cell fragments noted. There is no obvious evidence of red blood cell rouleaux. Platelets are normal in number with several large platelets noted. . Bone Marrow Aspirate: Two Hernández's-stained and one iron-stained aspirate smears are examined. The smears contain multiple marrow particles. The M/E ratio is within normal range. Erythroid maturation predominantly appears normoblastic. There are no megaloblastic or significant dysplastic changes. Granulopoiesis qualitatively appears normal. There is no significant left shift or dysplastic changes. There is no increase of blasts. Megakaryocytes appear adequate in number and are of variable ploidy. There are scattered admixed plasma cells. There are foci of mild plasmacytosis showing between 5% and 10% plasma cells. Other areas show a smaller proportion of plasma cells. The plasma cells vary from normal size to mildly enlarged. The latter possess enlarged eccentric nuclei containing indistinct nucleoli. There are no areas of sheet-like replacement by plasma cells. There is no atypical lymphoreticular infiltrate. There are no cells foreign to the marrow. The iron stain contains a few marrow particles showing adequate iron stores. No ringed sideroblasts are identified. . Bone Marrow Biopsy and Clot Sections: Sections of the bone marrow biopsy reveal segments of blood clot containing several marrow particles and a few bony spicules. There are several fatty particles. Most of the marrow particles range between 10-20% and 40% cellular. The clot sections contain multiple marrow particles. There are once again several fatty particles. Most of the particles range between 10-20% and 40-50% cellular. There is a good admixture of erythroid and granulocytic precursors, which are present in varying stages of maturation. There is no increase of blasts. Megakaryocytes appear adequate and are of variable ploidy. There are scattered admixed plasma cells which are occasionally present in small loose clusters. There are no large solid aggregates or areas of sheet-like replacement by plasma cells. The plasma cells appear relatively mature or mildly enlarged and atypical. There are no abnormal lymphoid aggregates, granulomas, or cells foreign to the marrow. To confirm flow cytometric findings and characterize the target cells in a tissue architectural context, immunoperoxidase stains for CD138 and in situ hybridization for kappa and lambda light chain are obtained and yield the following results: . CD138 (A1) - Plasma cells positive having a scattered interstitial and focal perivascular distribution; plasma cells overall comprise approximately 10- 15% of nucleated marrow cells. . [place] and lambda SHARONA (A1) - Plasma cells appear polyclonal with a modest increase of the kappa lambda ratio. . CD138 (B1) - Plasma cells positive having a scattered interstitial and focal perivascular distribution; plasma cells overall comprise approximately 10- 15% of nucleated marrow cells. . [place] and lambda SHARONA (B1) - Plasma cells appear polyclonal with a modest increase of the kappa/lambda ratio. . CD138 (B2) - Plasma cells positive having a scattered interstitial and focal perivascular distribution; plasma cells overall comprise approximately 10-15% of nucleated marrow cells. . [place] and lambda SHARONA (B2) - Positive cells appear polyclonal with a modest increase of the kappa lambda ratio. . Iron stains of the clot sections show mildly increased reticuloendothelial iron stores. No ringed sideroblasts are identified. A reticulin stain obtained on the biopsy shows no significant reticulin fibrosis. (JPM/db; 02/24/2019) . Special studies: Bone marrow submitted for flow cytometric analysis has a viability of 98.3%. Granulocytes comprise 81.5% of total cells and show phenotypic evidence of maturation. Monocytes comprise 3.0% of total cells and co-express CD14 and CD64. CD45 dim, CD34 positive cells comprise 1.1% of total cells. Lymphocytes comprise 8.0% of total cells. T-cells comprise 70% of lymphoid cells and show a CD4/CD8 ratio of 1.0. NK-cells comprise 12% of lymphoid cells. Mature B-cells comprise 13% of lymphoid cells and are polyclonal with a kappa:lambda ratio of 1.5. Plasma cells comprise 1.1% of total cells. There is a population of monoclonal plasma cells, comprising 24% of total plasma cells and 0.3% of total cells which are CD19, CD38, CD45, CD56, CD138, and cytoplasmic kappa light chain positive and which are negative for CD20 and CD117. . Bone marrow submitted for routine cytogenetic analysis shows a normal female karyotype in all cells analyzed. . 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 . (JPM:cardiac nurse specialist:db; 02/24/2019) . 02 Pathologist provided ICD-10: D64.9, D72.822 . 02 CPT . 960496, 374634, 758284, 549752, 699276, 817569, 476373, 023070, 321000, [id number], [id number], [id number] Specimen Comment: A courtesy copy of this report has been sent to Specimen Comment: [phone], , . Specimen Comment: Report sent to ,DR MALONE / DR CARRION Specimen Comment: A duplicate report has been generated due to demographic updates. Performed at: 01 [facility] [address] [facility] [address], [place] [id number] MD Abisai Trujillo MD Phone: [phone] Performed at: 02 [facility] [address] [place], [place] [id number] MD Prabhu Sierra MD Phone: [phone]
== END 2019-02-09 11:45 | disposition home or self-care (01) ==
LOC: INTRAD 07:10
PROVIDERS: ATTEND Internal Medicine Hematology & Oncology
DX: D47.2 Monoclonal gammopathy (principal); Z79.899 Other long term (current) drug therapy
CPT/HCPCS: 36415; 38222; 77012; 85025; 85610; 88184; 88185; 88237; 88305; 88311; 88313; 88342; 88364; 88365; 88367; 88374; 99152; J2250; J3010

== ENCOUNTER 2019-04-28 20:44 | Inpatient (IN) | payer OTHER ==
[~2019-04-28] VITALS: Ht 124.5 cm; Wt 40.4 kg
[~2019-04-28 20:44] MED LIST changes: +ACET325T9 PO; +ASPI-630 PO; +ATOR20TA58 PO; +HYDR-2868 PO; +POLY17PO29 PO
[2019-04-28] MEDS ORDERED: methylPREDNISolone SOD SUCC PF 125 MG/2 ML VIAL. IV ONE (22:00)
[2019-04-28] MEDS ORDERED: IPRATRPIUM/ALBUTEROL 0.5/2.5MG 3 ML NEBU. NEB ONE (22:00)
--- NOTE | 2019-04-28 22:49 | PHYS DOC ---
Past Medical History Past Medical History: High Cholesterol, Hypertension, Other Additional Past Medical Histor: gout Past Surgical History: No Surgical History Alcohol Use: None Drug Use: None Adult General Chief Complaint Chief Complaint: ABDOMINAL PAIN HPI HPI Patient is a 79 year old female with history of dementia who brought in by her daughter because of cough and chest congestion. Patient has history of C2 fracture with permanent c-collar placement patient has had cough for the last 1 week and episodes of posttussive vomiting and complaining of epigastric pain during episodes of vomiting and cough. Patient decrease of appetite and activity. Patient did not have diarrhea, constipation, fever and chills, sick contact. Review of Systems Review of Systems Constitutional: Denies fever or chills [] Eyes: Denies change in visual acuity, redness, or eye pain [] HENT: Denies nasal congestion or sore throat [] Respiratory: Coarse cough and shortness of breath Cardiovascular: No additional information not addressed in HPI [] GI: Denies abdominal pain, nausea, vomiting, denies bloody stools or diarrhea [] : Denies dysuria or hematuria [] Musculoskeletal: Denies back pain or joint pain [] Integument: Denies rash or skin lesions [] Neurologic: Denies headache, focal weakness or sensory changes [] Endocrine: Denies polyuria or polydipsia [] All other systems were reviewed and found to be within normal limits, except as documented in this note. Current Medications Current Medications Current Medications Medications (Trade) Dose Ordered Sig/Camilo Start Time Stop Time Status Last Admin Dose Admin Albuterol/ Ipratropium (Duoneb) 3 ml 1X ONCE 04/28/19 22:00 04/28/19 22:01 DC 04/28/19 22:46 3 ML Methylprednisolone Sodium Succinate (SOLU-Medrol 125MG VIAL) 125 mg 1X ONCE 04/28/19 22:00 04/28/19 22:01 DC 04/28/19 22:22 125 MG Allergies Allergies Allergies Coded Allergies Type Severity Reaction Last Updated Verified No Known Drug Allergies 05/01/17 No Physical Exam Physical Exam Constitutional: Well nourished, no acute distress, non-toxic appearance. [] HENT: Normocephalic, atraumatic, oropharynx moist, no oral exudates, nose normal. [] Eyes: PERRLA, EOMI, conjunctiva normal, no discharge. [] Neck: C-collar in place Cardiovascular:Heart rate regular rhythm, no murmur [] Lungs & Thorax: Bilateral breath sounds clear to auscultation [] Abdomen: Bowel sounds normal, soft, no tenderness, no masses, no pulsatile masses. [] Skin: Warm, dry, no erythema, no rash. [] Back: No tenderness, no CVA tenderness. [] Extremities: No tenderness, no cyanosis, no clubbing, ROM intact, no edema. [] Neurologic: Alert and oriented X 1, normal motor function, normal sensory function, no focal deficits noted. [] Psychologic: Affect normal Current Patient Data Vital Signs Vital Signs Date Time Temp Pulse Resp B/P (MAP) Pulse Ox O2 Delivery O2 Flow Rate FiO2 04/28/19 23:04 92 19 167/133 (144) 96 Room Air 04/28/19 21:00 98.6 98.6 Lab Values Laboratory Tests Test 04/28/19 22:40 04/28/19 23:04 White Blood Count 12.9 x10^3/uL (4.0-11.0) H Red Blood Count 3.07 x10^6/uL (3.50-5.40) L Hemoglobin 9.5 g/dL (12.0-15.5) L Hematocrit 28.8 % (36.0-47.0) L Mean Corpuscular Volume 94 fL (79-100) Mean Corpuscular Hemoglobin 31 pg (25-35) Mean Corpuscular Hemoglobin Concent 33 g/dL (31-37) Red Cell Distribution Width 15.5 % (11.5-14.5) H Platelet Count 302 x10^3/uL (140-400) Neutrophils (%) (Auto) 85 % (31-73) H Lymphocytes (%) (Auto) 9 % (24-48) L Monocytes (%) (Auto) 5 % (0-9) Eosinophils (%) (Auto) 0 % (0-3) Basophils (%) (Auto) 1 % (0-3) Neutrophils # (Auto) 10.9 x10^3uL (1.8-7.7) H Lymphocytes # (Auto) 1.1 x10^3/uL (1.0-4.8) Monocytes # (Auto) 0.7 x10^3/uL (0.0-1.1) Eosinophils # (Auto) 0.1 x10^3/uL (0.0-0.7) Basophils # (Auto) 0.1 x10^3/uL (0.0-0.2) Sodium Level 139 mmol/L (136-145) Potassium Level 2.6 mmol/L (3.5-5.1) *L Chloride Level 99 mmol/L (98-107) Carbon Dioxide Level 30 mmol/L (21-32) Anion Gap 10 (6-14) Blood Urea Nitrogen 14 mg/dL (7-20) Creatinine 1.0 mg/dL (0.6-1.0) Estimated GFR (Cockcroft-Gault) 64.4 BUN/Creatinine Ratio 14 (6-20) Glucose Level 110 mg/dL (70-99) H Lactic Acid Level 1.8 mmol/L (0.4-2.0) Calcium Level 10.6 mg/dL (8.5-10.1) H Total Bilirubin 1.5 mg/dL (0.2-1.0) H Aspartate Amino Transferase (AST) 164 U/L (15-37) H Alanine Aminotransferase (ALT) 231 U/L (14-59) H Alkaline Phosphatase 181 U/L (46-116) H Creatine Kinase 64 U/L (26-192) Troponin I Quantitative 0.024 ng/mL (0.000-0.055) JE-Irh-L-Type Natriuretic Peptide 1120 pg/mL (0-449) H Total Protein 7.1 g/dL (6.4-8.2) Albumin 2.5 g/dL (3.4-5.0) L Albumin/Globulin Ratio 0.5 (1.0-1.7) L Lipase 94 U/L (73-393) Urine Collection Type U cath Urine Color Nguyen Urine Clarity Clear Urine pH 6.0 Urine Specific [place] 1.015 Urine Protein 100 mg/dL (NEG-TRACE) Urine Glucose (UA) Negative mg/dL (NEG) Urine Ketones (Stick) Negative mg/dL (NEG) Urine Blood Negative (NEG) Urine Nitrite Negative (NEG) Urine Bilirubin Small (NEG) Urine Urobilinogen Dipstick 4.0 mg/dL (0.2 mg/dL) Urine Leukocyte Esterase Negative (NEG) Urine RBC 0 /HPF (0-2) Urine WBC Occ /HPF (0-4) Urine Squamous Epithelial Cells Few /LPF Urine Renal Epithelial Cells Few /LPF Urine Bacteria 0 /HPF (0-FEW) Urine Hyaline Casts Few /HPF Urine Mucus Mod /LPF Laboratory Tests 04/28/19 22:40 Laboratory Tests 04/28/19 22:40 EKG EKG EKG interpreted by me. EKG at 2259 showed normal sinus rhythm at rate of 88, low-voltage QRS, poor R-wave progress in anteroseptal leads, no acute ST and T- wave abnormalities. Radiology/Procedures Radiology/Procedures [facility] [address] [place] [address] IMAGING REPORT Signed PATIENT: KIRK SILVA ACCOUNT: [id number] : 1940 LOCATION: ER AGE: 79 SEX: F EXAM STATUS: REG ER ORD. PHYSICIAN: AFIA BECKER MD REASON: cough and congestion PROCEDURE: PORTABLE CHEST 1V AP portable chest radiograph 04/28/2019 Clinical History: Cough and congestion. An AP erect portable digital radiograph of the chest was obtained. Comparison study is dated 05/29/2018. Patient is post right shoulder joint replacement. The cardiac silhouette is mildly enlarged. Atherosclerotic calcification thoracic aorta is seen. The thoracic aorta is tortuous. No acute pulmonary infiltrate is seen. No pleural effusion or pneumothorax is noted. There is diffuse osteopenia the visualized bony structures. Degenerative changes are seen involving the thoracic spine along the left shoulder. IMPRESSION: No acute abnormality is seen. Electronically signed by: Dominik Valle MD (04/28/2019 11:49 PM) [facility] DICTATED and SIGNED BY: DOMINIK VALLE MD DATE: 04/28/[id number] [id number] IMAGING REPORT Signed PATIENT: KIRK SILVA ACCOUNT: [id number] : 1940 LOCATION: ER AGE: 79 SEX: F EXAM STATUS: REG ER ORD. PHYSICIAN: AFIA BECKER MD REASON: epigastric pain, elevated liver function tests PROCEDURE: ABDOMEN LTD Indication:Epigastric pain. Elevated liver function tests TECHNIQUE: Grayscale, color Doppler and spectral waveform is of the abdomen obtained. COMPARISON:None FINDINGS: Visualized pancreas within normal limits. IVC within normal limits. Liver measures 17 cm in longest dimension and is normal in size and echogenicity. No gallstones, pericholecystic fluid or gallbladder wall thickening. CBD measures 6 mm in diameter and is within normal limits. Main portal vein is patent. Right kidney measures 8.6 cm in length without hydronephrosis. Hypoechoic 1.2 cm lesion is seen in the right kidney. IMPRESSION: 1. No cholelithiasis or sonographic evidence of acute cholecystitis. 2. No sonographic signs of hepatic steatosis. 3. Right renal lesion most likely a complicated renal cyst. Short-term follow-up ultrasound of the right kidney recommended. Electronically signed by: Gómez Ruiz DO (04/29/2019 1:08 AM) [facility] DICTATED and SIGNED BY: GÓMEZ RUIZ DO DATE: 04/29/19 0108 Course & Med Decision Making Course & Med Decision Making Pertinent Labs and Imaging studies reviewed. (See chart for details) Evaluation of patient in ER showed 79-year-old female patient with c-collar in place after chronic C2 fracture brought in because of cough and congestion and episodes of posttussive vomiting and abdominal pain after cough. Patient had potassium of 2.6 and treated with IV potassium. Patient also had elevation of liver function tests and had unremarkable ultrasound of gallbladder. Patient requiring admission for further evaluation and treatment. Discussed with Dr. Caceres who is in agreement with admission. Discussed findings and plan with patient and family, who acknowledge understanding and agreement. Dragon Disclaimer Dragon Disclaimer This electronic medical record was generated, in whole or in part, using a voice recognition dictation system. Departure Departure Impression: Primary Impression: Hypokalemia Additional Impressions: Anemia Acute bronchitis Hypercalcemia Elevated liver function tests Hypoalbuminemia C2 cervical fracture Dementia Disposition: 09 ADMITTED INPATIENT (at 2335) Admitting Physician: Falguni Caceres Condition: IMPROVED Referrals: ASHLEE CARRION MD (PCP) Problem Qualifiers Additional Impressions: Anemia Anemia type: unspecified type Qualified Codes: D64.9 - Anemia, unspecified Acute bronchitis Bronchitis organism: unspecified organism Qualified Codes: J20.9 - Acute bronchitis, unspecified C2 cervical fracture Encounter type: sequela Fracture type: closed Fracture morphology: unspecified fracture morphology Fracture alignment: nondisplaced Qualified Codes: S12.101S - Unspecified nondisplaced fracture of second cervical vertebra, sequela Dementia Dementia type: unspecified type AFIA BECKER MD April 28, 2019 22:49
[2019-04-28 22:54] LABS: BASO # 0.1 x10^3/uL (0.0-0.2); BASO % 1 % (0-3); EOS # 0.1 x10^3/uL (0.0-0.7); EOS % 0 % (0-3); HEMATOCRIT 28.8 % (36.0-47.0); HEMOGLOBIN 9.5 g/dL (12.0-15.5); LYMPH # 1.1 x10^3/uL (1.0-4.8); LYMPH % 9 % (24-48); MEAN CORPUSCULAR HEMOGLOBIN 31 pg (25-35); MEAN CORPUSCULAR HGB CONC 33 g/dL (31-37); MEAN CORPUSCULAR VOLUME 94 fL (79-100); MONO # 0.7 x10^3/uL (0.0-1.1); MONO % 5 % (0-9); NEUT # 10.9 x10^3uL (1.8-7.7); NEUT % 85 % (31-73); PLATELET COUNT 302 x10^3/uL (140-400); RED BLOOD COUNT 3.07 x10^6/uL (3.50-5.40); RED CELL DISTRIBUTION WIDTH 15.5 % (11.5-14.5); WHITE BLOOD COUNT 12.9 x10^3/uL (4.0-11.0)
[2019-04-28 23:15] LABS: ALBUMIN 2.5 g/dL (3.4-5.0); ALBUMIN/GLOBULIN RATIO 0.5 (1.0-1.7); CALCIUM 10.6 mg/dL (8.5-10.1); GFR 64.4; TOTAL BILIRUBIN 1.5 mg/dL (0.2-1.0); TOTAL PROTEIN 7.1 g/dL (6.4-8.2)
[2019-04-28 23:17] LABS: POTASSIUM 2.6 mmol/L (3.5-5.1)
[2019-04-28 23:17] LABS: BILIRUBIN,URINE SMALL (NEG); CLARITY,URINE CLEAR; COLOR,URINE AMBER; NITRITE,URINE NEGATIVE (NEG); PROTEIN,URINE 100 mg/dL (NEG-TRACE)
[2019-04-28 23:35] LABS: BACTERIA,URINE 0 /HPF (0-FEW); RBC,URINE 0 /HPF (0-2); WBC,URINE OCC /HPF (0-4)
[2019-04-28 23:36] LABS: HYALINE CASTS, URINE FEW /HPF; SQUAMOUS EPITHELIAL CELL,UR FEW /LPF
--- NOTE | 2019-04-28 23:51 | RAD ---
AP portable chest radiograph 04/28/2019 Clinical History: Cough and congestion. An AP erect portable digital radiograph of the chest was obtained. Comparison study is dated 05/29/2018. Patient is post right shoulder joint replacement. The cardiac silhouette is mildly enlarged. Atherosclerotic calcification thoracic aorta is seen. The thoracic aorta is tortuous. No acute pulmonary infiltrate is seen. No pleural effusion or pneumothorax is noted. There is diffuse osteopenia the visualized bony structures. Degenerative changes are seen involving the thoracic spine along the left shoulder. IMPRESSION: No acute abnormality is seen. Electronically signed by: Dominik Valle MD (04/28/2019 11:49 PM) [facility]
[2019-04-29] MEDS ORDERED: IV NORMAL SALINE 1000ML BAG 1,000 ML IV ONE
[2019-04-29] MEDS: POTASSIUM CHLORIDE 10MEQ 100 ML IV SCH ×2 (00:09→01:18)
[2019-04-29] MEDS ORDERED: ONDANSETRON PF 4 MG/2 ML VIAL. IV PRN ×2 (01:00→09:00)
--- NOTE | 2019-04-29 01:11 | RAD ---
Indication:Epigastric pain. Elevated liver function tests TECHNIQUE: Grayscale, color Doppler and spectral waveform is of the abdomen obtained. COMPARISON:None FINDINGS: Visualized pancreas within normal limits. IVC within normal limits. Liver measures 17 cm in longest dimension and is normal in size and echogenicity. No gallstones, pericholecystic fluid or gallbladder wall thickening. CBD measures 6 mm in diameter and is within normal limits. Main portal vein is patent. Right kidney measures 8.6 cm in length without hydronephrosis. Hypoechoic 1.2 cm lesion is seen in the right kidney. IMPRESSION: 1. No cholelithiasis or sonographic evidence of acute cholecystitis. 2. No sonographic signs of hepatic steatosis. 3. Right renal lesion most likely a complicated renal cyst. Short-term follow-up ultrasound of the right kidney recommended. Electronically signed by: Galen Ruiz DO (04/29/2019 1:08 AM) [facility]
--- NOTE | 2019-04-29 02:30 | NUR ---
The patient, KIRK SILVA, 79 y/o, F admitted by MILAGRO FLORES MD, was given written information regarding hospital policies, unit procedures and contact persons. Valuables were checked and all questions answered. Pt's daughter to stay with pt [email or web address].
[2019-04-29] MEDS: IV NORMAL SALINE 1000ML BAG 1,000 ML IV SCH ×2 (02:31→08:31)
[2019-04-29] MEDS ORDERED: ACET325T9 PO (02:41)
[2019-04-29 03:31] VITALS: BP 162/84
--- NOTE | 2019-04-29 05:59 | EKG ---
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
[2019-04-29 07:10] VITALS: BP 164/80
[2019-04-29] MEDS ORDERED: ACETAMINOPHEN 325 MG TABLET. PO SCH (09:00)
[2019-04-29] MEDS ORDERED: LABETALOL 20 MG/4 ML DISP.SYRIN. IVP PRN (09:00)
[2019-04-29] MEDS ORDERED: ASPIRIN CHEWABLE 81 MG TABLET. PO SCH (09:00)
[2019-04-29] MEDS ORDERED: AMIODARONE HCL 200 MG TABLET. PO SCH (09:00)
[2019-04-29] MEDS ORDERED: ALLOPURINOL 100 MG TABLET. PO SCH (09:00)
[2019-04-29] MEDS ORDERED: amLODIPine BESYLATE 10 MG TABLET PO SCH (09:00)
[2019-04-29] MEDS ORDERED: ACETAMINOPHEN 500 MG TABLET PO PRN (09:00)
[2019-04-29] MEDS ORDERED: POTASSIUM CHLORIDE 20 MEQ TABLET.ER. PO ONE ×3 (09:30→14:30)
[2019-04-29] MEDS ORDERED: hydrALAZINE 25 MG TABLET PO SCH (09:30)
[2019-04-29] MEDS ORDERED: POTA20TA4 PO (10:41)
--- NOTE | 2019-04-29 10:50 | PDOC1 ---
History and Physical Date of Admission Date of Admission DATE: 04/29/19 TIME: 10:43 Identification/Chief Complaint Chief Complaint chest congestion and mild abdominal pain Source Source: Caregiver, Chart review, Patient History of Present Illness History of Present Illness 79-year-old -[place] female who lives at home with family, came to the ER last because of chest congestion and some mild abdominal pain. She thought it was gas, she is feeling better. But admitted because of elevated LFTs in 100- 200s, no history of hepatitis or alcoholism. Ultrasound does not show any gallbladder disease or fatty liver. Also admitted because of critical hypokalemia 2.6. She admits that she hasn't been eating lately. Denies any diarrhea vomiting. Got 20 KCl at the ER. I'm getting 60 more and advising 20 by mouth once a day and advised her to increase oral intake. We'll consult GI regarding elevated LFTs and maybe check for hepatitis panel if needed. Otherwise she wants to go home I think she can actually go home if no further workup here or with repeat LFTs by PCP and the rest can be done as outpatient. Chest x-ray is negative for any pneumonia. She feels better with regards to chest congestion. WBC 12, platelets adequate, BP on the high side and I have re conciled home meds. Past medical history hypertension dyslipidemia hypothyroidism full Code Past Medical History Cardiovascular: HTN GI: No pertinent hx Heme/Onc: No pertinent hx Hepatobiliary: No pertinent hx Musculoskeletal: low back pain Rheumatologic: No pertinent hx Infectious disease: No pertinent hx, Gonorrhea Past Surgical History Past Surgical History: Hysterectomy Family History Family History: No Significant, Hypertension Social History Smoke: No ALCOHOL: none Drugs: None Current Problem List Problem List Problems Medical Problems: (1) Acute bronchitis Status: Acute (2) Anemia Status: Acute (3) C2 cervical fracture Status: Acute (4) Dementia Status: Acute (5) Elevated liver function tests Status: Acute (6) Hypercalcemia Status: Acute (7) Hypoalbuminemia Status: Acute Current Medications Current Medications Current Medications Albuterol/ Ipratropium (Duoneb) 3 ml 1X ONCE NEB Last administered on at 22:46; Start 04/28/19 at 22:00; Stop 04/28/19 at 22:01; Status DC Methylprednisolone Sodium Succinate (SOLU-Medrol 125MG VIAL) 125 mg 1X ONCE IV Last administered on 04/28/19at 22:22; Start 04/28/19 at 22:00; Stop 04/28/19 at 22:01; Status DC Potassium Chloride/Water 100 ml @ 100 mls/hr Q1H IV Last administered on 04/29/19at 01:18; Start 04/29/19 at 00:00; Stop 04/29/19 at 01:59; Status DC Sodium Chloride 1,000 ml @ 125 mls/hr 1X ONCE IV Last administered on 04/29/19at 00:10; Start 04/29/19 at 00:00; Stop 04/29/19 at 07:59; Status DC Ondansetron HCl (Zofran) 4 mg PRN Q8HRS PRN IV NAUSEA/VOMITING 1ST CHOICE; Start 04/29/19 at 01:00; Stop 04/29/19 at 08:53; Status DC Sodium Chloride 1,000 ml @ 100 mls/hr Q10H IV Last administered on 04/29/19at 08:31; Start 04/29/19 at 01:00; Stop 04/30/19 at 00:59 Ondansetron HCl (Zofran) 4 mg PRN Q6HRS PRN IV NAUSEA/VOMITING 1ST CHOICE; Start 04/29/19 at 09:00 Labetalol HCl (Normodyne Iv Push) 10 mg PRN Q2HR PRN IVP HYPERTENSION; Start 04/29/19 at 09:00 Acetaminophen (Tylenol) 500 mg PRN Q6HRS PRN PO MILD PAIN / TEMP; Start 04/29/19 at 09:00 Potassium Chloride (Klor-Con) 20 meq 1X ONCE PO ; Start 04/29/19 at 11:30; Stop 04/29/19 at 11:31 Potassium Chloride (Klor-Con) 40 meq 1X ONCE PO ; Start 04/29/19 at 09:30; Stop 04/29/19 at 09:31; Status DC Potassium Chloride (Klor-Con) 20 meq DAILYWBKFT PO ; Start 04/30/19 at 08:00 Acetaminophen (Tylenol) 500 mg PRN Q6HRS PO ; Start 04/29/19 at 09:00; Status UNV Allopurinol (Zyloprim) 100 mg DAILY PO ; Start 04/29/19 at 09:00 Amiodarone HCl (Cordarone) 200 mg DAILY PO ; Start 04/29/19 at 09:00 Amlodipine Besylate (Norvasc) 10 mg DAILY PO ; Start 04/29/19 at 09:00 Aspirin (Children'S Aspirin) 81 mg DAILY PO ; Start 04/29/19 at 09:00 Atorvastatin Calcium (Lipitor) 20 mg QHS PO ; Start 04/29/19 at 21:00 Hydralazine HCl (Apresoline) 25 mg BID PO ; Start 04/29/19 at 09:30 Polyethylene Glycol (miraLAX PACKET) 17 gm PRN DAILY PRN PO CONSTIPATION; Start 04/30/19 at 09:00 Active Scripts Active Klor-Con M20 (Potassium Chloride) 20 Meq Tab.er.prt 20 Meq PO DAILYWBKFT MDD 1 7 Days Reported Tylenol (Acetaminophen) 325 Mg Tablet 500 Mg PO PRN Q6HRS Miralax (Polyethylene Glycol 3350) 17 Gm Powd.pack 1 Packet PO DAILY PRN Aspirin 81 Mg Tab.chew 1 Tab PO DAILY Hydralazine Hcl 25 Mg Tablet 1 Tab PO BID Atorvastatin Calcium 20 Mg Tablet 1 Tab PO DAILY Allopurinol 100 Mg Tablet 1 Tab PO DAILY Amlodipine Besylate 10 Mg Tablet 10 Mg PO DAILY Amiodarone Hcl 200 Mg Tablet 200 Mg PO DAILY Allergies Allergies: Coded Allergies: No Known Drug Allergies (Unverified , 05/01/17) ROS Review of System A 14 point ROS was completed with the following noted as positive: Other systems reviewed and negative. \CONSTITUTIONAL: No fever or chills EYES: No recent changes SKIN: No rash or itching CARDIOVASCULAR: No chest pain, syncope, palpitations, or edema RESPIRATORY: No SOB or cough GASTROINTESTINAL: No nausea, vomiting or abdominal pain NEUROLOGICAL: No headaches or weakness ENDOCRINE: No cold or heat intolerance GENITOURINARY: No urgency or frequency of urination MUSCULOSKELETAL: No back pain or joint pain LYMPHATICS: No enlarged lymph nodes PSYCHIATRIC: No anxiety or depression Physical Exam General: Alert, Oriented X3, Cooperative, No acute distress HEENT: Atraumatic, PERRLA, EOMI Lungs: Clear to auscultation, Normal air movement Heart: S1S2, RRR, no thrills, no rubs, no gallops, no murmurs Cardiovascular: S1, S2 Abdomen: Soft, No tenderness, Other (normoactive bowel sounds) Rectal Exam: not examined PELVIC: Nml ext genitalia Extremities: No clubbing, No cyanosis, No edema, Normal pulses, No tenderness/swelling Skin: No rashes, No breakdown, No significant lesion Neuro: Normal gait, Normal speech, Strength at 5/5 X4 ext, Normal tone, Sensation intact, Cranial nerves 3-12 NL, Reflexes 2+ Psych/Mental Status: Mental status NL, Mood NL Vitals Vitals Vital Signs Date Time Temp Pulse Resp B/P (MAP) Pulse Ox O2 Delivery O2 Flow Rate FiO2 04/29/19 08:00 Room Air 04/29/19 07:10 98.3 89 16 164/80 (108) 100 98.3 Labs Labs Laboratory Tests Test 04/28/19 22:40 04/28/19 23:04 White Blood Count 12.9 x10^3/uL (4.0-11.0) Red Blood Count 3.07 x10^6/uL (3.50-5.40) Hemoglobin 9.5 g/dL (12.0-15.5) Hematocrit 28.8 % (36.0-47.0) Mean Corpuscular Volume 94 fL (79-100) Mean Corpuscular Hemoglobin 31 pg (25-35) Mean Corpuscular Hemoglobin Concent 33 g/dL (31-37) Red Cell Distribution Width 15.5 % (11.5-14.5) Platelet Count 302 x10^3/uL (140-400) Neutrophils (%) (Auto) 85 % (31-73) Lymphocytes (%) (Auto) 9 % (24-48) Monocytes (%) (Auto) 5 % (0-9) Eosinophils (%) (Auto) 0 % (0-3) Basophils (%) (Auto) 1 % (0-3) Neutrophils # (Auto) 10.9 x10^3uL (1.8-7.7) Lymphocytes # (Auto) 1.1 x10^3/uL (1.0-4.8) Monocytes # (Auto) 0.7 x10^3/uL (0.0-1.1) Eosinophils # (Auto) 0.1 x10^3/uL (0.0-0.7) Basophils # (Auto) 0.1 x10^3/uL (0.0-0.2) Sodium Level 139 mmol/L (136-145) Potassium Level 2.6 mmol/L (3.5-5.1) Chloride Level 99 mmol/L (98-107) Carbon Dioxide Level 30 mmol/L (21-32) Anion Gap 10 (6-14) Blood Urea Nitrogen 14 mg/dL (7-20) Creatinine 1.0 mg/dL (0.6-1.0) Estimated GFR (Cockcroft-Gault) 64.4 BUN/Creatinine Ratio 14 (6-20) Glucose Level 110 mg/dL (70-99) Lactic Acid Level 1.8 mmol/L (0.4-2.0) Calcium Level 10.6 mg/dL (8.5-10.1) Total Bilirubin 1.5 mg/dL (0.2-1.0) Aspartate Amino Transf (AST/SGOT) 164 U/L (15-37) Alanine Aminotransferase (ALT/SGPT) 231 U/L (14-59) Alkaline Phosphatase 181 U/L (46-116) Creatine Kinase 64 U/L (26-192) Troponin I Quantitative 0.024 ng/mL (0.000-0.055) MN-Vtd-C-Type Natriuretic Peptide 1120 pg/mL (0-449) Total Protein 7.1 g/dL (6.4-8.2) Albumin 2.5 g/dL (3.4-5.0) Albumin/Globulin Ratio 0.5 (1.0-1.7) Lipase 94 U/L (73-393) Urine Collection Type U cath Urine Color Nguyen Urine Clarity Clear Urine pH 6.0 Urine Specific [place] 1.015 Urine Protein 100 mg/dL (NEG-TRACE) Urine Glucose (UA) Negative mg/dL (NEG) Urine Ketones (Stick) Negative mg/dL (NEG) Urine Blood Negative (NEG) Urine Nitrite Negative (NEG) Urine Bilirubin Small (NEG) Urine Urobilinogen Dipstick 4.0 mg/dL (0.2 mg/dL) Urine Leukocyte Esterase Negative (NEG) Urine RBC 0 /HPF (0-2) Urine WBC Occ /HPF (0-4) Urine Squamous Epithelial Cells Few /LPF Urine Renal Epithelial Cells Few /LPF Urine Bacteria 0 /HPF (0-FEW) Urine Hyaline Casts Few /HPF Urine Mucus Mod /LPF Laboratory Tests Test 04/28/19 22:40 04/28/19 23:04 White Blood Count 12.9 x10^3/uL (4.0-11.0) Red Blood Count 3.07 x10^6/uL (3.50-5.40) Hemoglobin 9.5 g/dL (12.0-15.5) Hematocrit 28.8 % (36.0-47.0) Mean Corpuscular Volume 94 fL (79-100) Mean Corpuscular Hemoglobin 31 pg (25-35) Mean Corpuscular Hemoglobin Concent 33 g/dL (31-37) Red Cell Distribution Width 15.5 % (11.5-14.5) Platelet Count 302 x10^3/uL (140-400) Neutrophils (%) (Auto) 85 % (31-73) Lymphocytes (%) (Auto) 9 % (24-48) Monocytes (%) (Auto) 5 % (0-9) Eosinophils (%) (Auto) 0 % (0-3) Basophils (%) (Auto) 1 % (0-3) Neutrophils # (Auto) 10.9 x10^3uL (1.8-7.7) Lymphocytes # (Auto) 1.1 x10^3/uL (1.0-4.8) Monocytes # (Auto) 0.7 x10^3/uL (0.0-1.1) Eosinophils # (Auto) 0.1 x10^3/uL (0.0-0.7) Basophils # (Auto) 0.1 x10^3/uL (0.0-0.2) Sodium Level 139 mmol/L (136-145) Potassium Level 2.6 mmol/L (3.5-5.1) Chloride Level 99 mmol/L (98-107) Carbon Dioxide Level 30 mmol/L (21-32) Anion Gap 10 (6-14) Blood Urea Nitrogen 14 mg/dL (7-20) Creatinine 1.0 mg/dL (0.6-1.0) Estimated GFR (Cockcroft-Gault) 64.4 BUN/Creatinine Ratio 14 (6-20) Glucose Level 110 mg/dL (70-99) Lactic Acid Level 1.8 mmol/L (0.4-2.0) Calcium Level 10.6 mg/dL (8.5-10.1) Total Bilirubin 1.5 mg/dL (0.2-1.0) Aspartate Amino Transf (AST/SGOT) 164 U/L (15-37) Alanine Aminotransferase (ALT/SGPT) 231 U/L (14-59) Alkaline Phosphatase 181 U/L (46-116) Creatine Kinase 64 U/L (26-192) Troponin I Quantitative 0.024 ng/mL (0.000-0.055) HU-Whb-V-Type Natriuretic Peptide 1120 pg/mL (0-449) Total Protein 7.1 g/dL (6.4-8.2) Albumin 2.5 g/dL (3.4-5.0) Albumin/Globulin Ratio 0.5 (1.0-1.7) Lipase 94 U/L (73-393) Urine Collection Type U cath Urine Color Nguyen Urine Clarity Clear Urine pH 6.0 Urine Specific [place] 1.015 Urine Protein 100 mg/dL (NEG-TRACE) Urine Glucose (UA) Negative mg/dL (NEG) Urine Ketones (Stick) Negative mg/dL (NEG) Urine Blood Negative (NEG) Urine Nitrite Negative (NEG) Urine Bilirubin Small (NEG) Urine Urobilinogen Dipstick 4.0 mg/dL (0.2 mg/dL) Urine Leukocyte Esterase Negative (NEG) Urine RBC 0 /HPF (0-2) Urine WBC Occ /HPF (0-4) Urine Squamous Epithelial Cells Few /LPF Urine Renal Epithelial Cells Few /LPF Urine Bacteria 0 /HPF (0-FEW) Urine Hyaline Casts Few /HPF Urine Mucus Mod /LPF VTE Prophylaxis Ordered VTE Prophylaxis Devices: Yes VTE Pharmacological Prophylaxi: Yes Assessment/Plan Assessment/Plan Critical hypokalemia secondary to poor intake-no diarrhea or GI loss or vomiting, can consult drug inspector - replace, recheck at 1 PM later Elevated LFTs in a nonalcoholic-no evidence of fatty liver or gallbladder disease on US-consult GI, re check LFTS Geriatric dyslipidemia, hypothyroidism - chronic stable Accelerated hypertension POA - have reconciled home meds \FULL CODE PLAN: replace K - recheck levels 1 PM Might consider rechecking LFTs with 1 pm labs or tomorrow Consult GI I defer checkins hepatitis panel, if needed, to GI Continue supportive meds Address hypertension-I have reconciled home meds Home with family on discharge either later today or tomorrow dw family member JOHANN GRAFF MD April 29, 2019 10:50
[2019-04-29 10:55] VITALS: BP 142/73
--- NOTE | 2019-04-29 11:00 | NUR ---
SW following pt for anticipated dc needs. Chart reviewed. Pt lives at home with family. PT/OT pending. SW will await for PT/OT recommendation to assess discharge needs. Addendum: 04/29/19 at 1443 by KELSEY ALLEN SW Pt does not have PT/OT needs.
--- NOTE | 2019-04-29 11:34 | PDOC2 ---
GI CONSULT Reason For Consult: elev LFTs HPI: HPI: 79 y/o female evaluated in ER for cough. Help with history from daughter. Difficult to say when symptoms began. GI asked to see re: abnormal LFTs. Bili 1.5, ALT 231, AST 164, AP 181. RUQ US was unrevealing. They are unaware of any previous liver history. Transaminases have been elevated (much more significantly in 11/2014) on review of past labs. In 11/2014, Hep C Ab reactive w/ PCR 6,233. Daughter says she had a blood transfusion years ago. Other notes suggest "posttussive vomiting" - daughter and pt report productive cough with phlegm and gagging but no n/v. Denies reflux/heartburn, dysphagia/odynophagia, early satiety, abd pain, diarrhea, weight loss, change in appetite, or bleeding. Occasional constipation improved w/ Miralax PRN. "Sometimes I eat and sometimes I don't." Can see she had an EGD w/ Dr. Ruiz for n/v and abnormal imaging in 11/2014 that showed mild reflux esophagitis and hiatal hernia. Daughter reports normal colonoscopy about 8-10 years ago (though other notes say she has never had a co lonoscopy). No GB, pancreas, or PUD history. No NSAIDs. Does take ASA 81mg QD and amiodarone along with occasional Tylenol. Chronic anemia and previous bone marrow biopsy w/ MGUS - daughter indicates followed by hematology. PMH: PMH: HTN, HLD, carotid artery stenosis, CVA, GERD, Hep C, eczema, gout, MGUS hysterectomy, right shoulder surgery, bone marrow biopsy, thyroid biopsy FH: Family History: No pertinent hx Social History: Smoke: Quit ALCOHOL: other ("I used to drink") Drugs: None ROS: GEN: Denies fevers, chills, sweats HEENT: Denies blurred vision, sore throat CV: Denies chest pain RESP: +cough GI: Per HPI : Denies hematuria, dysuria ENDO: Denies weight changes NEURO: Denies confusion, dizziness MSK: Denies weakness, joint pain/swelling SKIN: Denies jaundice, pruritus Vitals: Vitals: Vital Signs Date Time Temp Pulse Resp B/P (MAP) Pulse Ox O2 Delivery O2 Flow Rate FiO2 04/29/19 08:00 Room Air 04/29/19 07:10 98.3 89 16 164/80 (108) 100 98.3 Labs: Labs: Laboratory Tests Test 04/28/19 22:40 04/28/19 23:04 White Blood Count 12.9 x10^3/uL (4.0-11.0) Red Blood Count 3.07 x10^6/uL (3.50-5.40) Hemoglobin 9.5 g/dL (12.0-15.5) Hematocrit 28.8 % (36.0-47.0) Mean Corpuscular Volume 94 fL (79-100) Mean Corpuscular Hemoglobin 31 pg (25-35) Mean Corpuscular Hemoglobin Concent 33 g/dL (31-37) Red Cell Distribution Width 15.5 % (11.5-14.5) Platelet Count 302 x10^3/uL (140-400) Neutrophils (%) (Auto) 85 % (31-73) Lymphocytes (%) (Auto) 9 % (24-48) Monocytes (%) (Auto) 5 % (0-9) Eosinophils (%) (Auto) 0 % (0-3) Basophils (%) (Auto) 1 % (0-3) Neutrophils # (Auto) 10.9 x10^3uL (1.8-7.7) Lymphocytes # (Auto) 1.1 x10^3/uL (1.0-4.8) Monocytes # (Auto) 0.7 x10^3/uL (0.0-1.1) Eosinophils # (Auto) 0.1 x10^3/uL (0.0-0.7) Basophils # (Auto) 0.1 x10^3/uL (0.0-0.2) Sodium Level 139 mmol/L (136-145) Potassium Level 2.6 mmol/L (3.5-5.1) Chloride Level 99 mmol/L (98-107) Carbon Dioxide Level 30 mmol/L (21-32) Anion Gap 10 (6-14) Blood Urea Nitrogen 14 mg/dL (7-20) Creatinine 1.0 mg/dL (0.6-1.0) Estimated GFR (Cockcroft-Gault) 64.4 BUN/Creatinine Ratio 14 (6-20) Glucose Level 110 mg/dL (70-99) Lactic Acid Level 1.8 mmol/L (0.4-2.0) Calcium Level 10.6 mg/dL (8.5-10.1) Total Bilirubin 1.5 mg/dL (0.2-1.0) Aspartate Amino Transf (AST/SGOT) 164 U/L (15-37) Alanine Aminotransferase (ALT/SGPT) 231 U/L (14-59) Alkaline Phosphatase 181 U/L (46-116) Creatine Kinase 64 U/L (26-192) Troponin I Quantitative 0.024 ng/mL (0.000-0.055) YT-Yze-C-Type Natriuretic Peptide 1120 pg/mL (0-449) Total Protein 7.1 g/dL (6.4-8.2) Albumin 2.5 g/dL (3.4-5.0) Albumin/Globulin Ratio 0.5 (1.0-1.7) Lipase 94 U/L (73-393) Urine Collection Type U cath Urine Color Nguyen Urine Clarity Clear Urine pH 6.0 Urine Specific [place] 1.015 Urine Protein 100 mg/dL (NEG-TRACE) Urine Glucose (UA) Negative mg/dL (NEG) Urine Ketones (Stick) Negative mg/dL (NEG) Urine Blood Negative (NEG) Urine Nitrite Negative (NEG) Urine Bilirubin Small (NEG) Urine Urobilinogen Dipstick 4.0 mg/dL (0.2 mg/dL) Urine Leukocyte Esterase Negative (NEG) Urine RBC 0 /HPF (0-2) Urine WBC Occ /HPF (0-4) Urine Squamous Epithelial Cells Few /LPF Urine Renal Epithelial Cells Few /LPF Urine Bacteria 0 /HPF (0-FEW) Urine Hyaline Casts Few /HPF Urine Mucus Mod /LPF Allergies: Coded Allergies: No Known Drug Allergies (Unverified , 05/01/17) Medications: Current Medications Medications (Trade) Dose Ordered Sig/Camilo Route PRN Reason Start Time Stop Time Status Last Admin Dose Admin Albuterol/ Ipratropium (Duoneb) 3 ml 1X ONCE NEB 04/28/19 22:00 04/28/19 22:01 DC 04/28/19 22:46 Methylprednisolone Sodium Succinate (SOLU-Medrol 125MG VIAL) 125 mg 1X ONCE IV 04/28/19 22:00 04/28/19 22:01 DC 04/28/19 22:22 Potassium Chloride/Water 100 ml @ 100 mls/hr Q1H IV 04/29/19 00:00 04/29/19 01:59 DC 04/29/19 01:18 Sodium Chloride 1,000 ml @ 125 mls/hr 1X ONCE IV 04/29/19 00:00 04/29/19 07:59 DC 04/29/19 00:10 Sodium Chloride 1,000 ml @ 100 mls/hr Q10H IV 04/29/19 01:00 04/30/19 00:59 04/29/19 08:31 Imaging: Imaging: CXR IMPRESSION: No acute abnormality is seen. RUQ US IMPRESSION: 1. No cholelithiasis or sonographic evidence of acute cholecystitis. 2. No sonographic signs of hepatic steatosis. 3. Right renal lesion most likely a complicated renal cyst. Short-term follow-up ultrasound of the right kidney recommended. PE: GEN: NAD HEENT: cervical collar LUNGS: clear anteriorly, occasional phlegmy cough HEART: RRR, distant ABD: NABS, S/ND/NT EXTREMITY: No edema SKIN: No rashes, no jaundice NEURO/PSYCH: A & O 3 A/P: A/P: Cough Abnormal LFTs, h/o Hep C and amiodarone use - normal liver on imaging Hypokalemia Chronic anemia, MGUS Mild reflux, hiatal hernia - on past EGD Intermittent constipation - controlled w/ Miralax CRC screen - daughter thinks she had a colonoscopy at one point79 y/o female evaluated in ER for cough. Help with history from daughter. Difficult to say when symptoms began. GI asked to see re: abnormal LFTs. Bili 1.5, ALT 231, AST 164, AP 181. RUQ US was unrevealing. -- Abnormal LFTs noted in the past. H/o Hep C but no evidence of cirrhosis on imaging. Note has DC orders - no objections per GI. ROMAN MARMOLEJO April 29, 2019 11:34
[2019-04-29 14:13] LABS: ALBUMIN 2.2 g/dL (3.4-5.0); DIRECT BILIRUBIN 1.1 mg/dL (0.0-0.2); POTASSIUM 3.4 mmol/L (3.5-5.1); TOTAL BILIRUBIN 1.4 mg/dL (0.2-1.0); TOTAL PROTEIN 6.9 g/dL (6.4-8.2)
--- NOTE | 2019-04-29 14:48 | PDOC3 ---
Discharge Summary Visit Information Date of Admission: April 29, 2019 Date of Discharge: April 29, 2019 Admitting Diagnosis Comment: Critical hypokalemia secondary to poor intake-no diarrhea or GI loss or vomiting, can consult applications project manager - replace, recheck at 1 PM later Elevated LFTs in a nonalcoholic-no evidence of fatty liver or gallbladder disease on US-consult GI, re check LFTS Geriatric dyslipidemia, hypothyroidism - chronic stable Accelerated hypertension POA - have reconciled home meds \FULL CODE Final Diagnosis Problems Medical Problems: (1) Acute bronchitis Status: Acute (2) Anemia Status: Acute (3) C2 cervical fracture Status: Acute (4) Dementia Status: Acute (5) Elevated liver function tests Status: Acute (6) Hypercalcemia Status: Acute (7) Hypoalbuminemia Status: Acute Brief Hospital Course Allergies Allergies Coded Allergies Type Severity Reaction Last Updated Verified No Known Drug Allergies 05/01/17 No Vital Signs Vital Signs Date Time Temp Pulse Resp B/P (MAP) Pulse Ox O2 Delivery O2 Flow Rate FiO2 04/29/19 11:42 85 142/73 04/29/19 10:55 97.5 15 100 Room Air 97.5 Lab Results Laboratory Tests Test 04/28/19 22:40 04/28/19 23:04 04/29/19 13:45 White Blood Count 12.9 x10^3/uL (4.0-11.0) Red Blood Count 3.07 x10^6/uL (3.50-5.40) Hemoglobin 9.5 g/dL (12.0-15.5) Hematocrit 28.8 % (36.0-47.0) Mean Corpuscular Volume 94 fL (79-100) Mean Corpuscular Hemoglobin 31 pg (25-35) Mean Corpuscular Hemoglobin Concent 33 g/dL (31-37) Red Cell Distribution Width 15.5 % (11.5-14.5) Platelet Count 302 x10^3/uL (140-400) Neutrophils (%) (Auto) 85 % (31-73) Lymphocytes (%) (Auto) 9 % (24-48) Monocytes (%) (Auto) 5 % (0-9) Eosinophils (%) (Auto) 0 % (0-3) Basophils (%) (Auto) 1 % (0-3) Neutrophils # (Auto) 10.9 x10^3uL (1.8-7.7) Lymphocytes # (Auto) 1.1 x10^3/uL (1.0-4.8) Monocytes # (Auto) 0.7 x10^3/uL (0.0-1.1) Eosinophils # (Auto) 0.1 x10^3/uL (0.0-0.7) Basophils # (Auto) 0.1 x10^3/uL (0.0-0.2) Sodium Level 139 mmol/L (136-145) Potassium Level 2.6 mmol/L (3.5-5.1) 3.4 mmol/L (3.5-5.1) Chloride Level 99 mmol/L (98-107) Carbon Dioxide Level 30 mmol/L (21-32) Anion Gap 10 (6-14) Blood Urea Nitrogen 14 mg/dL (7-20) Creatinine 1.0 mg/dL (0.6-1.0) Estimated GFR (Cockcroft-Gault) 64.4 BUN/Creatinine Ratio 14 (6-20) Glucose Level 110 mg/dL (70-99) Lactic Acid Level 1.8 mmol/L (0.4-2.0) Calcium Level 10.6 mg/dL (8.5-10.1) Total Bilirubin 1.5 mg/dL (0.2-1.0) 1.4 mg/dL (0.2-1.0) Aspartate Amino Transf (AST/SGOT) 164 U/L (15-37) 138 U/L (15-37) Alanine Aminotransferase (ALT/SGPT) 231 U/L (14-59) 196 U/L (14-59) Alkaline Phosphatase 181 U/L (46-116) 173 U/L (46-116) Creatine Kinase 64 U/L (26-192) Troponin I Quantitative 0.024 ng/mL (0.000-0.055) BC-Kfx-N-Type Natriuretic Peptide 1120 pg/mL (0-449) Total Protein 7.1 g/dL (6.4-8.2) 6.9 g/dL (6.4-8.2) Albumin 2.5 g/dL (3.4-5.0) 2.2 g/dL (3.4-5.0) Albumin/Globulin Ratio 0.5 (1.0-1.7) Lipase 94 U/L (73-393) Urine Collection Type U cath Urine Color Nguyen Urine Clarity Clear Urine pH 6.0 Urine Specific [place] 1.015 Urine Protein 100 mg/dL (NEG-TRACE) Urine Glucose (UA) Negative mg/dL (NEG) Urine Ketones (Stick) Negative mg/dL (NEG) Urine Blood Negative (NEG) Urine Nitrite Negative (NEG) Urine Bilirubin Small (NEG) Urine Urobilinogen Dipstick 4.0 mg/dL (0.2 mg/dL) Urine Leukocyte Esterase Negative (NEG) Urine RBC 0 /HPF (0-2) Urine WBC Occ /HPF (0-4) Urine Squamous Epithelial Cells Few /LPF Urine Renal Epithelial Cells Few /LPF Urine Bacteria 0 /HPF (0-FEW) Urine Hyaline Casts Few /HPF Urine Mucus Mod /LPF Direct Bilirubin 1.1 mg/dL (0.0-0.2) Laboratory Tests Test 04/28/19 22:40 04/28/19 23:04 04/29/19 13:45 White Blood Count 12.9 x10^3/uL (4.0-11.0) Red Blood Count 3.07 x10^6/uL (3.50-5.40) Hemoglobin 9.5 g/dL (12.0-15.5) Hematocrit 28.8 % (36.0-47.0) Mean Corpuscular Volume 94 fL (79-100) Mean Corpuscular Hemoglobin 31 pg (25-35) Mean Corpuscular Hemoglobin Concent 33 g/dL (31-37) Red Cell Distribution Width 15.5 % (11.5-14.5) Platelet Count 302 x10^3/uL (140-400) Neutrophils (%) (Auto) 85 % (31-73) Lymphocytes (%) (Auto) 9 % (24-48) Monocytes (%) (Auto) 5 % (0-9) Eosinophils (%) (Auto) 0 % (0-3) Basophils (%) (Auto) 1 % (0-3) Neutrophils # (Auto) 10.9 x10^3uL (1.8-7.7) Lymphocytes # (Auto) 1.1 x10^3/uL (1.0-4.8) Monocytes # (Auto) 0.7 x10^3/uL (0.0-1.1) Eosinophils # (Auto) 0.1 x10^3/uL (0.0-0.7) Basophils # (Auto) 0.1 x10^3/uL (0.0-0.2) Sodium Level 139 mmol/L (136-145) Potassium Level 2.6 mmol/L (3.5-5.1) 3.4 mmol/L (3.5-5.1) Chloride Level 99 mmol/L (98-107) Carbon Dioxide Level 30 mmol/L (21-32) Anion Gap 10 (6-14) Blood Urea Nitrogen 14 mg/dL (7-20) Creatinine 1.0 mg/dL (0.6-1.0) Estimated GFR (Cockcroft-Gault) 64.4 BUN/Creatinine Ratio 14 (6-20) Glucose Level 110 mg/dL (70-99) Lactic Acid Level 1.8 mmol/L (0.4-2.0) Calcium Level 10.6 mg/dL (8.5-10.1) Total Bilirubin 1.5 mg/dL (0.2-1.0) 1.4 mg/dL (0.2-1.0) Aspartate Amino Transf (AST/SGOT) 164 U/L (15-37) 138 U/L (15-37) Alanine Aminotransferase (ALT/SGPT) 231 U/L (14-59) 196 U/L (14-59) Alkaline Phosphatase 181 U/L (46-116) 173 U/L (46-116) Creatine Kinase 64 U/L (26-192) Troponin I Quantitative 0.024 ng/mL (0.000-0.055) GA-Sgk-K-Type Natriuretic Peptide 1120 pg/mL (0-449) Total Protein 7.1 g/dL (6.4-8.2) 6.9 g/dL (6.4-8.2) Albumin 2.5 g/dL (3.4-5.0) 2.2 g/dL (3.4-5.0) Albumin/Globulin Ratio 0.5 (1.0-1.7) Lipase 94 U/L (73-393) Urine Collection Type U cath Urine Color Nguyen Urine Clarity Clear Urine pH 6.0 Urine Specific [place] 1.015 Urine Protein 100 mg/dL (NEG-TRACE) Urine Glucose (UA) Negative mg/dL (NEG) Urine Ketones (Stick) Negative mg/dL (NEG) Urine Blood Negative (NEG) Urine Nitrite Negative (NEG) Urine Bilirubin Small (NEG) Urine Urobilinogen Dipstick 4.0 mg/dL (0.2 mg/dL) Urine Leukocyte Esterase Negative (NEG) Urine RBC 0 /HPF (0-2) Urine WBC Occ /HPF (0-4) Urine Squamous Epithelial Cells Few /LPF Urine Renal Epithelial Cells Few /LPF Urine Bacteria 0 /HPF (0-FEW) Urine Hyaline Casts Few /HPF Urine Mucus Mod /LPF Direct Bilirubin 1.1 mg/dL (0.0-0.2) Brief Hospital Course Ms. Rome is a 79 old [sex] who presented with [ ] 79-year-old -[place] female who lives at home with family, came to the ER last because of chest congestion and some mild abdominal pain. She thought it was gas, she is feeling better. But admitted because of elevated LFTs in 100- 200s, no history of hepatitis or alcoholism. Ultrasound does not show any gallbladder disease or fatty liver. Also admitted because of critical hypokalemia 2.6. She admits that she hasn't been eating lately. Denies any diarrhea vomiting. Got 20 KCl at the ER. I'm getting 60 more and advising 20 by mouth once a day and advised her to increase oral intake. We'll consult GI regarding elevated LFTs and maybe check for hepatitis panel if needed. Otherwise she wants to go home I think she can actually go home if no further workup here or with repeat LFTs by PCP and the rest can be done as outpatient. Chest x-ray is negative for any pneumonia. She feels better with regards to chest congestion. WBC 12, platelets adequate, BP on the high side and I have reconciled home meds. Past medical history hypertension dyslipidemia hypothyroidism full Code Discharge Information Condition at Discharge: Improved, Stable Disposition/Orders: D/C to Home Scheduled Acetaminophen (Tylenol) 325 Mg Tablet, 500 MG PO PRN Q6HRS for pain, (Reported) Entered as Reported by: SABA REDDY on 04/29/19 0241 Last Action: Continued on 04/29/19 0853 by JOHANN GRAFF Allopurinol (Allopurinol) 100 Mg Tablet, 1 TAB PO DAILY for gout, #30 Ref 5 (Reported) Entered as Reported by: BRIAN REN on 02/09/19733 Last Action: Continued on 04/29/19852 by JOHANN GRAFF Amiodarone Hcl (Amiodarone Hcl) 200 Mg Tablet, 200 MG PO DAILY, (Reported) Entered as Reported by: RUY WILLETT on 11/10/14 1247 Last Action: Continued on 04/29/19852 by JOHANN GRAFF Amlodipine Besylate (Amlodipine Besylate) 10 Mg Tablet, 10 MG PO DAILY, (Re ported) Entered as Reported by: KAVITA FERNÁNDEZ on 02/18/17 0342 Last Action: Continued on 04/29/19852 by JOHANN GRAFF Aspirin (Aspirin) 81 Mg Tab.chew, 1 TAB PO DAILY for RX, #30 Ref 3 (Reported) Entered as Reported by: BRIAN REN on 02/09/19733 Last Action: Continued on 04/29/19852 by JOHANN GRAFF Atorvastatin Calcium (Atorvastatin Calcium) 20 Mg Tablet, 1 TAB PO DAILY for High cholesterol, #30 Ref 5 (Reported) Entered as Reported by: BRIAN REN on 02/09/19733 Last Action: Continued on 04/29/19852 by JOHANN GRAFF Hydralazine Hcl (Hydralazine Hcl) 25 Mg Tablet, 1 TAB PO BID for HTN, #60 Ref 5 (Reported) Entered as Reported by: BRIAN REN on 02/09/19733 Last Action: Converted on 04/29/19852 by JOHANN GRAFF Potassium Chloride (Klor-Con M20) 20 Meq Tab.er.prt, 20 MEQ PO DAILYWBKFT for low K MDD 1 for 7 Days, #7 Prescribed by: JOHANN GRAFF on 04/29/19 1041 Scheduled PRN Polyethylene Glycol 3350 (Miralax) 17 Gm Powd.pack, 1 PACKET PO DAILY PRN for CONSTIPATION, #30 Ref 3 (Reported) Entered as Reported by: BRIAN REN on 02/09/19733 Last Action: Converted on 04/29/19852 by JOHANN JAIME MD April 29, 2019 14:48
[2019-04-29 15:15] VITALS: BP 150/72
--- NOTE | 2019-04-29 15:20 | NUR ---
Discharge Note: [facility] Discharge instructions and discharge home medications reviewed with Family Member and a copy given. All questions have been answered and understanding verbalized. The following instructions and handouts were given: prescriptions for potassium, follow up instructions. Discontinued lines and drains: 24 gauge left AC, tip intact. patient tolerated well. Patient discharged to home with self care via family.
[2019-04-29] MEDS ORDERED: ATORVASTATIN CALCIUM 20 MG TABLET PO SCH (21:00)
[2019-04-30] MEDS ORDERED: POTASSIUM CHLORIDE 20 MEQ TABLET.ER. PO SCH (08:00)
[2019-04-30] MEDS ORDERED: POLYETHYLENE GLYCOL 3350 17 GM PACKET. PO PRN (09:00)
== END 2019-04-29 15:23 | disposition home or self-care (01) | DRG 640 ==
LOC: ER 20:44 → 6 SOUTH 23:33
PROVIDERS: ADMIT Internal Medicine; ATTEND Internal Medicine
DX: E87.6 Hypokalemia (principal); E43 Unspecified severe protein-calorie malnutrition; E78.00 Pure hypercholesterolemia, unspecified; M10.9 Gout, unspecified; Z90.710 Acquired absence of both cervix and uterus; I10 Essential (primary) hypertension; J20.9 Acute bronchitis, unspecified; E78.5 Hyperlipidemia, unspecified; E03.9 Hypothyroidism, unspecified; D64.9 Anemia, unspecified; D47.2 Monoclonal gammopathy; K21.0 Gastro-esophageal reflux disease with esophagitis; F03.90 Unspecified dementia, unspecified severity, without behavioral disturbance, psychotic disturbance, mood disturbance, and anxiety; E83.52 Hypercalcemia; B18.2 Chronic viral hepatitis C; Z96.619 Presence of unspecified artificial shoulder joint; Z79.82 Long term (current) use of aspirin; Z79.899 Other long term (current) drug therapy; Z82.49 Family history of ischemic heart disease and other diseases of the circulatory system
CPT/HCPCS: 36415; 71045; 76705; 80053; 80076; 81001; 82550; 83605; 83690; 83880; 84132; 84484; 85025; 87040; 93005; 94640; 96365; 96375; J2930; J3480; J7030; J7620; 99285-25